=== PATIENT | female | born 1985 | race Caucasian/White ===

== ENCOUNTER 2017-07-12 01:26 | Inpatient (IN) | payer OTHER, SELFPAY ==
--- NOTE | 2017-07-12 02:10 | ED PDOC ---
Syncope/Near Syncope/Dizziness Time Seen by Provider: 07/12/17 01:29 Chief Complaint (Nursing): Dizziness/Lightheaded Chief Complaint (Provider): Dizzy, feeling "shaky" History Per: Patient Additional Complaint(s): 29 yo female with PMHx of cirrhosis, Ascites, umbilical hernia, splenomegaly,thrombocytopenia and anemia, presents to ED dizziness and feeling "jittery." Pt reports she is supposed to be on Lactulose; however, has not taken it in 3 days because "she can not handle the medication anymore." Past Medical History Reviewed: Nursing Documentation, Vital Signs Vital Signs: Last Vital Signs Temp 98.7 F 07/12/17 01:52 Pulse 91 H 07/12/17 01:52 Resp 18 07/12/17 01:52 BP 106/66 07/12/17 01:52 Pulse Ox 99 07/12/17 01:52 - Medical History PMH: Anemia Denies: HIV, Chronic Kidney Disease Other PMH: Cirrhosis - Family History Family History: States: Unknown Family Hx - Living Arrangements Living Arrangements: With Family - Social History Current smoker - smoking cessation education provided: No Alcohol: None Drugs: Denies - Home Medications Home Medications: Ambulatory Orders Medication Instructions Recorded Spironolactone [Aldactone] 100 mg PO BID #60 tablet 09/10/15 Calcium Carbonate/Vitamin D3 2 tab PO DAILY 07/12/17 [Calcium 1,000 + D3 Caplet] Folic Acid [Folic Acid] 1 tab PO DAILY 07/12/17 Furosemide [Lasix] 1.5 tab PO BID 07/12/17 Magnesium Oxide [Mag-Oxide 400 mg PO BID 07/12/17 Magnesium] Midodrine HCl [Midodrine HCl] 5 mg PO TID 07/12/17 Nadolol [Corgard] 20 mg PO DAILY 07/12/17 Pantoprazole [Protonix EC Tab] 40 mg PO DAILY 07/12/17 Zinc Gluconate [Zinc] 50 mg PO DAILY 07/12/17 levETIRAcetam [Keppra] 500 mg PO BID 07/12/17 - Allergies Allergies/Adverse Reactions: Allergies Allergy/AdvReac Type Severity Reaction Status Date / Time Seafood Allergy RASH Uncoded 09/02/15 06:26 Review of Systems ROS Statement: Except As Marked, All Systems Reviewed And Found Negative Neurological: Positive for: Dizziness, Other ("jittery") Physical Exam - Reviewed Nursing Documentation Reviewed: Yes Vital Signs Reviewed: Yes - Physical Exam Appears: Positive for: Well, Non-toxic, No Acute Distress Head Exam: Positive for: ATRAUMATIC, NORMAL INSPECTION, NORMOCEPHALIC Skin: Positive for: Normal Color, Warm, DRY Eye Exam: Positive for: EOMI, Normal appearance, PERRL ENT: Positive for: Normal ENT Inspection Neck: Positive for: Normal, Painless ROM Cardiovascular/Chest: Positive for: Regular Rate, Rhythm Respiratory: Positive for: CNT, Normal Breath Sounds Gastrointestinal/Abdominal: Positive for: Normal Exam, Bowel Sounds, Soft Back: Positive for: Normal Inspection Extremity: Positive for: Normal ROM Neurologic/Psych: Positive for: Alert, Oriented - Laboratory Results Result Diagrams: 07/12/17 02:23 07/12/17 02:23 - ECG O2 Sat by Pulse Oximetry: 99 Medical Decision Making Medical Decision Making: Diagnostics ordered. labs discussed with ED MD, Dr. Cole, who agreed with obs at this time. Pt thrombocytopenic and ammonia level 75. Dr. christian contacted and presented to see and evaluate Pt at bedside. Arrangements made for obs Disposition - Clinical Impression Clinical Impression: Thrombocytopenia, Dizziness - Patient ED Disposition Is Patient to be Admitted: Yes - Disposition Disposition Time: 04:46 Condition: STABLE - Pt Status Changed To: Hospital Disposition Of: Observation
[2017-07-12 02:37] LABS: BASO % 0.3 % (0.0-2.0); EOS % 0.1 % (0.0-4.0); HEMATOCRIT 28.1 % (34.0-47.0); LYMPH # 0.2 K/uL (1.0-4.3); LYMPH % 6.5 % (20.0-40.0); MEAN CELL VOLUME 96.2 fl (81.0-99.0); MEAN CORPUSCULAR HEMOGLOBIN 32.1 pg (27.0-31.0); MEAN CORPUSCULAR HGB CONC 33.3 g/dL (33.0-37.0); MEAN PLATELET VOLUME 10.2 fl (7.2-11.7); MONO # 0.3 K/uL (0.0-0.8); MONO % 8.8 % (0.0-10.0); NEUT # 2.6 K/uL (1.8-7.0); NEUT % 84.3 % (50.0-75.0); RED CELL DISTRIBUTION WIDTH 16.6 % (11.5-14.5); WHITE BLOOD COUNT 3.1 K/uL (4.8-10.8)
[2017-07-12 02:46] LABS: RBC URINE 25 /hpf (0-3); URINE BACTERIA OCC (<OCC); URINE BILIRUBIN NEGATIVE (NEGATIVE); URINE BLOOD LARGE (NEGATIVE); URINE COLOR AMBER (YELLOW); URINE GLUCOSE (UA) NEG (Normal); URINE KETONE NEGATIVE (NEGATIVE); URINE LEUKOCYTE ESTERASE NEG Leu/uL (Negative); URINE PROTEIN 30 mg/dL (NEGATIVE); WBC URINE 5 /hpf (0-5)
[2017-07-12 02:48] LABS: ALB/GLOB RATIO 0.8 (1.0-2.1); ALCOHOL SERUM < 10 mg/dl (0-10); ALKALINE PHOSPHATASE 121 U/L (38-126); ALT/SGPT 74 U/L (9-52); AST/SGOT 57 U/L (14-36); BILIRUBIN,TOTAL 2.9 mg/dl (0.2-1.3); BLOOD UREA NITROGEN 19 mg/dl (7-17); CALCIUM 7.7 mg/dL (8.4-10.2); CARBON DIOXIDE 20 mmol/L (22-30); CHLORIDE 110 mmol/L (98-107); GFR AFRICAN-AMERICAN > 60; GLUCOSE,RANDOM 144 mg/dL (65-105); POTASSIUM 3.8 MMOL/L (3.6-5.0); SODIUM 137 mmol/l (132-148); TOTAL PROTEIN 5.7 G/DL (6.3-8.2)
[2017-07-12 03:12] LABS: EOSINOPHIL 1 % (0-7); NEUTROPHIL 85 % (42-75); TOTAL CELLS COUNTED 100
[2017-07-12 03:16] LABS: PLATELET COUNT 11 K/uL (130-400)
--- NOTE | 2017-07-12 04:05 | CT ---
EXAM: CT Head Without Intravenous Contrast CLINICAL HISTORY: 31 years old, female; Signs and symptoms; Dizziness; Additional info: Dizzy TECHNIQUE: Axial computed tomography images of the head/brain without intravenous contrast. All CT scans at this facility use one or more dose reduction techniques, viz.: automated exposure control; ma/kV adjustment per patient size (including targeted exams where dose is matched to indication; i.e. head); or iterative reconstruction technique. Coronal and sagittal reformatted images were created and reviewed. COMPARISON: No relevant prior studies available. FINDINGS: Brain: No intracranial hemorrhage. No mass. Minimal encephalomalacia within RIGHT frontal region. Few scattered subtle foci of decreased attenuation within periventricular/subcortical white matter. No definite edema. Ventricles: No hydrocephalus. Bones/joints: No acute fracture. Postsurgical changes of RIGHT frontal bone. Mild chronic deformity RIGHT mandibular condyle. Soft tissues: Unremarkable. Sinuses: No acute sinusitis. Mastoid air cells: No mastoid effusion. Orbits: Unremarkable as visualized. IMPRESSION: 1. Nonspecific white matter changes. Acute infarction may be CT occult within first 24 hours. If a focal deficit persists, consider followup CT or MRI for further evaluation. 2. Incidental/non-acute findings are described above.
--- NOTE | 2017-07-12 04:47 | CP.PCM.HP ---
History of Present Illness - History of Present Illness History of Present Illness: 31 y/o female with a PMHx remarkable for liver failure of unknown etiology presents to the [facility] ED today complaining of jitteryness and shakiness. Pt reports she has been feeling a little more nauseous recently and was unable to take her lactulose as prescribed because "she couldnt bear the taste and nausea " anymore. She reports she was last seen by her PMD on , and everything was going well but she began to feel ill. She contacted her PMD and he told her to go to the nearest hospital for evaluation. She reports feeling subjective fevers, w/o chills, denies sick contacts. Denies any CP/SOB/palpitiations, V/D/C , urinary symptoms. Has been compliant with all other medications. ROS: as per HPI PMD: PMD and entire team of specialists is located at [facility] in [place], she reports she is compliant with follow up PMHx: liver cirrhosis of unknown etiology, pancytopenia, brain aneurysmal rupture 4 months ago in [place]? Currently on waitlist for liver transplant Meds: as per med rec, confirmed with pt ALL: seafood Psurghx: denies SocialHx: denies hx of ETOH/tobacco/drug abuse Familyhx: denies any family hx of cancers, CAD, [place], genetic abnormalities ED course: CBC CMP Ammonia troponin utox serum alcohol Noncontrast head ct ekg Present on Admission - Present on Admission Any Indicators Present on Admission: No Past Patient History - Infectious Disease Hx of Infectious Diseases: None - Past Medical History & Family History Past Medical History?: Yes - Past Social History Smoking Status: Never Smoked Alcohol: None Drugs: Denies Home Situation {Lives}: With Family Domestic Violence: Negative - CARDIAC Hx Cardiac Disorders: No - PULMONARY Hx Respiratory Disorders: No - NEUROLOGICAL Hx Neurological Disorder: Yes HX Cerebrovascular Accident: Yes - HEENT Hx HEENT Problems: No - RENAL Hx Chronic Kidney Disease: No - ENDOCRINE/METABOLIC Hx Endocrine Disorders: No - HEMATOLOGICAL/ONCOLOGICAL Hx Anemia: Yes Hx Human Immunodeficiency Virus (HIV): No - INTEGUMENTARY Hx Dermatological Problems: Yes Hx Psoriasis: Yes - MUSCULOSKELETAL/RHEUMATOLOGICAL Hx Musculoskeletal Disorders: No - GASTROINTESTINAL Hx Gastrointestinal Disorders: Yes Other/Comment: Umbilical Hernia - GENITOURINARY/GYNECOLOGICAL Hx Genitourinary Disorders: No - PSYCHIATRIC Hx Psychophysiologic Disorder: No Hx Substance Use: No - SURGICAL HISTORY Hx Surgeries: No - ANESTHESIA Hx Anesthesia: No Meds Allergies/Adverse Reactions: Allergies Allergy/AdvReac Type Severity Reaction Status Date / Time Seafood Allergy RASH Uncoded 09/02/15 06:26 Physical Exam - Constitutional Appears: Non-toxic, No Acute Distress - Head Exam Head Exam: ATRAUMATIC, NORMOCEPHALIC - Eye Exam Eye Exam: EOMI, PERRL, Scleral icterus. absent: Conjunctival injection, Periorbital swelling - ENT Exam ENT Exam: Mucous Membranes Moist - Neck Exam Neck exam: Positive for: Full Rom, Thyromegaly. Negative for: Lymphadenopathy, Tenderness - Respiratory Exam Respiratory Exam: Clear to Auscultation Bilateral, NORMAL BREATHING PATTERN. absent: Rales, Rhonchi, Wheezes - Cardiovascular Exam Cardiovascular Exam: REGULAR RHYTHM, RRR, +S1, +S2. absent: Tachycardia, Gallop , JVD, Rubs, Systolic Murmur - GI/Abdominal Exam GI & Abdominal Exam: Distended (secondary to ascities as per pt ), Hernia (guicho- umbilical hernia ), Normal Bowel Sounds, Soft. absent: Organomegaly, Pulsatile Mass, Rebound, Rigid, Tenderness - Extremities Exam Extremities exam: Positive for: normal inspection, pedal pulses present. Negative for: calf tenderness, pedal edema, tenderness - Back Exam Back exam: NORMAL INSPECTION - Neurological Exam Neurological exam: Alert, CN II-XII Intact, Oriented x3, Reflexes Normal Additional comments: mild asterexis appreciated in both hands - Psychiatric Exam Psychiatric exam: Normal Affect, Normal Mood - Skin Skin Exam: Dry, Intact, Normal Color, Warm Results - Vital Signs Recent Vital Signs: Last Vital Signs Temp 98.7 F 07/12/17 01:52 Pulse 93 H 07/12/17 04:40 Resp 18 07/12/17 01:52 BP 106/66 07/12/17 01:52 Pulse Ox 99 07/12/17 02:11 - Labs Result Diagrams: 07/12/17 02:23 07/12/17 02:23 Labs: Laboratory Results - last 24 hr 07/12/17 07/12/17 07/12/17 02:23 02:23 02:29 WBC 3.1 L D RBC 2.92 L Hgb 9.4 L Hct 28.1 L MCV 96.2 D MCH 32.1 H MCHC 33.3 RDW 16.6 H Plt Count 11 L* D MPV 10.2 Neut % (Auto) 84.3 H Lymph % (Auto) 6.5 L [place] % (Auto) 8.8 Eos % (Auto) 0.1 Baso % (Auto) 0.3 Neut # 2.6 Lymph # 0.2 L [place] # 0.3 Eos # 0.0 Baso # 0.0 Neutrophils % (Manual) 85 H Band Neutrophils % 1 Lymphocytes % (Manual) 10 L Monocytes % (Manual) 3 Eosinophils % (Manual) 1 Platelet Estimate Markedly decreased L Poikilocytosis (manual Slight Anisocytosis (manual) Slight Ovalocytes Slight Sodium 137 Potassium 3.8 Chloride 110 H Carbon Dioxide 20 L Anion Gap 11 BUN 19 H Creatinine 0.7 Est GFR ( Amer) > 60 Est GFR (Non-Af Amer) > 60 Random Glucose 144 H Calcium 7.7 L Total Bilirubin 2.9 H AST 57 H ALT 74 H D Alkaline Phosphatase 121 Ammonia Troponin I < 0.0120 Total Protein 5.7 L Albumin 2.5 L Globulin 3.3 Albumin/Globulin Ratio 0.8 L Urine Color Urine Clarity Urine pH Ur Specific [place] Urine Protein Urine Glucose (UA) Urine Ketones Urine Blood Urine Nitrate Urine Bilirubin Urine Urobilinogen Ur Leukocyte Esterase Urine RBC (Auto) Urine Microscopic WBC Ur Squamous Epith Cells Urine Bacteria Urine Opiates Screen Negative Urine Methadone Screen Negative Ur Barbiturates Screen Negative Ur Phencyclidine Scrn Negative Ur Amphetamines Screen Negative U Benzodiazepines Scrn Negative U Oth Cocaine Metabols Negative U Cannabinoids Screen Negative Alcohol, Quantitative < 10 07/12/17 07/12/17 02:29 03:17 WBC RBC Hgb Hct MCV MCH MCHC RDW Plt Count MPV Neut % (Auto) Lymph % (Auto) [place] % (Auto) Eos % (Auto) Baso % (Auto) Neut # Lymph # [place] # Eos # Baso # Neutrophils % (Manual) Band Neutrophils % Lymphocytes % (Manual) Monocytes % (Manual) Eosinophils % (Manual) Platelet Estimate Poikilocytosis (manual Anisocytosis (manual) Ovalocytes Sodium Potassium Chloride Carbon Dioxide Anion Gap BUN Creatinine Est GFR ( Amer) Est GFR (Non-Af Amer) Random Glucose Calcium Total Bilirubin AST ALT Alkaline Phosphatase Ammonia 75 H D Troponin I Total Protein Albumin Globulin Albumin/Globulin Ratio Urine Color Sri Urine Clarity Cloudy Urine pH 5.0 Ur Specific [place] 1.023 Urine Protein 30 Urine Glucose (UA) Neg Urine Ketones Negative Urine Blood Large Urine Nitrate Negative Urine Bilirubin Negative Urine Urobilinogen 4.0 H Ur Leukocyte Esterase Neg Urine RBC (Auto) 25 H Urine Microscopic WBC 5 Ur Squamous Epith Cells 1 Urine Bacteria Occ H Urine Opiates Screen Urine Methadone Screen Ur Barbiturates Screen Ur Phencyclidine Scrn Ur Amphetamines Screen U Benzodiazepines Scrn U Oth Cocaine Metabols U Cannabinoids Screen Alcohol, Quantitative Assessment & Plan - Assessment and Plan (Free Text) Assessment: 31 y/o female with PMHx of liver failure and pancytopenia admitted for elevated ammonia levels with asterexis. Plan: 1) Asterexis secondary to elevated Ammonia -start Lactulose 10mg PO QD for 2-3 BMs per day -repeat ammonia level -low protein, low salt hepatic diet -monitor vitals 2) pancytopenia -chronic as per pt, currently being followed by at [facility] -monitor 3) liver cirrhosis of unknown etiology -pt was worked up at [facility] -currently being followed by GI in [facility], awaiting transplant -resume home meds 4) DVT PPx -platelets: 11 -SCDs prn -Lovenox contraindicated
[2017-07-12 04:57] LABS: PARTIAL THROMBOPLASTIN TIME 45.4 Seconds (25.6-37.1)
[2017-07-12] MEDS ORDERED: Lactulose 10 gm/15 ml Syrup PO PRN (06:30)
--- NOTE | 2017-07-12 08:41 | CP.PCM.PN ---
Subjective - Date & Time of Evaluation Date of Evaluation: 07/12/17 Time of Evaluation: : - Subjective Subjective: Progress Note for Dr. Araya 31 year old female with a PMHx remarkable for liver failure seen at bedside. Patient is in NAD and AAOx3. Patient reports that she continues to feel nausea and fever with jitteriness and shakiness. She also reports feeling full despite eating very little. She ate a bowl of cereal last night. She reports she hasn't produce a BM for the past 2 days. She reports she can sit in the bathroom for a long time feeling the urge to go but won't be able to produce any BM. She doesn' t want to take the lactulose as prescribed because she reports the medication makes her more nauseated. Patient denies shortness of breath, chills, chest pain, palpitations. Denies Calf tenderness. No acute events overnight. Interpretation service used: Al[facility] [id number] Gynx- Last LMP is 2 years ago. Objective - Vital Signs/Intake and Output Vital Signs (last 24 hours): Temp Pulse Resp BP Pulse Ox 100.2 F H 110 H 19 105/69 98 07/12/17 08:13 07/12/17 08:13 07/12/17 08:13 07/12/17 08:13 07/12/17 08:13 - Medications Medications: Current Medications Folic Acid (Folic Acid) 1 mg PO DAILY [facility] Furosemide (Lasix) 60 mg PO BID [facility] Home Med (Calcium Carbonate/Vitamin D3 [Calcium 1,000 + D3 Caplet]) 2 tab PO DAILY [facility] Home Med (Zinc Gluconate [Zinc]) 50 mg PO DAILY [facility] Lactulose (Enulose) 10 gm PO DAILY PRN PRN Reason: Constipation Levetiracetam (Keppra) 500 mg PO BID [facility] Magnesium Oxide (Mag-Ox) 400 mg PO BID [facility] Midodrine (Proamatine) 5 mg PO TID [facility] Nadolol (Corgard) 20 mg PO DAILY [facility] Ondansetron HCl (Zofran Inj) 4 mg IVP Q6 PRN PRN Reason: Nausea/Vomiting Last Admin: 07/12/17 05:33 Dose: 4 mg Pantoprazole Sodium (Protonix Ec Tab) 40 mg PO DAILY [facility] Spironolactone (Aldactone) 100 mg PO BID [facility] - Labs Labs: 07/12/17 02:23 07/12/17 02:23 PT 21.5 Seconds (9.8-13.1) H 07/12/17 04:44 INR 1.9 (0.9-1.2) H 07/12/17 04:44 APTT 45.4 Seconds (25.6-37.1) H 07/12/17 04:44 - Constitutional Appears: No Acute Distress, Chronically Ill - Head Exam Head Exam: NORMAL INSPECTION - Eye Exam Eye Exam: EOMI, Normal appearance Additional comments: mild scleral icterus - ENT Exam ENT Exam: Mucous Membranes Moist - Neck Exam Neck Exam: Full ROM - Respiratory Exam Respiratory Exam: Clear to Ausculation Bilateral, NORMAL BREATHING PATTERN. absent: Decreased Breath Sounds, Prolonged Expiratory Phase, Rales, Rhonchi, Wheezes, Respiratory Distress, Stridor - Cardiovascular Exam Cardiovascular Exam: REGULAR RHYTHM, +S1, +S2 - GI/Abdominal Exam GI & Abdominal Exam: Tenderness, Hernia, Normal Bowel Sounds. absent: Pulsatile Mass, Rebound Additional comments: Splenomegaly - Extremities Exam Extremities Exam: Normal Capillary Refill, Normal Inspection. absent: Tenderness - Neurological Exam Neurological Exam: Alert, Awake, Oriented x3 Additional comments: mild asterexis appreciated in both hands - Psychiatric Exam Psychiatric exam: Normal Affect, Normal Mood Assessment and Plan - Assessment and Plan (Free Text) Assessment: 31 y/o female with PMHx of liver failure and pancytopenia admitted for elevated ammonia levels with asterexis. Plan: Asterexis secondary to elevated Ammonia in pt with Liver Cirrhosis -repeat ammonia level in AM -start pt on Rifaximin 500mg PO BID -GI consulted Dr. Betancourt- recommendations appreciated -will call [facility] where her GI and PMD is located -[facility] Liver Clinic Phone ([place]): [phone] Abdominal Pain with Liver Cirrhosis -Tmax 100.2 -will abdomen and pelvis CT w/ contrast ordered -will be NPO for now -will evaluate for ascites w/ CT abdomen and pelvis and consult IR -IR consulted Dr. Luna- recommendations appreciated Fever with Liver Cirrhosis -Tmax 100.2 -ordered chest x-ray r/o pneumonia -influenza A/B swab ordered -blood culture ordered -urine culture ordered Constipation -one dose Lactulose 200gm WV x1 -start pt on Rifaximin 500mg PO BID Pancytopenia- Chronic -repeat CBC in AM -H/H(9.4/28.1) -will continue to monitor -PT/INR/PTT (21.5/1.9/45.4) DVT PPx -SCDs indicated -Platelets: 11 -Lovenox contraindicated Diet -NPO status (ordered after breakfast this AM) -dietitian consulted- for screen- recommendations appreciated -will advance after CT abdomen and pelvis Status -Full Code
[2017-07-12] MEDS: Magnesium Oxide 400 mg Tab UD PO SCH ×2 (08:43→17:32)
[2017-07-12] MEDS ORDERED: Pantoprazole 40 mg EC Tab PO SCH (09:00)
[2017-07-12] MEDS ORDERED: CHOLECALCIFEROL 1000 UNIT PO SCH (09:00)
[2017-07-12] MEDS ORDERED: ZINC GLUCONATE 50 MG PO SCH (09:00)
[2017-07-12] MEDS ORDERED: CALCIUM CARBONATE 1200 MG PO SCH (09:00)
[2017-07-12] MEDS ORDERED: Barium Sulfate Susp 2.1% w/v, 2.0% w/w 450 mL Bottle PO ONE ×3 (11:00→11:58)
[2017-07-12] MEDS ORDERED: Lactulose 10 gm/15 ml (Rectal Use) PR ONE (11:00)
--- NOTE | 2017-07-12 12:04 | CARD ---
APPROVED REPORT EKG Measurement Heart [id number] <Conclusion> Normal sinus rhythm Normal ECG
[2017-07-12] MEDS ORDERED: Iohexol 300 100 ML IJ ONE (17:04)
[2017-07-12] MEDS ORDERED: Sodium Chloride 0.9% 50 ML IV ONE (17:05)
--- NOTE | 2017-07-12 17:58 | CT ---
PROCEDURE: CT Abdomen and Pelvis with contrast HISTORY: Abdominal Pain, SBP, Colitis, Cirrhosis COMPARISON: Comparison is made to the previous study dated 08/21/2015 TECHNIQUE: Contrast dose: 90 mL of Omnipaque 300. Axial and reformatted coronal and sagittal CT images of the abdomen and pelvis were obtained after IV and oral contrast administration. Radiation dose: Total exam DLP = 409.22 mGy-cm. This CT exam was performed using one or more of the following dose reduction techniques: Automated exposure control, adjustment of the mA and/or kV according to patient size, and/or use of iterative reconstruction technique. FINDINGS: LOWER THORAX: Mild congestion is noted at the lung bases. No evidence of acute pathology otherwise. LIVER: Advanced cirrhotic morphology of the liver is again noted. The central portion of the portal vein is dilated. The hepatic veins are not visualized in this study. No evidence of discrete enhancing mass lesion in the liver. GALLBLADDER AND BILE DUCTS: The gallbladder is mildly distended contains slightly high attenuation which could be due to contrast concentration in the gallbladder versus sludge. No evidence of acute cholecystitis P PANCREAS: No evidence of acute pathology in the pancreas. The main pancreatic duct is not dilated. SPLEEN: The spleen is moderately to markedly enlarged likely due to severe portal hypertension. ADRENALS: Unremarkable. No mass. KIDNEYS AND URETERS: Unremarkable. No hydronephrosis. No solid mass. VASCULATURE: There are markedly dilated collateral vessels in the mid and upper abdomen consistent with portal systemic shunt due to severe portal hypertension. The abdominal aorta is normal in caliber. BOWEL: Ascending colon moderate wall thickening is noted likely represent colitis. The descending and sigmoid colon are not distended therefore cannot be evaluated. No evidence of small bowel obstruction. APPENDIX: No evidence of appendicitis. PERITONEUM: There is small to moderate ascites in the abdomen and pelvis. LYMPH NODES: Mildly enlarged razia hepatis lymph nodes are noted. BLADDER: Unremarkable. REPRODUCTIVE: Unremarkable. BONES: No acute fracture. OTHER FINDINGS: There is umbilical hernia contains fluid measures 7 centimeter in the transverse diameter and 4 centimeter in the AP diameter. IMPRESSION: Re- demonstration of advanced cirrhosis associated with severe portal hypertension as described above. Marked splenomegaly likely due to portal hypertension. Markedly dilated collateral vessels in the upper abdomen. Ascending colon wall thickening highly suspicious for colitis. Small to moderate ascites. Umbilical hernia contains fluid .
[2017-07-12] MEDS: Ciprofloxacin 200mg/100ml D5W 100 ML IVPB SCH (20:31)
[2017-07-12] MEDS ORDERED: HYDROmorphone 0.5 mg/0.5 ml ISec IVP ONE (23:53)
[2017-07-13 06:57] LABS: BLOOD UREA NITROGEN 15 mg/dl (7-17); CARBON DIOXIDE 18 mmol/L (22-30); CHLORIDE 109 mmol/L (98-107); GFR AFRICAN-AMERICAN > 60; GLUCOSE,RANDOM 84 mg/dL (65-105)
[2017-07-13 06:59] LABS: SODIUM 131 mmol/l (132-148)
[2017-07-13 07:08] LABS: BASO % 0.3 % (0.0-2.0); EOS % 0.5 % (0.0-4.0); HEMATOCRIT 25.6 % (34.0-47.0); LYMPH # 0.2 K/uL (1.0-4.3); LYMPH % 6.9 % (20.0-40.0); MEAN CELL VOLUME 94.8 fl (81.0-99.0); MEAN CORPUSCULAR HEMOGLOBIN 32.5 pg (27.0-31.0); MEAN CORPUSCULAR HGB CONC 34.3 g/dL (33.0-37.0); MEAN PLATELET VOLUME 9.8 fl (7.2-11.7); MONO # 0.4 K/uL (0.0-0.8); MONO % 11.1 % (0.0-10.0); NEUT # 2.8 K/uL (1.8-7.0); NEUT % 81.2 % (50.0-75.0); NRBC % 0.2 % (0.0-0.0); RED CELL DISTRIBUTION WIDTH 16.8 % (11.5-14.5); WHITE BLOOD COUNT 3.5 K/uL (4.8-10.8)
[2017-07-13 07:27] LABS: CALCIUM 7.5 mg/dL (8.4-10.2); POTASSIUM 3.8 MMOL/L (3.6-5.0)
--- NOTE | 2017-07-13 08:07 | CP.PCM.PN ---
Subjective - Date & Time of Evaluation Date of Evaluation: 07/13/17 Time of Evaluation: 07:25 - Subjective Subjective: Pt seen and examined at bedside this morning. Pt reports she still has mild nausea but it's getting better. Reports one episode of NBNB vomiting yesterday after taking lactulose. Reports 3 small BM yesterday and one small BM this morning. Tolerating PO. Pt had fever last night (100.5 F Tmax). Denies hematochezia, melena, BRBPR, chest pain,dyspnea, calf pain or chills. Objective - Vital Signs/Intake and Output Vital Signs (last 24 hours): Temp Pulse Resp BP Pulse Ox 99.6 F 96 H 20 100/66 100 07/13/17 00:41 07/13/17 00:41 07/13/17 00:41 07/13/17 00:41 07/13/17 00:41 - Medications Medications: Current Medications Folic Acid (Folic Acid) 1 mg PO DAILY [facility] Last Admin: 07/12/17 08:43 Dose: 1 mg Furosemide (Lasix) 40 mg PO DAILY [facility] Home Med (Calcium Carbonate/Vitamin D3 [Calcium 1,000 + D3 Caplet]) 2 tab PO DAILY [facility] Ciprofloxacin (Cipro 200mg/100ml D5w) 100 mls @ 100 mls/hr IVPB Q12 [facility] Last Admin: 07/12/17 20:31 Dose: 100 mls/hr Lactulose (Enulose) 10 gm PO DAILY PRN PRN Reason: Constipation Last Admin: 07/12/17 08:59 Dose: 10 gm Magnesium Oxide (Mag-Ox) 400 mg PO BID [facility] Last Admin: 07/12/17 17:32 Dose: 400 mg Midodrine (Proamatine) 10 mg PO ONCE [facility] Ondansetron HCl (Zofran Inj) 4 mg IVP Q6 PRN PRN Reason: Nausea/Vomiting Last Admin: 07/12/17 14:18 Dose: 4 mg Phytonadione (Vitamin K Tab) 5 mg PO ONCE [facility] Rifaximin (Xifaxan) 550 mg PO BID [facility] PRN Reason: Protocol Last Admin: 07/12/17 17:32 Dose: 550 mg Spironolactone (Aldactone) 100 mg PO DAILY [facility] - Labs Labs: 07/13/17 05:45 07/13/17 05:45 PT 21.5 Seconds (9.8-13.1) H 07/12/17 04:44 INR 1.9 (0.9-1.2) H 07/12/17 04:44 APTT 45.4 Seconds (25.6-37.1) H 07/12/17 04:44 - Constitutional Appears: No Acute Distress - Eye Exam Eye Exam: Normal appearance. absent: Scleral icterus - ENT Exam ENT Exam: Mucous Membranes Moist - Neck Exam Neck Exam: Full ROM, Normal Inspection. absent: Lymphadenopathy - Respiratory Exam Respiratory Exam: Clear to Ausculation Bilateral. absent: Rales, Rhonchi, Wheezes - Cardiovascular Exam Cardiovascular Exam: REGULAR RHYTHM, RRR, +S1, +S2. absent: Murmur - GI/Abdominal Exam GI & Abdominal Exam: Soft, Organomegaly (splenomegaly). absent: Guarding, Tenderness - Extremities Exam Extremities Exam: Normal Capillary Refill. absent: Calf Tenderness, Pedal Edema - Neurological Exam Neurological Exam: Alert, Awake, Oriented x3 Additional comments: No asterixis appreciated - Psychiatric Exam Psychiatric exam: Normal Affect, Normal Mood - Skin Skin Exam: absent: Petechiae Assessment and Plan - Assessment and Plan (Free Text) Assessment: 31 y/o female with PMHx of liver failure and pancytopenia admitted for elevated ammonia levels with resolved asterixis. Plan: Pancytopenia- Chronic -Hematology/oncology consult w/ Dr. Richmond appreciated. -CBC: 3.5>8.8/25.6<13 -PT/INR/PTT (21.5/1.9/45.4) -Platelet transfusion today. -will continue to monitor Hyperammonemia with Liver Cirrhosis -Resolving -Repeat ammonia level is 40 -Continue w/ Rifaximin 500mg PO BID -GI consulted Dr. Betancourt- recommendations appreciated -will call [facility] where her GI and PMD is located -[facility] Liver Clinic Phone ([place]): [phone] Fever with Liver Cirrhosis -Tmax 100.5 last night -F/U on blood cx and urine cx -Abdomen and pelvis CT: -Re-demonstration of advanced liver cirrhosis w/ severe portal HTN. -Marked splenomegaly and markedly dilated collateral vessels. -Ascending colon wall thickening highly suspicious of colitis. -Small to moderate ascites. -Umbilical hernia contains fluid. -Continue with ciprofloxacin 200 mg/100ml IV q12. DVT Prophylaxis: -SCDs indicated -Platelets: 13 -Lovenox contraindicated Diet -Altered GI/hepatic diet: low protein. -dietitian consulted- for screen- recommendations appreciated Status -Full Code
[2017-07-13] MEDS: Pantoprazole 40 mg EC Tab PO SCH (08:53)
[2017-07-13] MEDS: CHOLECALCIFEROL 1000 UNIT PO SCH (08:54)
[2017-07-13] MEDS: CALCIUM CARBONATE 1200 MG PO SCH (08:54)
[2017-07-13] MEDS: Ciprofloxacin 200mg/100ml D5W 100 ML IVPB SCH ×2 (08:55→21:47)
[2017-07-13] MEDS: Magnesium Oxide 400 mg Tab UD PO SCH ×2 (08:55→17:26)
--- NOTE | 2017-07-13 10:23 | CP.PCM.CON ---
History of Present Illness - History of Present Illness History of Present Illness: Hematology's consult note by Dr. June Richmond. This is a 31 y/o female with PMHx Liver Cirrhosis of unknown etiology as per patient diagnosed via Biopsy in [facility] at age 23. Patient states that yesterday she called her Liver doctor at [facility] because she was having jitteryness and shakiness of her hands associated with poor balance, gait instability, and her doctor asked her to go to the nearest hospital for further evaluation. Patient reports a chronic history of thrombocytopenia, and she has been receiving platelet's transfusion approximately every 3 months for more than 1 year at [facility], last platelet transfusion was less than 1 month ago. After platelets transfusion her platelet's count improves, but never goes up to normal levels. She also reports a h/o low RBC count, and she has gotten PRBC transfusion in the past, but not regularly, last PRBC transfusion was 4 months ago. She denies any history of alcohol abuse, Hepatitis, never smoker. She reports that 4 years ago she had an episode of hematemesis, went for an EGD, was found to have bleeding esophageal varices, and had band ligation. She denies any other GI bleeding episode, but she goes for surveillance endoscopy, and last EGD was done approximately 2 months ago. Patient does not know if she has low vitamin B12 levels, but she states that she has been taking Iron supplements at home. She is in Liver transplant waiting list. Patient states that her LMP was 2 years ago,and she is not in any hormonal treatment. Denies any history of blood products transfusion reaction. Pt reports she has been feeling a little more nauseous recently and was unable to take her lactulose as prescribed because "she couldnt bear the taste and nausea" anymore. At this evaluation she states that her symptoms hands shaking sensation is better this morning, and she denies pain, blood in urine/stools, N/V, CP, SOB, dizziness, fevers, chills. patient does not want to stay for too long. She states that she would like to go back to her regular doctor and hospital, [facility] , for any further work up or treatment because they have all her records. She will stay for the platelet transfusion, but then she would like to go home. PMHx: as above FHx: Denies Social Hx: denies smoking, EOTH, and recreational drugs. Review of Systems - Review of Systems All systems: reviewed and no additional remarkable complaints except (HPI) Past Patient History - Infectious Disease Hx of Infectious Diseases: None - Past Medical History & Family History Past Medical History?: Yes - Past Social History Smoking Status: Never Smoked - CARDIAC Hx Cardiac Disorders: No - PULMONARY Hx Respiratory Disorders: No - NEUROLOGICAL Hx Neurological Disorder: Yes - HEENT Hx HEENT Problems: No - RENAL Hx Chronic Kidney Disease: No - ENDOCRINE/METABOLIC Hx Endocrine Disorders: No - HEMATOLOGICAL/ONCOLOGICAL Hx Anemia: Yes Hx Blood Transfusions: Yes Hx Blood Transfusion Reaction: No Hx Bruising: Yes Hx Cirrhosis: Yes Hx Human Immunodeficiency Virus (HIV): No - INTEGUMENTARY Hx Dermatological Problems: Yes - MUSCULOSKELETAL/RHEUMATOLOGICAL Hx Musculoskeletal Disorders: No - GASTROINTESTINAL Hx Gastrointestinal Disorders: Yes Other/Comment: Umbilical Hernia - GENITOURINARY/GYNECOLOGICAL Hx Genitourinary Disorders: No - PSYCHIATRIC Hx Psychophysiologic Disorder: No - SURGICAL HISTORY Hx Surgeries: No Hx Splenectomy: Yes Other/Comment: surgery head-4 mos ago - ANESTHESIA Hx Anesthesia: No Hx Anesthesia Reactions: Yes Hx Malignant Hyperthermia: No Meds Allergies/Adverse Reactions: Allergies Allergy/AdvReac Type Severity Reaction Status Date / Time Seafood Allergy RASH Uncoded 09/02/15 06:26 - Medications Medications: Current Medications Folic Acid (Folic Acid) 1 mg PO DAILY [facility] Last Admin: 07/13/17 08:54 Dose: 1 mg Furosemide (Lasix) 40 mg PO DAILY [facility] Last Admin: 07/13/17 08:53 Dose: 40 mg Home Med (Calcium Carbonate/Vitamin D3 [Calcium 1,000 + D3 Caplet]) 2 tab PO DAILY [facility] Last Admin: 07/13/17 08:54 Dose: 2 tab Ciprofloxacin (Cipro 200mg/100ml D5w) 100 mls @ 100 mls/hr IVPB Q12 [facility] Last Admin: 07/13/17 08:55 Dose: 100 mls/hr Lactulose (Enulose) 10 gm PO DAILY PRN PRN Reason: Constipation Last Admin: 07/12/17 08:59 Dose: 10 gm Levetiracetam (Keppra) 500 mg PO DAILY [facility] Magnesium Oxide (Mag-Ox) 400 mg PO BID [facility] Last Admin: 07/13/17 08:55 Dose: 400 mg Midodrine (Proamatine) 10 mg PO ONCE [facility] Ondansetron HCl (Zofran Inj) 4 mg IVP Q6 PRN PRN Reason: Nausea/Vomiting Last Admin: 07/12/17 14:18 Dose: 4 mg Pantoprazole Sodium (Protonix Ec Tab) 40 mg PO DAILY [facility] Last Admin: 07/13/17 08:53 Dose: 40 mg Phytonadione (Vitamin K Tab) 5 mg PO ONCE [facility] Rifaximin (Xifaxan) 550 mg PO BID [facility] PRN Reason: Protocol Last Admin: 07/13/17 08:54 Dose: 550 mg Spironolactone (Aldactone) 100 mg PO DAILY [facility] Physical Exam - Constitutional Appears: Non-toxic, No Acute Distress - Eye Exam Eye Exam: Normal appearance - ENT Exam ENT Exam: Mucous Membranes Dry - Respiratory Exam Respiratory Exam: Clear to Auscultation Bilateral, NORMAL BREATHING PATTERN - Cardiovascular Exam Cardiovascular Exam: REGULAR RHYTHM, +S1, +S2 - GI/Abdominal Exam GI & Abdominal Exam: Normal Bowel Sounds, Organomegaly (splenomegaly), Soft, Tenderness (mild tender to palpation of the spleen, no rebound tenderness, no rigidity or guarding noted). absent: Distended, Rebound, Rigid - Extremities Exam Extremities exam: Positive for: normal inspection. Negative for: calf tenderness, pedal edema - Neurological Exam Neurological exam: Alert, CN II-XII Intact, Oriented x3 - Skin Skin Exam: Dry, Intact, Pallor Results - Vital Signs Recent Vital Signs: Last Vital Signs Temp 98.8 F 07/13/17 08:50 Pulse 89 07/13/17 08:50 Resp 20 07/13/17 08:50 BP 103/62 07/13/17 08:53 Pulse Ox 97 07/13/17 08:50 - Labs Result Diagrams: 07/13/17 05:45 07/13/17 05:45 Labs: Laboratory Results - last 24 hr 07/12/17 07/12/17 07/12/17 02:08 14:35 18:43 WBC RBC Hgb Hct MCV MCH MCHC RDW Plt Count Manual Plt Count 12 L* MPV Neut % (Auto) Lymph % (Auto) [place] % (Auto) Eos % (Auto) Baso % (Auto) Neut # Lymph # [place] # Eos # Baso # Sodium Potassium Chloride Carbon Dioxide Anion Gap BUN Creatinine Est GFR ( Amer) Est GFR (Non-Af Amer) POC Glucose (mg/dL) 180 H Random Glucose Calcium Ammonia Alpha Fetoprotein Influenza Typ A,B (EIA) Negative for flu a/b Blood Type Antibody Screen BBK History Checked 07/13/17 07/13/17 07/13/17 05:45 05:45 05:45 WBC 3.5 L RBC 2.70 L Hgb 8.8 L Hct 25.6 L MCV 94.8 MCH 32.5 H MCHC 34.3 RDW 16.8 H Plt Count 13 L* Manual Plt Count MPV 9.8 Neut % (Auto) 81.2 H Lymph % (Auto) 6.9 L [place] % (Auto) 11.1 H Eos % (Auto) 0.5 Baso % (Auto) 0.3 Neut # 2.8 Lymph # 0.2 L [place] # 0.4 Eos # 0.0 Baso # 0.0 Sodium 131 L Potassium 3.8 Chloride 109 H Carbon Dioxide 18 L Anion Gap 8 L BUN 15 Creatinine 0.6 L Est GFR ( Amer) > 60 Est GFR (Non-Af Amer) > 60 POC Glucose (mg/dL) Random Glucose 84 Calcium 7.5 L Ammonia Alpha Fetoprotein 2.0 Influenza Typ A,B (EIA) Blood Type Antibody Screen BBK History Checked 07/13/17 07/13/17 05:45 05:45 WBC RBC Hgb Hct MCV MCH MCHC RDW Plt Count Manual Plt Count MPV Neut % (Auto) Lymph % (Auto) [place] % (Auto) Eos % (Auto) Baso % (Auto) Neut # Lymph # [place] # Eos # Baso # Sodium Potassium Chloride Carbon Dioxide Anion Gap BUN Creatinine Est GFR ( Amer) Est GFR (Non-Af Amer) POC Glucose (mg/dL) Random Glucose Calcium Ammonia 40 D Alpha Fetoprotein Influenza Typ A,B (EIA) Blood Type A POSITIVE Antibody Screen Negative BBK History Checked Patient has bt Assessment & Plan - Assessment and Plan (Free Text) Assessment: 31 y/o female with PMHx no alcoholic Liver Cirrhosis of unknown etiology, chronic anemia and thrombocytopenia being admitted for severe thrombocytopenia and pancytopenia of unknown etiology. Plan: Plan: -Platelet Transfusion once -Type and screen -check Vitamin B 12 levels -PT evaluation is recommended -Pt states that she would like to go back to her regular doctor and hospital for further work up and medical management. - Date & Time Date: 07/13/17 Time: 09:35
--- NOTE | 2017-07-13 13:34 | RAD ---
HISTORY: Fever. COMPARISON: 05/01/2015 TECHNIQUE: Chest PA and lateral FINDINGS: LUNGS: No active pulmonary disease. PLEURA: No significant pleural effusion identified. No pneumothorax apparent. CARDIOVASCULAR: Normal. OSSEOUS STRUCTURES: No significant abnormalities. VISUALIZED UPPER ABDOMEN: The stomach is markedly distended with a large air-fluid level. OTHER FINDINGS: None. IMPRESSION: No active disease. No significant interval change compared to the prior examination(s).
[2017-07-13] MEDS: Acyclovir 5% OINT 15 APPLIC/15 GM EXT SCH ×2 (19:35→21:47)
--- NOTE | 2017-07-13 20:24 | CP.PCM.CON ---
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 She states she recently stopped lactulose due to taste. She denies fever, chills or abdominal pain Review of Systems - Constitutional Constitutional: absent: Chills - EENT Eyes: absent: Blurred Vision Ears: absent: Decreased Hearing Nose/Mouth/Throat: absent: Epistaxis - Cardiovascular Cardiovascular: absent: Chest Pain - Respiratory Respiratory: absent: Dyspnea - Gastrointestinal Gastrointestinal: absent: Abdominal Pain - Genitourinary Genitourinary: absent: Change in Urinary Stream Past Patient History - Infectious Disease Hx of Infectious Diseases: None - Past Medical History & Family History Past Medical History?: Yes - Past Social History Smoking Status: Never Smoked - CARDIAC Hx Cardiac Disorders: No - PULMONARY Hx Respiratory Disorders: No - NEUROLOGICAL Hx Neurological Disorder: Yes - HEENT Hx HEENT Problems: No - RENAL Hx Chronic Kidney Disease: No - ENDOCRINE/METABOLIC Hx Endocrine Disorders: No - HEMATOLOGICAL/ONCOLOGICAL Hx Anemia: Yes Hx Blood Transfusions: Yes Hx Blood Transfusion Reaction: No Hx Bruising: Yes Hx Cirrhosis: Yes Hx Human Immunodeficiency Virus (HIV): No - INTEGUMENTARY Hx Dermatological Problems: Yes - MUSCULOSKELETAL/RHEUMATOLOGICAL Hx Musculoskeletal Disorders: No - GASTROINTESTINAL Hx Gastrointestinal Disorders: Yes Other/Comment: Umbilical Hernia - GENITOURINARY/GYNECOLOGICAL Hx Genitourinary Disorders: No - PSYCHIATRIC Hx Psychophysiologic Disorder: No - SURGICAL HISTORY Hx Surgeries: No Hx Splenectomy: Yes Other/Comment: surgery head-4 mos ago - ANESTHESIA Hx Anesthesia: No Hx Anesthesia Reactions: Yes Hx Malignant Hyperthermia: No Meds Allergies/Adverse Reactions: Allergies Allergy/AdvReac Type Severity Reaction Status Date / Time Seafood Allergy RASH Uncoded 09/02/15 06:26 - Medications Medications: Current Medications Acyclovir (Zovirax 5% Oint) 1 applic EXT Q3 [facility] Last Admin: 07/13/17 19:35 Dose: 1 applic Folic Acid (Folic Acid) 1 mg PO DAILY [facility] Last Admin: 07/13/17 08:54 Dose: 1 mg Furosemide (Lasix) 40 mg PO DAILY [facility] Last Admin: 07/13/17 08:53 Dose: 40 mg Home Med (Calcium Carbonate/Vitamin D3 [Calcium 1,000 + D3 Caplet]) 2 tab PO DAILY [facility] Last Admin: 07/13/17 08:54 Dose: 2 tab Ciprofloxacin (Cipro 200mg/100ml D5w) 100 mls @ 100 mls/hr IVPB Q12 [facility] Last Admin: 07/13/17 08:55 Dose: 100 mls/hr Lactulose (Enulose) 10 gm PO DAILY PRN PRN Reason: Constipation Last Admin: 07/12/17 08:59 Dose: 10 gm Levetiracetam (Keppra) 500 mg PO DAILY [facility] Last Admin: 07/13/17 11:16 Dose: 500 mg Magnesium Oxide (Mag-Ox) 400 mg PO BID [facility] Last Admin: 07/13/17 17:26 Dose: 400 mg Midodrine (Proamatine) 10 mg PO ONCE [facility] Last Admin: 07/13/17 11:17 Dose: 10 mg Ondansetron HCl (Zofran Inj) 4 mg IVP Q6 PRN PRN Reason: Nausea/Vomiting Last Admin: 07/12/17 14:18 Dose: 4 mg Pantoprazole Sodium (Protonix Ec Tab) 40 mg PO DAILY [facility] Last Admin: 07/13/17 08:53 Dose: 40 mg Phytonadione (Vitamin K Tab) 5 mg PO ONCE [facility] Last Admin: 07/13/17 11:18 Dose: 5 mg Rifaximin (Xifaxan) 550 mg PO BID [facility] PRN Reason: Protocol Last Admin: 07/13/17 17:25 Dose: 550 mg Spironolactone (Aldactone) 100 mg PO DAILY [facility] Last Admin: 07/13/17 11:17 Dose: 100 mg Physical Exam - Constitutional Appears: Older Than Stated Age - Head Exam Head Exam: ATRAUMATIC - Eye Exam Eye Exam: Normal appearance - ENT Exam ENT Exam: Normal Exam - Neck Exam Neck exam: Positive for: Full Rom - Respiratory Exam Respiratory Exam: Clear to Auscultation Bilateral - Cardiovascular Exam Cardiovascular Exam: REGULAR RHYTHM, +S1, +S2 - GI/Abdominal Exam GI & Abdominal Exam: Distended, Normal Bowel Sounds. absent: Tenderness - Rectal Exam Rectal Exam: Deferred Results - Vital Signs Recent Vital Signs: Last Vital Signs Temp 98.7 F 07/13/17 16:16 Pulse 92 H 07/13/17 16:16 Resp 20 07/13/17 16:16 BP 102/64 07/13/17 16:16 Pulse Ox 92 L 07/13/17 16:16 - Labs Result Diagrams: 07/13/17 05:45 07/13/17 05:45 Labs: Laboratory Results - last 24 hr 07/12/17 07/13/17 07/13/17 02:08 05:45 05:45 WBC 3.5 L RBC 2.70 L Hgb 8.8 L Hct 25.6 L MCV 94.8 MCH 32.5 H MCHC 34.3 RDW 16.8 H Plt Count 13 L* MPV 9.8 Neut % (Auto) 81.2 H Lymph % (Auto) 6.9 L [place] % (Auto) 11.1 H Eos % (Auto) 0.5 Baso % (Auto) 0.3 Neut # 2.8 Lymph # 0.2 L [place] # 0.4 Eos # 0.0 Baso # 0.0 Sodium Potassium Chloride Carbon Dioxide Anion Gap BUN Creatinine Est GFR ( Amer) Est GFR (Non-Af Amer) POC Glucose (mg/dL) 180 H Random Glucose Calcium Ammonia Alpha Fetoprotein 2.0 Vitamin B12 Blood Type Antibody Screen BBK History Checked 07/13/17 07/13/17 07/13/17 05:45 05:45 05:45 WBC RBC Hgb Hct MCV MCH MCHC RDW Plt Count MPV Neut % (Auto) Lymph % (Auto) [place] % (Auto) Eos % (Auto) Baso % (Auto) Neut # Lymph # [place] # Eos # Baso # Sodium 131 L Potassium 3.8 Chloride 109 H Carbon Dioxide 18 L Anion Gap 8 L BUN 15 Creatinine 0.6 L Est GFR ( Amer) > 60 Est GFR (Non-Af Amer) > 60 POC Glucose (mg/dL) Random Glucose 84 Calcium 7.5 L Ammonia 40 D Alpha Fetoprotein Vitamin B12 Blood Type A POSITIVE Antibody Screen Negative BBK History Checked Patient has bt 07/13/17 10:29 WBC RBC Hgb Hct MCV MCH MCHC RDW Plt Count MPV Neut % (Auto) Lymph % (Auto) [place] % (Auto) Eos % (Auto) Baso % (Auto) Neut # Lymph # [place] # Eos # Baso # Sodium Potassium Chloride Carbon Dioxide Anion Gap BUN Creatinine Est GFR ( Amer) Est GFR (Non-Af Amer) POC Glucose (mg/dL) Random Glucose Calcium Ammonia Alpha Fetoprotein Vitamin B12 902 Blood Type Antibody Screen BBK History Checked - Imaging and Cardiology CT scan - abdomen Status: Report reviewed by me Assessment & Plan (1) Abdominal discomfort Assessment and Plan: Clinically stable .CT read as c/w colitis though thickening of bowel wall often present in patients with hypoalbuminemia. Lactulose has been restarted and ammonia level has improved . Continued management as outpatient by hepatologists at [facility]. Status: Acute (2) Abdominal pain Status: Acute Onset Date: 08/21/15
[2017-07-14] MEDS: Acyclovir 5% OINT 15 APPLIC/15 GM EXT SCH ×8 (01:07→22:31)
[2017-07-14] MEDS ORDERED: HYDROmorphone 0.5 mg/0.5 ml ISec IVP ONE (03:33)
[2017-07-14 06:48] LABS: HEMATOCRIT 21.9 % (34.0-47.0); MEAN CELL VOLUME 93.2 fl (81.0-99.0); MEAN CORPUSCULAR HEMOGLOBIN 32.4 pg (27.0-31.0); MEAN CORPUSCULAR HGB CONC 34.7 g/dL (33.0-37.0); RED CELL DISTRIBUTION WIDTH 16.1 % (11.5-14.5)
[2017-07-14 07:07] LABS: WHITE BLOOD COUNT 1.4 K/uL (4.8-10.8)
[2017-07-14] MEDS: Pantoprazole 40 mg EC Tab PO SCH (08:24)
[2017-07-14] MEDS: Magnesium Oxide 400 mg Tab UD PO SCH ×2 (08:24→16:28)
[2017-07-14] MEDS: Ciprofloxacin 200mg/100ml D5W 100 ML IVPB SCH (08:31)
[2017-07-14 08:44] LABS: EOSINOPHIL 1 % (0-7); NEUTROPHIL 85 % (42-75); TOTAL CELLS COUNTED 100
--- NOTE | 2017-07-14 10:23 | CP.PCM.PN ---
Subjective - Date & Time of Evaluation Date of Evaluation: 07/14/17 Time of Evaluation: 10:20 - Subjective Subjective: P5t has no complaints. she received 1 unit of platelets yesterday. Today her WBC is 1.4, hgb 7.8gm and platelets 15K. Will repeat her cbc,and if the count is correct will give her a unit of packed cells. Objective - Vital Signs/Intake and Output Vital Signs (last 24 hours): Temp Pulse Resp BP Pulse Ox 98.2 F 82 20 92/56 L 98 07/14/17 08:08 07/14/17 08:08 07/14/17 08:08 07/14/17 08:08 07/14/17 08:08 - Medications Medications: Current Medications Acyclovir (Zovirax 5% Oint) 1 applic EXT Q3 [facility] Last Admin: 07/14/17 06:13 Dose: 1 applic Folic Acid (Folic Acid) 1 mg PO DAILY [facility] Last Admin: 07/14/17 08:27 Dose: 1 mg Furosemide (Lasix) 40 mg PO DAILY [facility] Last Admin: 07/14/17 08:24 Dose: Not Given Home Med (Calcium Carbonate/Vitamin D3 [Calcium 1,000 + D3 Caplet]) 2 tab PO DAILY [facility] Last Admin: 07/13/17 08:54 Dose: 2 tab Ciprofloxacin (Cipro 200mg/100ml D5w) 100 mls @ 100 mls/hr IVPB Q12 [facility] Last Admin: 07/14/17 08:31 Dose: 100 mls/hr Lactulose (Enulose) 10 gm PO DAILY PRN PRN Reason: Constipation Last Admin: 07/12/17 08:59 Dose: 10 gm Levetiracetam (Keppra) 500 mg PO DAILY [facility] Last Admin: 07/14/17 08:28 Dose: 500 mg Magnesium Oxide (Mag-Ox) 400 mg PO BID [facility] Last Admin: 07/14/17 08:24 Dose: 400 mg Midodrine (Proamatine) 10 mg PO ONCE [facility] Last Admin: 07/13/17 11:17 Dose: 10 mg Nadolol (Corgard) 20 mg PO DAILY [facility] Ondansetron HCl (Zofran Inj) 4 mg IVP Q6 PRN PRN Reason: Nausea/Vomiting Last Admin: 07/12/17 14:18 Dose: 4 mg Pantoprazole Sodium (Protonix Ec Tab) 40 mg PO DAILY [facility] Last Admin: 07/14/17 08:24 Dose: 40 mg Phytonadione (Vitamin K Tab) 5 mg PO ONCE [facility] Last Admin: 07/13/17 11:18 Dose: 5 mg Rifaximin (Xifaxan) 550 mg PO BID [facility] PRN Reason: Protocol Last Admin: 07/14/17 08:23 Dose: 550 mg Spironolactone (Aldactone) 100 mg PO DAILY [facility] Last Admin: 07/14/17 08:26 Dose: Not Given - Labs Labs: 07/14/17 06:20 07/13/17 05:45 PT 21.5 Seconds (9.8-13.1) H 07/12/17 04:44 INR 1.9 (0.9-1.2) H 07/12/17 04:44 APTT 45.4 Seconds (25.6-37.1) H 07/12/17 04:44
[2017-07-14 12:18] LABS: BASO % 0.5 % (0.0-2.0); EOS % 1.7 % (0.0-4.0); HEMATOCRIT 23.3 % (34.0-47.0); LYMPH # 0.2 K/uL (1.0-4.3); LYMPH % 12.8 % (20.0-40.0); MEAN CELL VOLUME 94.7 fl (81.0-99.0); MEAN CORPUSCULAR HGB CONC 33.8 g/dL (33.0-37.0); MONO # 0.2 K/uL (0.0-0.8); MONO % 12.7 % (0.0-10.0); NEUT # 1.2 K/uL (1.8-7.0); NEUT % 72.3 % (50.0-75.0); NRBC % 0.2 % (0.0-0.0); RED CELL DISTRIBUTION WIDTH 16.5 % (11.5-14.5)
[2017-07-14 12:22] LABS: WHITE BLOOD COUNT 1.6 K/uL (4.8-10.8)
[2017-07-14] MEDS: CALCIUM CARBONATE 1200 MG PO SCH (12:33)
[2017-07-14] MEDS: CHOLECALCIFEROL 1000 UNIT PO SCH (12:33)
--- NOTE | 2017-07-14 13:49 | CP.PCM.PN ---
<Alejandro Quintana - Last Filed: 07/14/17 13:46> Subjective - Date & Time of Evaluation Date of Evaluation: 07/14/17 Time of Evaluation: 13:46 - Subjective Subjective: GI Pt s&e. NAEON. Denies F/C/N/V/D/CP/SOB/weakness.+ amb. + BM. Tolerating diet. Objective - Vital Signs/Intake and Output Vital Signs (last 24 hours): Temp Pulse Resp BP Pulse Ox 98.2 F 82 20 92/56 L 98 07/14/17 08:08 07/14/17 08:08 07/14/17 08:08 07/14/17 08:08 07/14/17 08:08 - Medications Medications: Current Medications Acyclovir (Zovirax 5% Oint) 1 applic EXT Q3 [facility] Last Admin: 07/14/17 12:33 Dose: 1 applic Folic Acid (Folic Acid) 1 mg PO DAILY [facility] Last Admin: 07/14/17 08:27 Dose: 1 mg Furosemide (Lasix) 40 mg PO DAILY [facility] Last Admin: 07/14/17 08:24 Dose: Not Given Home Med (Calcium Carbonate/Vitamin D3 [Calcium 1,000 + D3 Caplet]) 2 tab PO DAILY [facility] Last Admin: 07/14/17 12:33 Dose: 2 tab Ciprofloxacin (Cipro 400mg/200ml Dsw) 400 mg in 200 mls @ 200 mls/hr IVPB Q12 [facility] PRN Reason: Protocol Lactulose (Enulose) 10 gm PO DAILY PRN PRN Reason: Constipation Last Admin: 07/12/17 08:59 Dose: 10 gm Levetiracetam (Keppra) 500 mg PO DAILY [facility] Last Admin: 07/14/17 08:28 Dose: 500 mg Magnesium Oxide (Mag-Ox) 400 mg PO BID [facility] Last Admin: 07/14/17 08:24 Dose: 400 mg Midodrine (Proamatine) 10 mg PO ONCE [facility] Last Admin: 07/13/17 11:17 Dose: 10 mg Nadolol (Corgard) 20 mg PO DAILY [facility] Last Admin: 07/14/17 11:03 Dose: Not Given Ondansetron HCl (Zofran Inj) 4 mg IVP Q6 PRN PRN Reason: Nausea/Vomiting Last Admin: 07/12/17 14:18 Dose: 4 mg Pantoprazole Sodium (Protonix Ec Tab) 40 mg PO DAILY [facility] Last Admin: 07/14/17 08:24 Dose: 40 mg Rifaximin (Xifaxan) 550 mg PO BID [facility] PRN Reason: Protocol Last Admin: 07/14/17 08:23 Dose: 550 mg Spironolactone (Aldactone) 100 mg PO DAILY [facility] Last Admin: 07/14/17 08:26 Dose: Not Given - Labs Labs: 07/14/17 12:01 07/13/17 05:45 PT 21.5 Seconds (9.8-13.1) H 07/12/17 04:44 INR 1.9 (0.9-1.2) H 07/12/17 04:44 APTT 45.4 Seconds (25.6-37.1) H 07/12/17 04:44 - Constitutional Appears: No Acute Distress - Head Exam Head Exam: ATRAUMATIC, NORMAL INSPECTION, NORMOCEPHALIC - Eye Exam Eye Exam: EOMI, Normal appearance, PERRL Pupil Exam: NORMAL ACCOMODATION, PERRL - ENT Exam ENT Exam: Mucous Membranes Moist, Normal Exam - Neck Exam Neck Exam: Full ROM, Normal Inspection. absent: Lymphadenopathy - Respiratory Exam Respiratory Exam: Clear to Ausculation Bilateral, NORMAL BREATHING PATTERN - Cardiovascular Exam Cardiovascular Exam: REGULAR RHYTHM, +S1, +S2. absent: Murmur - GI/Abdominal Exam GI & Abdominal Exam: Distended, Soft, Normal Bowel Sounds. absent: Firm, Guarding, Rigid, Tenderness - Extremities Exam Extremities Exam: Full ROM, Normal Capillary Refill, Normal Inspection. absent : Joint Swelling, Pedal Edema - Back Exam Back Exam: NORMAL INSPECTION - Neurological Exam Neurological Exam: Alert, Awake, CN II-XII Intact, Normal Gait, Oriented x3 - Psychiatric Exam Psychiatric exam: Normal Affect, Normal Mood - Skin Skin Exam: Dry, Intact, Normal Color, Warm Assessment and Plan - Assessment and Plan (Free Text) Assessment: Colitis, Cirrhosis : Improved CT read as c/w colitis though thickening of bowel wall often present in patients with hypoalbuminemia. Lactulose has been restarted and ammonia level has improved . -Continue Lactulose -Medical management -Continued management as outpatient by hepatologists at [facility]. Will MARCELINA Betancourt <Haja Betancourt - Last Filed: 07/14/17 17:45> Objective - Vital Signs/Intake and Output Vital Signs (last 24 hours): Temp Pulse Resp BP Pulse Ox 97.8 F 107 H 20 103/62 99 07/14/17 16:30 07/14/17 16:30 07/14/17 16:30 07/14/17 16:30 07/14/17 16:30 - Medications Medications: Current Medications Acyclovir (Zovirax 5% Oint) 1 applic EXT Q3 [facility] Last Admin: 07/14/17 16:28 Dose: 1 applic Folic Acid (Folic Acid) 1 mg PO DAILY [facility] Last Admin: 07/14/17 08:27 Dose: 1 mg Furosemide (Lasix) 40 mg PO DAILY [facility] Last Admin: 07/14/17 08:24 Dose: Not Given Home Med (Calcium Carbonate/Vitamin D3 [Calcium 1,000 + D3 Caplet]) 2 tab PO DAILY [facility] Last Admin: 07/14/17 12:33 Dose: 2 tab Ciprofloxacin (Cipro 400mg/200ml Dsw) 400 mg in 200 mls @ 200 mls/hr IVPB Q12 [facility] PRN Reason: Protocol Lactulose (Enulose) 10 gm PO DAILY PRN PRN Reason: Constipation Last Admin: 07/12/17 08:59 Dose: 10 gm Levetiracetam (Keppra) 500 mg PO DAILY [facility] Last Admin: 07/14/17 08:28 Dose: 500 mg Magnesium Oxide (Mag-Ox) 400 mg PO BID [facility] Last Admin: 07/14/17 16:28 Dose: 400 mg Midodrine (Proamatine) 10 mg PO ONCE [facility] Last Admin: 07/13/17 11:17 Dose: 10 mg Nadolol (Corgard) 20 mg PO DAILY [facility] Last Admin: 07/14/17 11:03 Dose: Not Given Ondansetron HCl (Zofran Inj) 4 mg IVP Q6 PRN PRN Reason: Nausea/Vomiting Last Admin: 07/12/17 14:18 Dose: 4 mg Pantoprazole Sodium (Protonix Ec Tab) 40 mg PO DAILY [facility] Last Admin: 07/14/17 08:24 Dose: 40 mg Rifaximin (Xifaxan) 550 mg PO BID [facility] PRN Reason: Protocol Last Admin: 07/14/17 16:28 Dose: 550 mg Spironolactone (Aldactone) 100 mg PO DAILY [facility] Last Admin: 07/14/17 08:26 Dose: Not Given - Labs Labs: 07/14/17 12:01 07/13/17 05:45 PT 21.5 Seconds (9.8-13.1) H 07/12/17 04:44 INR 1.9 (0.9-1.2) H 07/12/17 04:44 APTT 45.4 Seconds (25.6-37.1) H 07/12/17 04:44 Assessment and Plan (1) Abdominal discomfort Status: Acute (2) Abdominal pain Status: Acute - Assessment and Plan (Free Text) Assessment: Agree with above. Clinically better
--- NOTE | 2017-07-14 14:31 | CP.PCM.PN ---
Subjective - Date & Time of Evaluation Date of Evaluation: 07/14/17 Time of Evaluation: 07:20 - Subjective Subjective: Pt seen and examined at bedside this morning. Pt reports she is feeling significantly better. Pt reports she had one episode of spontaneous epistaxis last night which resloved with applying pressure. Denies nausea, vomiting, abdominal pain, headache or dizziness. Tolerating PO intake. Denies dysuria, hematochezia, melena, BRBPR, chest pain,dyspnea, calf pain, fever or chills. Objective - Vital Signs/Intake and Output Vital Signs (last 24 hours): Temp Pulse Resp BP Pulse Ox 98.2 F 82 20 92/56 L 98 07/14/17 08:08 07/14/17 08:08 07/14/17 08:08 07/14/17 08:08 07/14/17 08:08 - Medications Medications: Current Medications Acyclovir (Zovirax 5% Oint) 1 applic EXT Q3 [facility] Last Admin: 07/14/17 12:33 Dose: 1 applic Folic Acid (Folic Acid) 1 mg PO DAILY [facility] Last Admin: 07/14/17 08:27 Dose: 1 mg Furosemide (Lasix) 40 mg PO DAILY [facility] Last Admin: 07/14/17 08:24 Dose: Not Given Home Med (Calcium Carbonate/Vitamin D3 [Calcium 1,000 + D3 Caplet]) 2 tab PO DAILY [facility]ON[facility] Last Admin: 07/14/17 12:33 Dose: 2 tab Ciprofloxacin (Cipro 400mg/200ml Dsw) 400 mg in 200 mls @ 200 mls/hr IVPB Q12 [facility] PRN Reason: Protocol Lactulose (Enulose) 10 gm PO DAILY PRN PRN Reason: Constipation Last Admin: 07/12/17 08:59 Dose: 10 gm Levetiracetam (Keppra) 500 mg PO DAILY [facility] Last Admin: 07/14/17 08:28 Dose: 500 mg Magnesium Oxide (Mag-Ox) 400 mg PO BID [facility] Last Admin: 07/14/17 08:24 Dose: 400 mg Midodrine (Proamatine) 10 mg PO ONCE [facility] Last Admin: 07/13/17 11:17 Dose: 10 mg Nadolol (Corgard) 20 mg PO DAILY [facility] Last Admin: 07/14/17 11:03 Dose: Not Given Ondansetron HCl (Zofran Inj) 4 mg IVP Q6 PRN PRN Reason: Nausea/Vomiting Last Admin: 07/12/17 14:18 Dose: 4 mg Pantoprazole Sodium (Protonix Ec Tab) 40 mg PO DAILY [facility] Last Admin: 07/14/17 08:24 Dose: 40 mg Rifaximin (Xifaxan) 550 mg PO BID [facility] PRN Reason: Protocol Last Admin: 07/14/17 08:23 Dose: 550 mg Spironolactone (Aldactone) 100 mg PO DAILY [facility] Last Admin: 07/14/17 08:26 Dose: Not Given - Labs Labs: 07/14/17 12:01 07/13/17 05:45 PT 21.5 Seconds (9.8-13.1) H 07/12/17 04:44 INR 1.9 (0.9-1.2) H 07/12/17 04:44 APTT 45.4 Seconds (25.6-37.1) H 07/12/17 04:44 - Constitutional Appears: No Acute Distress, Older Than Stated Age - ENT Exam ENT Exam: Mucous Membranes Moist Additional comments: No active nose bleed seen. - Neck Exam Neck Exam: Full ROM, Normal Inspection - Respiratory Exam Respiratory Exam: Clear to Ausculation Bilateral. absent: Rales, Rhonchi, Wheezes - Cardiovascular Exam Cardiovascular Exam: REGULAR RHYTHM, RRR, +S1, +S2 - GI/Abdominal Exam GI & Abdominal Exam: Soft, Normal Bowel Sounds, Organomegaly (splenomegaly). absent: Tenderness - Neurological Exam Neurological Exam: Alert, Awake, Oriented x3 - Psychiatric Exam Psychiatric exam: Normal Affect, Normal Mood - Skin Skin Exam: Vesicles (small fluid filled vesicles on right lower lip. no vesicles on the forehead or eye area.). absent: Petechiae Assessment and Plan - Assessment and Plan (Free Text) Assessment: 31 y/o female with PMHx of liver failure and pancytopenia initially admitted for hyperammonemia, now has worsening pancytopenia and UTI. Plan: Acute on chronic pancytopenia -Hematology/oncology consult w/ Dr. Richmond appreciated. -CBC today shows worsening WBC of 1.6. -1 unit platelet transfused yesterday. -1 unit PRBC to be given today. -PT/INR/PTT (21.5/1.9/45.4) -will continue to monitor Urinary Tract Infection: -Urine cx shows gram negative rods ( >100,000 colonies) -Increase Cipro 500 mg IVP BID -F/U on urine sensitive -Afebrile last 24 hrs. Hyperammonemia with Liver Cirrhosis -Resolved. -Repeat ammonia level is 40 -Continue w/ Rifaximin 500mg PO BID -GI consulted Dr. Betancourt- recommendations appreciated -will call [facility] where her GI and PMD is located -[facility] Phone ([place]): [phone] Fever with Liver Cirrhosis -Fever resolved. -Empiric treatment for SBP. -Increased cipro to 500 mg IVP BID for UTI. -F/U on blood cx -Abdomen and pelvis CT: -Re-demonstration of advanced liver cirrhosis w/ severe portal HTN. -Marked splenomegaly and markedly dilated collateral vessels. -Ascending colon wall thickening highly suspicious of colitis. -Small to moderate ascites. -Umbilical hernia contains fluid. Herpes Simplex -Acyclovir 5% cream TID. DVT Prophylaxis: -SCDs -Platelets: 13 -Lovenox contraindicated Diet -Altered GI/hepatic diet: low protein. -Dietitian consulted- for screen- recommendations appreciated Status -Full Code Disposition: anticipate discharge to home tomorrow.
[2017-07-14 21:30] VITALS: RESP 20
[2017-07-14] MEDS: Ciprofloxacin 400mg/200ml D5W 400 MG/200 ML BAG IVPB SCH (21:45)
[2017-07-15] MEDS: Acyclovir 5% OINT 15 APPLIC/15 GM EXT SCH ×5 (00:04→13:01)
[2017-07-15 00:21] VITALS: O2SAT 99
[2017-07-15 07:09] LABS: HEMATOCRIT 25.5 % (34.0-47.0); MEAN CELL VOLUME 93.9 fl (81.0-99.0); MEAN CORPUSCULAR HEMOGLOBIN 31.3 pg (27.0-31.0); MEAN CORPUSCULAR HGB CONC 33.4 g/dL (33.0-37.0); RED CELL DISTRIBUTION WIDTH 16.6 % (11.5-14.5)
[2017-07-15 07:39] LABS: BLOOD UREA NITROGEN 8 mg/dl (7-17); CALCIUM 7.1 mg/dL (8.4-10.2); CARBON DIOXIDE 22 mmol/L (22-30); CHLORIDE 105 mmol/L (98-107); GFR AFRICAN-AMERICAN > 60; GLUCOSE,RANDOM 106 mg/dL (65-105); POTASSIUM 3.7 MMOL/L (3.6-5.0); SODIUM 130 mmol/l (132-148)
[2017-07-15 07:41] LABS: WHITE BLOOD COUNT 1.2 K/uL (4.8-10.8)
[2017-07-15] MEDS: CALCIUM CARBONATE 1200 MG PO SCH (08:42)
[2017-07-15] MEDS: Magnesium Oxide 400 mg Tab UD PO SCH (08:42)
[2017-07-15] MEDS: CHOLECALCIFEROL 1000 UNIT PO SCH (08:42)
[2017-07-15 08:43] VITALS: TEMP 98
[2017-07-15] MEDS: Ciprofloxacin 400mg/200ml D5W 400 MG/200 ML BAG IVPB SCH (08:44)
[2017-07-15] MEDS: Pantoprazole 40 mg EC Tab PO SCH (09:12)
[2017-07-15 09:18] VITALS: BP 106/64; PULSE 98
--- NOTE | 2017-07-15 10:28 | CP.PCM.PN ---
Subjective - Date & Time of Evaluation Date of Evaluation: 07/15/17 Time of Evaluation: 10:22 - Subjective Subjective: Pt's hgb today is 8.5gms. the wbc is still low, and platelets are still low at 15K. According to the pt she very often has counts that low. 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 She is afebrile , and no fever or bleeding from any site. Objective - Vital Signs/Intake and Output Vital Signs (last 24 hours): Temp Pulse Resp BP Pulse Ox 98 F 98 H 20 106/64 99 07/15/17 08:42 07/15/17 09:17 07/15/17 08:42 07/15/17 09:17 07/15/17 08:42 - Medications Medications: Current Medications Acyclovir (Zovirax 5% Oint) 1 applic EXT Q3 [facility] Last Admin: 07/15/17 06:37 Dose: 1 applic Folic Acid (Folic Acid) 1 mg PO DAILY [facility] Last Admin: 07/15/17 08:42 Dose: 1 mg Furosemide (Lasix) 40 mg PO DAILY [facility] Last Admin: 07/15/17 09:16 Dose: 40 mg Home Med (Calcium Carbonate/Vitamin D3 [Calcium 1,000 + D3 Caplet]) 2 tab PO DAILY [facility] Last Admin: 07/15/17 08:42 Dose: 2 tab Ciprofloxacin (Cipro 400mg/200ml Dsw) 400 mg in 200 mls @ 200 mls/hr IVPB Q12 [facility] PRN Reason: Protocol Last Admin: 07/15/17 08:44 Dose: 200 mls/hr Lactulose (Enulose) 10 gm PO DAILY PRN PRN Reason: Constipation Last Admin: 07/12/17 08:59 Dose: 10 gm Levetiracetam (Keppra) 500 mg PO DAILY [facility] Last Admin: 07/15/17 08:42 Dose: 500 mg Magnesium Oxide (Mag-Ox) 400 mg PO BID [facility] Last Admin: 07/15/17 08:42 Dose: 400 mg Midodrine (Proamatine) 10 mg PO ONCE [facility] Last Admin: 07/13/17 11:17 Dose: 10 mg Nadolol (Corgard) 20 mg PO DAILY [facility] Last Admin: 07/15/17 09:17 Dose: 20 mg Ondansetron HCl (Zofran Inj) 4 mg IVP Q6 PRN PRN Reason: Nausea/Vomiting Last Admin: 07/14/17 23:44 Dose: 4 mg Pantoprazole Sodium (Protonix Ec Tab) 40 mg PO DAILY [facility] Last Admin: 07/15/17 09:12 Dose: 40 mg Rifaximin (Xifaxan) 550 mg PO BID [facility]ONDA PRN Reason: Protocol Last Admin: 07/15/17 08:43 Dose: 550 mg Spironolactone (Aldactone) 100 mg PO DAILY [facility] Last Admin: 07/15/17 10:17 Dose: Not Given - Labs Labs: 07/15/17 06:15 07/15/17 06:15 PT 21.5 Seconds (9.8-13.1) H 07/12/17 04:44 INR 1.9 (0.9-1.2) H 07/12/17 04:44 APTT 45.4 Seconds (25.6-37.1) H 07/12/17 04:44
--- NOTE | 2017-07-15 11:18 | CP.PCM.PN ---
Subjective - Date & Time of Evaluation Date of Evaluation: 07/15/17 Time of Evaluation: 07:00 - Subjective Subjective: Overnight pt complained of pain and was given one dose of Dilaudid by RN. No other acute events overnight. This morning, pt was seen and evaluated at the bedside. Complains of feeling tired, naseua, and mild abdominal pain near the site of her umbilical hernia. Pt states she has been having BM and urinating normally. Denies dysuria, fever, chills, lightheadedness, dizziness, or palpitations. Objective - Vital Signs/Intake and Output Vital Signs (last 24 hours): Temp Pulse Resp BP Pulse Ox 98 F 98 H 20 106/64 99 07/15/17 08:42 07/15/17 09:17 07/15/17 08:42 07/15/17 09:17 07/15/17 08:42 - Medications Medications: Current Medications Acyclovir (Zovirax 5% Oint) 1 applic EXT Q3 [facility] Last Admin: 07/15/17 06:37 Dose: 1 applic Folic Acid (Folic Acid) 1 mg PO DAILY [facility] Last Admin: 07/15/17 08:42 Dose: 1 mg Furosemide (Lasix) 40 mg PO DAILY [facility] Last Admin: 07/15/17 09:16 Dose: 40 mg Home Med (Calcium Carbonate/Vitamin D3 [Calcium 1,000 + D3 Caplet]) 2 tab PO DAILY [facility] Last Admin: 07/15/17 08:42 Dose: 2 tab Ciprofloxacin (Cipro 400mg/200ml Dsw) 400 mg in 200 mls @ 200 mls/hr IVPB Q12 [facility] PRN Reason: Protocol Last Admin: 07/15/17 08:44 Dose: 200 mls/hr Lactulose (Enulose) 10 gm PO DAILY PRN PRN Reason: Constipation Last Admin: 07/12/17 08:59 Dose: 10 gm Levetiracetam (Keppra) 500 mg PO DAILY [facility] Last Admin: 07/15/17 08:42 Dose: 500 mg Magnesium Oxide (Mag-Ox) 400 mg PO BID [facility] Last Admin: 07/15/17 08:42 Dose: 400 mg Midodrine (Proamatine) 10 mg PO ONCE [facility] Last Admin: 07/13/17 11:17 Dose: 10 mg Nadolol (Corgard) 20 mg PO DAILY [facility] Last Admin: 07/15/17 09:17 Dose: 20 mg Ondansetron HCl (Zofran Inj) 4 mg IVP Q6 PRN PRN Reason: Nausea/Vomiting Last Admin: 07/14/17 23:44 Dose: 4 mg Pantoprazole Sodium (Protonix Ec Tab) 40 mg PO DAILY [facility] Last Admin: 07/15/17 09:12 Dose: 40 mg Rifaximin (Xifaxan) 550 mg PO BID [facility] PRN Reason: Protocol Last Admin: 07/15/17 08:43 Dose: 550 mg Spironolactone (Aldactone) 100 mg PO DAILY [facility] Last Admin: 07/15/17 10:17 Dose: Not Given - Labs Labs: 07/15/17 06:15 07/15/17 06:15 PT 21.5 Seconds (9.8-13.1) H 07/12/17 04:44 INR 1.9 (0.9-1.2) H 07/12/17 04:44 APTT 45.4 Seconds (25.6-37.1) H 07/12/17 04:44 - Constitutional Appears: Well, Non-toxic, No Acute Distress - Head Exam Head Exam: NORMAL INSPECTION - Eye Exam Eye Exam: EOMI. absent: Scleral icterus - ENT Exam ENT Exam: Mucous Membranes Moist - Respiratory Exam Respiratory Exam: Clear to Ausculation Bilateral. absent: Accessory Muscle Use , Rales, Wheezes - Cardiovascular Exam Cardiovascular Exam: REGULAR RHYTHM, +S1, +S2. absent: Murmur - GI/Abdominal Exam GI & Abdominal Exam: Soft, Tenderness (Tenderness to deep palpation over periumbilical region; non tender to soft. No suprapubic tenderness. No CVA tenderness). absent: Distended, Guarding, Rigid Additional comments: Bowel sounds present - Extremities Exam Extremities Exam: absent: Calf Tenderness, Pedal Edema - Back Exam Back Exam: absent: CVA tenderness (L), CVA tenderness (R) - Neurological Exam Neurological Exam: Alert, Awake, Oriented x3 - Psychiatric Exam Psychiatric exam: absent: Anxious Assessment and Plan - Assessment and Plan (Free Text) Assessment: 31 y/o female with a PMHX of Liver Cirrhosis of unknown etiology and pancytopenia admitted for hyperammonemia, now has worsening pancytopenia and UTI. Plan: Acute on chronic pancytopenia, Acute -WBC count trending down, 1.2 today. -Hematology/oncology on board- Seen by Dr. Richmond today; anticipating recommendations -1 unit platelet transfused yesterday. Hg 8.5 today. Stable. -PT/INR/PTT (21.5/1.9/45.4) Urinary Tract Infection, Acute -Pt denies dysuria, frequency, afebrile -Urine cx shows gram negative rods (>100,000 colonies): Grew Enterococcus bacteria sensitive to Ciprofloxin -Pt has been getting Ciprofloxin for 3 days, will continue for 7 days for a total of 10 days at home. Hyperammonemia with Liver Cirrhosis, Resolved -Resolved. Pt is more sleepy today but likely 2/2 to Dilaudid received overnight. -Repeat ammonia level is 40 -Continue w/ Rifaximin 500mg PO BID -GI consulted Dr. Betancourt- recommendations appreciated. -On discharge will continue with Lactulose -Dr. Tomas Keyes attempted to call [facility] where her GI and PMD is located multiple times with no answer. Pt states she has access to her MD's and has an appointment scheduled for next week. -[facility] Liver [facility] Phone ([place]): [phone] Fever with Liver Cirrhosis 2/2 to Spontaneous Bacterial Peritonitis, Resolving -Fever resolved. -Receiving Empiric treatment for SBP. -Blood Cx- no growth in 24 hrs -Abdomen and pelvis CT: Advanced liver cirrhosis w/ severe portal HTN, hepatosplenomegaly, moderate ascitis, umbilical hernia -Continue with ppx Cipro dose daily indefinitely on discharge. Will also need to start with a b-gina for esophageal varices ppx. Spoke with patient about the necessity of continuing these medications for prevention of life threatening conditions that she is at risk for. Pt verbalized understanding. Herpes Simplex -Acyclovir 5% cream TID. DVT Prophylaxis: -SCDs -Platelets: 13 -Lovenox contraindicated Diet -Altered GI/hepatic diet: low protein. -Dietitian consulted- for screen- recommendations appreciated Status -Full Code Disposition: anticipate discharge today
--- NOTE | 2017-07-15 15:16 | CP.PCM.DIS ---
Provider - Provider Date of Admission: 07/13/17 18:45 Attending physician: Greta Araya MD Time Spent in preparation of Discharge (in minutes): 30 Diagnosis - Discharge Diagnosis (1) UTI (urinary tract infection) Status: Resolved (2) Spontaneous bacterial peritonitis Status: Resolved Onset Date: 08/21/15 Hospital Course - Lab Results Lab Results: Micro Results 07/12/17 10:45 Blood-Venous Blood Culture - Preliminary NO GROWTH AFTER 3 DAYS 07/13/17 11:24 Urine,Clean Catch Urine Culture - Final Enterobacter Cloacae Ssp Cloac Most Recent Lab Values WBC 1.2 K/uL (4.8-10.8) L* 07/15/17 06:15 RBC 2.72 Mil/uL (3.80-5.20) L 07/15/17 06:15 Hgb 8.5 g/dL (12.0-16.0) L 07/15/17 06:15 Hct 25.5 % (34.0-47.0) L 07/15/17 06:15 MCV 93.9 fl (81.0-99.0) 07/15/17 06:15 MCH 31.3 pg (27.0-31.0) H 07/15/17 06:15 MCHC 33.4 g/dL (33.0-37.0) 07/15/17 06:15 RDW 16.6 % (11.5-14.5) H 07/15/17 06:15 Plt Count 15 K/uL (130-400) L* 07/15/17 06:15 Manual Plt Count 12 K/uL (130-400) L* 07/12/17 18:43 MPV 9.0 fl (7.2-11.7) 07/14/17 12:01 Neut % (Auto) 72.3 % (50.0-75.0) 07/14/17 12:01 Lymph % (Auto) 12.8 % (20.0-40.0) L 07/14/17 12:01 Fannin % (Auto) 12.7 % (0.0-10.0) H 07/14/17 12:01 Eos % (Auto) 1.7 % (0.0-4.0) 07/14/17 12:01 Baso % (Auto) 0.5 % (0.0-2.0) 07/14/17 12:01 Neut # 1.2 K/uL (1.8-7.0) L 07/14/17 12:01 Lymph # 0.2 K/uL (1.0-4.3) L 07/14/17 12:01 Fannin # 0.2 K/uL (0.0-0.8) 07/14/17 12:01 Eos # 0.0 K/uL (0.0-0.7) 07/14/17 12:01 Baso # 0.0 K/uL (0.0-0.2) 07/14/17 12:01 Neutrophils % (Manual) 85 % (42-75) H 07/14/17 07:20 Band Neutrophils % 1 % (0-2) 07/12/17 02:23 Lymphocytes % (Manual) 6 % (20-50) L 07/14/17 07:20 Monocytes % (Manual) 8 % (0-10) 07/14/17 07:20 Eosinophils % (Manual) 1 % (0-7) 07/14/17 07:20 Platelet Estimate Decreased (NORMAL) L 07/14/17 07:20 Hypochromasia (manual) Moderate 07/14/17 07:20 Poikilocytosis (manual Slight 07/12/17 02:23 Basophilic Stippling Slight 07/14/17 07:20 Anisocytosis (manual) Slight 07/14/17 07:20 Tear Drop Cells Slight 07/14/17 07:20 Ovalocytes Slight 07/14/17 07:20 Schistocytes Slight 07/14/17 07:20 PT 21.5 Seconds (9.8-13.1) H 07/12/17 04:44 INR 1.9 (0.9-1.2) H 07/12/17 04:44 APTT 45.4 Seconds (25.6-37.1) H 07/12/17 04:44 Sodium 130 mmol/l (132-148) L 07/15/17 06:15 Potassium 3.7 MMOL/L (3.6-5.0) 07/15/17 06:15 Chloride 105 mmol/L (98-107) 07/15/17 06:15 Carbon Dioxide 22 mmol/L (22-30) 07/15/17 06:15 Anion Gap 7 (10-20) L 07/15/17 06:15 BUN 8 mg/dl (7-17) 07/15/17 06:15 Creatinine 0.5 mg/dl (0.7-1.2) L 07/15/17 06:15 Est GFR ( Amer) > 60 07/15/17 06:15 Est GFR (Non-Af Amer) > 60 07/15/17 06:15 POC Glucose (mg/dL) 180 mg/dL (65-110) H 07/12/17 02:08 Random Glucose 106 mg/dL (65-105) H 07/15/17 06:15 Calcium 7.1 mg/dL (8.4-10.2) L 07/15/17 06:15 Total Bilirubin 2.9 mg/dl (0.2-1.3) H 07/12/17 02:23 AST 57 U/L (14-36) H 07/12/17 02:23 ALT 74 U/L (9-52) H D 07/12/17 02:23 Alkaline Phosphatase 121 U/L (38-126) 07/12/17 02:23 Ammonia 40 umo/L (11-51) D 07/13/17 05:45 Troponin I < 0.0120 ng/mL (0.00-0.120) 07/12/17 02:23 Total Protein 5.7 G/DL (6.3-8.2) L 07/12/17 02:23 Albumin 2.5 g/dL (3.5-5.0) L 07/12/17 02:23 Globulin 3.3 gm/dL (2.2-3.9) 07/12/17 02:23 Albumin/Globulin Ratio 0.8 (1.0-2.1) L 07/12/17 02:23 Alpha Fetoprotein 2.0 IU/mL (0.0-7.22) 07/13/17 05:45 Vitamin B12 902 pg/mL (239-931) 07/13/17 10:29 Urine Color Sri (YELLOW) 07/12/17 02:29 Urine Clarity Cloudy (Clear) 07/12/17 02:29 Urine pH 5.0 (5.0-8.0) 07/12/17 02:29 Ur Specific Irving 1.023 (1.003-1.030) 07/12/17 02:29 Urine Protein 30 mg/dL (NEGATIVE) 07/12/17 02:29 Urine Glucose (UA) Neg mg/dL (Normal) 07/12/17 02:29 Urine Ketones Negative mg/dL (NEGATIVE) 07/12/17 02:29 Urine Blood Large (NEGATIVE) 07/12/17 02:29 Urine Nitrate Negative (NEGATIVE) 07/12/17 02:29 Urine Bilirubin Negative (NEGATIVE) 07/12/17 02:29 Urine Urobilinogen 4.0 mg/dL (0.2-1.0) H 07/12/17 02:29 Ur Leukocyte Esterase Neg Oren/uL (Negative) 07/12/17 02:29 Urine RBC (Auto) 25 /hpf (0-3) H 07/12/17 02:29 Urine Microscopic WBC 5 /hpf (0-5) 07/12/17 02:29 Ur Squamous Epith Cells 1 /hpf (0-5) 07/12/17 02:29 Urine Bacteria Occ (<OCC) H 07/12/17 02:29 Urine Opiates Screen Negative (NEGATIVE) 07/12/17 02:29 Urine Methadone Screen Negative (NEGATIVE) 07/12/17 02:29 Ur Barbiturates Screen Negative (NEGATIVE) 07/12/17 02:29 Ur Phencyclidine Scrn Negative (NEGATIVE) 07/12/17 02:29 Ur Amphetamines Screen Negative (NEGATIVE) 07/12/17 02:29 U Benzodiazepines Scrn Negative (NEGATIVE) 07/12/17 02:29 U Oth Cocaine Metabols Negative (NEGATIVE) 07/12/17 02:29 U Cannabinoids Screen Negative (NEGATIVE) 07/12/17 02:29 Alcohol, Quantitative < 10 mg/dl (0-10) 07/12/17 02:23 Copper TNP 07/14/17 06:20 Influenza Typ A,B (EIA) Negative for flu a/b (NEGATIVE) 07/12/17 14:35 Blood Type A POSITIVE 07/13/17 05:45 Antibody Screen Negative 07/13/17 05:45 Crossmatch See Detail 07/13/17 05:45 BBK History Checked Patient has bt 07/13/17 05:45 - Hospital Course Hospital Course: Admission Date:07/13/17 Discharge Date: 07/15/17 Discharge Diagnosis: Spontaneous Bacterial Peritonitis UTI, complicated Hospital Course: Pt is a 31 y/o female with PMHx of Liver Cirrhosis of unknown etiology and chronic pancytopenia admitted to hospital for management of Hyperammonia due to medication non adherence, Spontaneous Bacterial Peritonitits , Anemia, and asymptomatic Urinary Tract Infection. She has been treated with ABX for her UTI and SBP, transfused 1 unit of PRBC, and restarted on Lactulose. ABX to be continued after discharge. Discharge Medications: Ciprofloxacin 500mg BID 7 days for treatment of UTI Ciprofloxacin 500mg PO daily for SBP ppx Furosemide 40mg PO daily Ondansetron 4mg q12 Propanolol 20mg PO BID Discharge Plan: Condition:Stable Activity:Ambulating Discharge Instruction: Follow up with PMD, GI, and Hematology OP for evaluation of chronic conditions. Discharge Exam - Head Exam Head Exam: NORMAL INSPECTION - Eye Exam Eye Exam: Normal appearance - ENT Exam ENT Exam: Mucous Membranes Moist - Respiratory Exam Respiratory Exam: NORMAL BREATHING PATTERN. absent: Accessory Muscle Use, Wheezes, Respiratory Distress - Cardiovascular Exam Cardiovascular Exam: REGULAR RHYTHM, +S1, +S2. absent: JVD, Systolic Murmur - GI/Abdominal Exam GI & Abdominal Exam: Normal Bowel Sounds, Soft. absent: Distended, Guarding Discharge Plan - Discharge Medications Prescriptions: Ciprofloxacin [Cipro] 500 mg PO BID 7 Days #14 tab Ciprofloxacin [Cipro] 500 mg PO DAILY #30 tab Furosemide [Lasix] 40 mg PO DAILY #30 tablet Furosemide [Lasix] 40 mg PO DAILY 30 Days tab Ondansetron HCl [Zofran] 4 mg PO Q12 PRN #20 tablet PRN Reason: Nausea/Vomiting Propranolol [Inderal] 20 mg PO BID #60 tab - Follow Up Plan Condition: STABLE Disposition: HOME/ ROUTINE Instructions: Thrombocytopenia (DC) Additional Instructions: hacer savanah en la clinica dentro de 7-10 lewis Referrals: [facility] [place] [Outside]
== END 2017-07-15 13:47 | disposition home or self-care (01) | DRG 895 ==
LOC: H.ER 01:26 → H.ERHOLD 03:20 → H.MEDSURG1 04:53 → OBSVTOIN 07-13 18:45
PROVIDERS: ADMIT Family Medicine Geriatric Medicine; ATTEND Family Medicine Geriatric Medicine
PROC: 30233N1 Transfusion of Nonautologous Red Blood Cells into Peripheral Vein, Percutaneous Approach (ICD-10-PCS; principal; 2017-07-13)
PROC: 30233R1 Transfusion of Nonautologous Platelets into Peripheral Vein, Percutaneous Approach (ICD-10-PCS; 2017-07-13)
DX: K65.2 Spontaneous bacterial peritonitis (principal); D61.818 Other pancytopenia; Z76.82 Awaiting organ transplant status; D69.59 Other secondary thrombocytopenia; R18.8 Other ascites; E88.09 Other disorders of plasma-protein metabolism, not elsewhere classified; K76.6 Portal hypertension; N39.0 Urinary tract infection, site not specified; K74.69 Other cirrhosis of liver; B00.9 Herpesviral infection, unspecified; B95.2 Enterococcus as the cause of diseases classified elsewhere; Z16.29 Resistance to other single specified antibiotic; D64.9 Anemia, unspecified; K42.9 Umbilical hernia without obstruction or gangrene; R04.0 Epistaxis; K59.00 Constipation, unspecified; Z91.14 Patient's other noncompliance with medication regimen; Z91.013 Allergy to seafood; Z90.81 Acquired absence of spleen

== ENCOUNTER 2017-07-31 23:46 | Inpatient (IN) | payer OTHER ==
[2017-08-01] MEDS ORDERED: Morphine 4 MG/ML VIAL IVP ONE (01:19)
[2017-08-01] MEDS ORDERED: Sodium Chloride 0.9% 1,000 ML IV STA (01:20)
--- NOTE | 2017-08-01 01:33 | ED PDOC ---
HPI: Abdomen Time Seen by Provider: 07/31/17 23:56 Chief Complaint (Nursing): Abdominal Pain Chief Complaint (Provider): Abdominal Pain History Per: Patient History/Exam Limitations: no limitations Onset/Duration Of Symptoms: Days (x2) Outside of [place] travel?: No Current Symptoms Are (Timing): Still Present Associated Symptoms: Chills, Nausea, Vomiting. denies: Chest Pain Additional Complaint(s): 31 year old female presents to ED with complaints of abdominal pain x2 days and has a past medical history of idiopathic liver cirrhosis and is on a transplant list. (+) abdominal distension, chills, nausea, vomiting x2 episodes (non-bloody , non-bilious). (-) chest pain, cough, or SOB. Patient is unaware if she has a fever. PCP: Rani Past Medical History Reviewed: Historical Data, Nursing Documentation, Vital Signs Vital Signs: Last Vital Signs Temp 98.3 F 08/01/17 06:15 Pulse 107 H 08/01/17 06:15 Resp 18 08/01/17 06:15 BP 125/84 08/01/17 06:38 Pulse Ox 99 08/01/17 06:15 - Medical History PMH: Anemia Denies: HIV, Chronic Kidney Disease Other PMH: liver cirrhosis - Surgical History Surgical History: No Surg Hx - Family History Family History: States: No Known Family Hx - Social History Current smoker - smoking cessation education provided: No Ex-Smoker (has not smoked in the last 12 months): No Alcohol: None Drugs: Denies - Home Medications Home Medications: Ambulatory Orders Medication Instructions Recorded Folic Acid 1 tab PO DAILY 07/12/17 Midodrine HCl 5 mg PO TID 07/12/17 Zinc Gluconate [Zinc] 50 mg PO DAILY 07/12/17 Furosemide [Lasix] 40 mg PO DAILY 30 Days tab 07/15/17 Lactulose [Enulose] 10 gm PO DAILY PRN udc 07/15/17 Magnesium Oxide [Mag-Ox] 400 mg PO BID tab 07/15/17 Ondansetron HCl [Zofran] 4 mg PO Q12 PRN #20 tablet 07/15/17 Pantoprazole [Protonix EC Tab] 40 mg PO DAILY ect 07/15/17 Propranolol [Inderal] 20 mg PO BID #60 tab 07/15/17 Spironolactone [Aldactone] 100 mg PO DAILY tab 07/15/17 levETIRAcetam [Keppra] 500 mg PO DAILY tab 07/15/17 rifAXIMin [Xifaxan] 550 mg PO BID tab 07/15/17 - Allergies Allergies/Adverse Reactions: Allergies Allergy/AdvReac Type Severity Reaction Status Date / Time Seafood Allergy RASH Uncoded 08/01/17 01:01 Review of Systems ROS Statement: Except As Marked, All Systems Reviewed And Found Negative Constitutional: Positive for: Chills Cardiovascular: Negative for: Chest Pain Respiratory: Negative for: Cough, Shortness of Breath Gastrointestinal: Positive for: Nausea, Vomiting, Abdominal Pain, Other ( abdominal distension) Physical Exam - Reviewed Nursing Documentation Reviewed: Yes Vital Signs Reviewed: Yes - Physical Exam Appears: Positive for: Uncomfortable Skin: Positive for: Normal Color, Warm, Dry Eye Exam: Positive for: Normal appearance ENT: Positive for: Normal ENT Inspection Neck: Positive for: Normal Cardiovascular/Chest: Positive for: Regular Rate, Rhythm Respiratory: Positive for: Normal Breath Sounds. Negative for: Respiratory Distress Gastrointestinal/Abdominal: Positive for: Soft, Tenderness (periumbilical tenderness), Asicites (mild) Extremity: Positive for: Normal ROM. Negative for: Deformity Neurologic/Psych: Positive for: Alert, Oriented. Negative for: Motor/Sensory Deficits - Laboratory Results Result Diagrams: 08/01/17 01:25 08/01/17 01:25 - ECG O2 Sat by Pulse Oximetry: 99 (RA) Pulse Ox Interpretation: Normal - Critical Care Total Time (In Min): 60 Medical Decision Making Medical Decision Makin Initial impression: abdominal pain, nausea, and vomiting in setting of known liver cirrhosis Initial plan: * CTA A/P * Ammonia * Lact Acid * Lipase * UPreg * UDip * PTT/PT * Morphine 4mg IVP * NS IV * Zofran Inj 4mg IV * BCx * UA * Re-eval 0204 Labs reviewed: elevated transaminases, elevated bilirubin, and markedly deranged ammonia levels. CBC shows: pancytopenia with severe thrombocytopenia. * Emulose 20gm PO * ABO/RH type * Pheresis platelets * T&S * Re-eval Still pending CT. 1 hour of CCT documented. [address] Eastman (admitting [facility] practice resident), who accepts patient under INPATIENT MED/SURG. 0300 CT FINDINGS Lower thorax: Large left pleural effusion. Left lower lobe consolidation and infiltrate representing atelectasis versus pneumonia versus mucus plugging or aspiration. This finding is new when compared to prior examination. Right lung pneumatoceles. ABDOMEN: Liver: Nodular cirrhotic liver. Gallbladder and bile ducts: Distended gallbladder with hyperdense sludge and gallstones with vicarious excretion of the contrast. Pancreas: Unremarkable. No mass. No ductal dilation. Spleen: Splenomegaly measuring 18 cm. Adrenals: Unremarkable. No mass. Kidneys and ureters: Unremarkable. No solid mass. No hydronephrosis. Stomach and bowel: Diffuse right colonic edema could be a sequela of hepatocellular disease versus infectious or inflammatory colitis. There are nonspecific fluid filled small bowel loops. These findings can represent ileus versus enteritis versus slow transit versus peristalsis.There is stool like appearance to the distal small bowel. This may represent slow transit. No obstruction. Appendix: Air distention of the appendix which is surrounded by ascites. PELVIS: Bladder: Partially distended bladder. Reproductive: Uterus is seen. ABDOMEN and PELVIS: Intraperitoneal space: Large amount of abdominal and pelvic ascites. Bones/joints: No acute fracture. No dislocation. Soft tissues: There is large ventral fat and fluid containing abdominal wall hernia with septations and distention. Correlation with clinical data is recommended if incarceration of the ventral hernia is clinically suspected. Vasculature: Extensive upper abdominal varices.The aorta is normal in caliber and there are no periaortic collections. No abdominal aortic aneurysm. Lymph nodes: Unremarkable. No enlarged lymph nodes. Other findings: Similar findings were seen on the prior examination. IMPRESSION: 1. Large left pleural effusion. Left lower lobe consolidation and infiltrate representing atelectasis versus pneumonia versus mucus plugging or aspiration. This finding is new when compared to prior examination. 2. Endstage liver disease with splenomegaly varices and ascites representing portal hypertension. 3. Diffuse right colonic edema could be a sequela of hepatocellular disease versus infectious or inflammatory colitis. 4. There is large ventral fat and fluid containing abdominal wall hernia with septations and distention. Correlation with clinical data is recommended if incarceration of the ventral hernia is clinically suspected. There is interval progression of the findings when compared to prior examination. Correlation with internal medicine gastroenterology/hepatology evaluation and further workup or followup as recommended by patient's clinical data. IV Rocephin, Zithromax, and Clindamycin ordered, although in provider's opinion likely left lower lobe consolidation and infiltrate more likely insurance follow up representative of atelectasis. Scribe Attestation: Documented by Mariann Arellano acting as a scribe for Enrrique Lara MD. Scribe Attestation: All medical record entries made by the Scribe were at my direction and personally dictated by me. I have reviewed the chart and agree that the record accurately reflects my personal performance of the history, physical exam, medical decision making, and the department course for this patient. I have also personally directed, reviewed, and agree with the discharge instructions and disposition. Disposition - Clinical Impression Clinical Impression: Cryptogenic cirrhosis of liver, Hyperammonemia - Patient ED Disposition Is Patient to be Admitted: Yes - Disposition Disposition Time: 02:00 Condition: GUARDED - Pt Status Changed To: Hospital Disposition Of: Inpatient - Admit Certification Admit to Inpatient:: After my assessment, the patient will require hospitalization for at least two midnights. This is because of the severity of symptoms shown, intensity of services needed, and/or the medical risk in this patient being treated as an outpatient.
[2017-08-01] MEDS ORDERED: Morphine 4 MG/ML VIAL ONE (01:37)
[2017-08-01 01:42] LABS: RBC URINE 44 /hpf (0-3); URINE BACTERIA RARE (<OCC); URINE BILIRUBIN NEGATIVE (NEGATIVE); URINE BLOOD LARGE (NEGATIVE); URINE COLOR YELLOW (YELLOW); URINE GLUCOSE (UA) NEG (Normal); URINE KETONE NEGATIVE (NEGATIVE); URINE LEUKOCYTE ESTERASE NEG Leu/uL (Negative); URINE PROTEIN NEGATIVE (NEGATIVE); URINE UROBILINOGEN 0.2-1.0 mg/dL (0.2-1.0); WBC URINE 2 /hpf (0-5)
[2017-08-01 01:53] LABS: ALB/GLOB RATIO 0.8 (1.0-2.1); ALKALINE PHOSPHATASE 141 U/L (38-126); ALT/SGPT 72 U/L (9-52); AST/SGOT 63 U/L (14-36); BILIRUBIN,TOTAL 1.8 mg/dl (0.2-1.3); BLOOD UREA NITROGEN 19 mg/dl (7-17); CALCIUM 7.6 mg/dL (8.4-10.2); CARBON DIOXIDE 20 mmol/L (22-30); CHLORIDE 108 mmol/L (98-107); GFR AFRICAN-AMERICAN > 60; GLUCOSE,RANDOM 111 mg/dL (65-105); LIPASE 148 U/L (23-300); POTASSIUM 4.4 MMOL/L (3.6-5.0); SODIUM 133 mmol/l (132-148); TOTAL PROTEIN 5.8 G/DL (6.3-8.2)
[2017-08-01 02:00] LABS: BASO % 0.1 % (0.0-2.0); EOS % 0.6 % (0.0-4.0); HEMATOCRIT 26.9 % (34.0-47.0); LYMPH # 0.1 K/uL (1.0-4.3); LYMPH % 7.7 % (20.0-40.0); MEAN CELL VOLUME 95.8 fl (81.0-99.0); MEAN CORPUSCULAR HEMOGLOBIN 32.1 pg (27.0-31.0); MEAN CORPUSCULAR HGB CONC 33.5 g/dL (33.0-37.0); MEAN PLATELET VOLUME 10.2 fl (7.2-11.7); MONO # 0.2 K/uL (0.0-0.8); NEUT # 1.3 K/uL (1.8-7.0); NEUT % 78.6 % (50.0-75.0); NRBC % 0.1 % (0.0-0.0); RED CELL DISTRIBUTION WIDTH 18.8 % (11.5-14.5)
[2017-08-01 02:06] LABS: WHITE BLOOD COUNT 1.7 K/uL (4.8-10.8)
[2017-08-01] MEDS ORDERED: Iohexol 300 100 ML IJ ONE (02:11)
[2017-08-01 02:14] LABS: PARTIAL THROMBOPLASTIN TIME 44.8 Seconds (25.6-37.1)
[2017-08-01 02:47] LABS: EOSINOPHIL 1 % (0-7); NEUTROPHIL 88 % (42-75); TOTAL CELLS COUNTED 100
--- NOTE | 2017-08-01 03:00 | CT ---
EXAM: CT Abdomen and Pelvis With Intravenous Contrast CLINICAL HISTORY: 31 years old, female; Pain; Abdominal pain; Generalized TECHNIQUE: Axial computed tomography images of the abdomen and pelvis with intravenous contrast. All CT scans at this facility use one or more dose reduction techniques, viz.: automated exposure control; ma/kV adjustment per patient size (including targeted exams where dose is matched to indication; i.e. head); or iterative reconstruction technique. 669 images are submitted. Coronal and sagittal reformatted images were created and reviewed. CONTRAST: 85 mL of [id number] administered intravenously. COMPARISON: CT - ABD PELVIS PO IV CONTRAST 2017-07-12 17:07 FINDINGS: Lower thorax: Large left pleural effusion. Left lower lobe consolidation and infiltrate representing atelectasis versus pneumonia versus mucus plugging or aspiration. This finding is new when compared to prior examination. Right lung pneumatoceles. ABDOMEN: Liver: Nodular cirrhotic liver. Gallbladder and bile ducts: Distended gallbladder with hyperdense sludge and gallstones with vicarious excretion of the contrast. Pancreas: Unremarkable. No mass. No ductal dilation. Spleen: Splenomegaly measuring 18 cm. Adrenals: Unremarkable. No mass. Kidneys and ureters: Unremarkable. No solid mass. No hydronephrosis. Stomach and bowel: Diffuse right colonic edema could be a sequela of hepatocellular disease versus infectious or inflammatory colitis. There are nonspecific fluid filled small bowel loops. These findings can represent ileus versus enteritis versus slow transit versus peristalsis.There is stool like appearance to the distal small bowel. This may represent slow transit. No obstruction. Appendix: Air distention of the appendix which is surrounded by ascites. PELVIS: Bladder: Partially distended bladder. Reproductive: Uterus is seen. ABDOMEN and PELVIS: Intraperitoneal space: Large amount of abdominal and pelvic ascites. Bones/joints: No acute fracture. No dislocation. Soft tissues: There is large ventral fat and fluid containing abdominal wall hernia with septations and distention. Correlation with clinical data is recommended if incarceration of the ventral hernia is clinically suspected. Vasculature: Extensive upper abdominal varices.The aorta is normal in caliber and there are no guicho-aortic collections. No abdominal aortic aneurysm. Lymph nodes: Unremarkable. No enlarged lymph nodes. Other findings: Similar findings were seen on the prior examination. IMPRESSION: 1. Large left pleural effusion. Left lower lobe consolidation and infiltrate representing atelectasis versus pneumonia versus mucus plugging or aspiration. This finding is new when compared to prior examination. 2. Endstage liver disease with splenomegaly varices and ascites representing portal hypertension. 3. Diffuse right colonic edema could be a sequela of hepatocellular disease versus infectious or inflammatory colitis. 4. There is large ventral fat and fluid containing abdominal wall hernia with septations and distention. Correlation with clinical data is recommended if incarceration of the ventral hernia is clinically suspected. There is interval progression of the findings when compared to prior examination. Correlation with internal medicine gastroenterology/hepatology evaluation and further workup or followup as recommended by patient's clinical data.
[2017-08-01 03:06] LABS: PLATELET COUNT 9 K/uL (130-400)
[2017-08-01] MEDS ORDERED: cefTRIAXone IV 1 gm in Dextros 50 ML IVPB STA (03:40)
[2017-08-01] MEDS ORDERED: Clindamycin 150 mg/mL Inj IV STA (03:44)
[2017-08-01] MEDS ORDERED: Azithromycin 500 MG in Sodium Chloride 0.9% 250 ML IVPB STA (03:58)
[2017-08-01] MEDS ORDERED: Clindamycin 600mg/50ml NS 600 MG/50 ML BAG IVPB STA (04:12)
--- NOTE | 2017-08-01 05:01 | CP.PCM.HP ---
History of Present Illness - History of Present Illness History of Present Illness: 31 year old female with PMH of cryptogenic cirrhosis presented with complaints of nausea and vomiting for past day. Typically she is nauseous daily, but is able to tolerate diet. Day prior to presentation patient able to tolerate breakfast, had vomiting early afternoon, with subjective fever with associated abdominal pain which prompted ED visit. Her abdominal pain is constant and sharp , localized to umbilical hernia. She normally wears an abdominal binder that helps with the pain. She reports usual BM are about 7-8 times per day, however for past few days she has only had 3-4 small BMs. She is unable to tolerate lactulose, her body rejects it and it is difficult for her to drink it. As per ED nurse, patient did not take for past 4 days. She had small nosebleed earlier today. Also reports dyspnea that started around 15:00 yesterday, no associated cough or chest pain. She was recently admitted for hyperammonemia and pancytopenia. She was treated for UTI and started of Ciprofloxacin 500mg PO daily for SBP prophylaxis. No other changes in medications. She followed up with 'one of her doctor's' last week and states her blood work was fine at that time. For the past year she has received 'injections' for her platelets. She follows up at [facility] in [place] with her PMD, [employer] and other specialists. Pt is on transplant list for liver. 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 FMHx: no family hx Present on Admission - Present on Admission Any Indicators Present on Admission: No Past Patient History - Infectious Disease Hx of Infectious Diseases: None - Past Medical History & Family History Past Medical History?: Yes - Past Social History Alcohol: None Drugs: Denies - CARDIAC Hx Cardiac Disorders: No - PULMONARY Hx Respiratory Disorders: No - NEUROLOGICAL Hx Neurological Disorder: No - HEENT Hx HEENT Problems: No - RENAL Hx Chronic Kidney Disease: No - ENDOCRINE/METABOLIC Hx Endocrine Disorders: No - HEMATOLOGICAL/ONCOLOGICAL Hx Anemia: Yes Hx Human Immunodeficiency Virus (HIV): No - INTEGUMENTARY Hx Dermatological Problems: No - MUSCULOSKELETAL/RHEUMATOLOGICAL Hx Musculoskeletal Disorders: No - GASTROINTESTINAL Hx Gastrointestinal Disorders: Yes Other/Comment: Umbilical Hernia - GENITOURINARY/GYNECOLOGICAL Hx Genitourinary Disorders: No - PSYCHIATRIC Hx Psychophysiologic Disorder: No Hx Substance Use: No - SURGICAL HISTORY Hx Surgeries: Yes Hx Splenectomy: Yes - ANESTHESIA Hx Anesthesia: Yes Hx Anesthesia Reactions: No Hx Malignant Hyperthermia: No Meds Allergies/Adverse Reactions: Allergies Allergy/AdvReac Type Severity Reaction Status Date / Time Seafood Allergy RASH Uncoded 08/01/17 01:01 Physical Exam - Constitutional Appears: Non-toxic - Head Exam Head Exam: ATRAUMATIC, NORMAL INSPECTION, NORMOCEPHALIC - Eye Exam Eye Exam: Normal appearance Pupil Exam: PERRL - ENT Exam ENT Exam: Mucous Membranes Moist - Respiratory Exam Respiratory Exam: Decreased Breath Sounds (right lung base, left lung), Clear to Auscultation Bilateral (anteriorly), NORMAL BREATHING PATTERN. absent: Accessory Muscle Use, Chest Wall Tenderness, Rhonchi, Wheezes, Respiratory Distress - Cardiovascular Exam Cardiovascular Exam: Tachycardia (HR 100s), REGULAR RHYTHM, +S1, +S2 - GI/Abdominal Exam GI & Abdominal Exam: Distended (mild), Hyperactive Bowel Sounds, Soft. absent: Guarding, Rebound Additional comments: umbilical hernia, no contents but tender to palpation - Rectal Exam Rectal Exam: Deferred - Extremities Exam Extremities exam: Positive for: normal inspection - Back Exam Back exam: NORMAL INSPECTION. absent: CVA tenderness (L), CVA tenderness (R) - Neurological Exam Neurological exam: Alert, CN II-XII Intact, Oriented x3 - Psychiatric Exam Psychiatric exam: Normal Affect, Normal Mood - Skin Skin Exam: Dry, Intact, Warm Results - Vital Signs Recent Vital Signs: Last Vital Signs Temp 98.7 F 08/01/17 04:00 Pulse 104 H 08/01/17 04:00 Resp 17 08/01/17 04:00 BP 120/68 08/01/17 04:00 Pulse Ox 99 08/01/17 04:00 - Labs Result Diagrams: 08/01/17 01:25 08/01/17 01:25 Labs: Laboratory Results - last 24 hr 08/01/17 08/01/17 08/01/17 01:15 01:25 01:25 WBC 1.7 L* RBC 2.81 L Hgb 9.0 L Hct 26.9 L MCV 95.8 MCH 32.1 H MCHC 33.5 RDW 18.8 H Plt Count 9 L* D MPV 10.2 Neut % (Auto) 78.6 H Lymph % (Auto) 7.7 L [place] % (Auto) 13.0 H Eos % (Auto) 0.6 Baso % (Auto) 0.1 Neut # 1.3 L Lymph # 0.1 L [place] # 0.2 Eos # 0.0 Baso # 0.0 Neutrophils % (Manual) 88 H Lymphocytes % (Manual) 6 L Monocytes % (Manual) 5 Eosinophils % (Manual) 1 Platelet Estimate Markedly decreased L Poikilocytosis (manual Slight Anisocytosis (manual) Slight Ovalocytes Slight PT INR APTT Sodium Potassium Chloride Carbon Dioxide Anion Gap BUN Creatinine Est GFR ( Amer) Est GFR (Non-Af Amer) Random Glucose Lactic Acid Calcium Total Bilirubin AST ALT Alkaline Phosphatase Ammonia 249 H* D Total Protein Albumin Globulin Albumin/Globulin Ratio Lipase Urine Color Yellow Urine Clarity Slighty-cloudy Urine pH 6.0 Ur Specific [place] 1.020 Urine Protein Negative Urine Glucose (UA) Neg Urine Ketones Negative Urine Blood Large Urine Nitrate Negative Urine Bilirubin Negative Urine Urobilinogen 0.2-1.0 Ur Leukocyte Esterase Neg Urine RBC (Auto) 44 H Urine Microscopic WBC 2 Ur Squamous Epith Cells 1 Urine Bacteria Rare Hyaline Casts 0-2 BBK History Checked 08/01/17 08/01/17 08/01/17 01:25 01:25 01:25 WBC RBC Hgb Hct MCV MCH MCHC RDW Plt Count MPV Neut % (Auto) Lymph % (Auto) [place] % (Auto) Eos % (Auto) Baso % (Auto) Neut # Lymph # [place] # Eos # Baso # Neutrophils % (Manual) Lymphocytes % (Manual) Monocytes % (Manual) Eosinophils % (Manual) Platelet Estimate Poikilocytosis (manual Anisocytosis (manual) Ovalocytes PT 19.9 H INR 1.8 H APTT 44.8 H Sodium 133 Potassium 4.4 Chloride 108 H Carbon Dioxide 20 L Anion Gap 9 L BUN 19 H Creatinine 0.6 L Est GFR ( Amer) > 60 Est GFR (Non-Af Amer) > 60 Random Glucose 111 H Lactic Acid 0.9 Calcium 7.6 L Total Bilirubin 1.8 H AST 63 H ALT 72 H Alkaline Phosphatase 141 H Ammonia Total Protein 5.8 L Albumin 2.5 L Globulin 3.2 Albumin/Globulin Ratio 0.8 L Lipase 148 Urine Color Urine Clarity Urine pH Ur Specific [place] Urine Protein Urine Glucose (UA) Urine Ketones Urine Blood Urine Nitrate Urine Bilirubin Urine Urobilinogen Ur Leukocyte Esterase Urine RBC (Auto) Urine Microscopic WBC Ur Squamous Epith Cells Urine Bacteria Hyaline Casts BBK History Checked 08/01/17 02:20 WBC RBC Hgb Hct MCV MCH MCHC RDW Plt Count MPV Neut % (Auto) Lymph % (Auto) [place] % (Auto) Eos % (Auto) Baso % (Auto) Neut # Lymph # [place] # Eos # Baso # Neutrophils % (Manual) Lymphocytes % (Manual) Monocytes % (Manual) Eosinophils % (Manual) Platelet Estimate Poikilocytosis (manual Anisocytosis (manual) Ovalocytes PT INR APTT Sodium Potassium Chloride Carbon Dioxide Anion Gap BUN Creatinine Est GFR ( Amer) Est GFR (Non-Af Amer) Random Glucose Lactic Acid Calcium Total Bilirubin AST ALT Alkaline Phosphatase Ammonia Total Protein Albumin Globulin Albumin/Globulin Ratio Lipase Urine Color Urine Clarity Urine pH Ur Specific [place] Urine Protein Urine Glucose (UA) Urine Ketones Urine Blood Urine Nitrate Urine Bilirubin Urine Urobilinogen Ur Leukocyte Esterase Urine RBC (Auto) Urine Microscopic WBC Ur Squamous Epith Cells Urine Bacteria Hyaline Casts BBK History Checked Patient has bt - Imaging and Cardiology CT scan - abdomen Status: Image reviewed by me, Report reviewed by me Additional comment: FINDINGS: Lower thorax: Large left pleural effusion. Left lower lobe consolidation and infiltrate representing atelectasis versus pneumonia versus mucus plugging or aspiration. This finding is new when compared to prior examination. Right lung pneumatoceles. ABDOMEN: Liver: Nodular cirrhotic liver. Gallbladder and bile ducts: Distended gallbladder with hyperdense sludge and gallstones with vicarious excretion of the contrast. Pancreas: Unremarkable. No mass. No ductal dilation. Spleen: Splenomegaly measuring 18 cm. Adrenals: Unremarkable. No mass. Kidneys and ureters: Unremarkable. No solid mass. No hydronephrosis. Stomach and bowel: Diffuse right colonic edema could be a sequela of hepatocellular disease versus infectious or inflammatory colitis. There are nonspecific fluid filled small bowel loops. These findings can represent ileus versus enteritis versus slow transit versus peristalsis.There is stool like appearance to the distal small bowel. This may represent slow transit. No obstruction. Appendix: Air distention of the appendix which is surrounded by ascites. PELVIS: Bladder: Partially distended bladder. Reproductive: Uterus is seen. ABDOMEN and PELVIS: Intraperitoneal space: Large amount of abdominal and pelvic ascites. Bones/joints: No acute fracture. No dislocation. Soft tissues: There is large ventral fat and fluid containing abdominal wall hernia with septations and distention. Correlation with clinical data is recommended if incarceration of the ventral hernia is clinically suspected. Vasculature: Extensive upper abdominal varices.The aorta is normal in caliber and there are no guicho-aortic collections. No abdominal aortic aneurysm. Lymph nodes: Unremarkable. No enlarged lymph nodes. Other findings: Similar findings were seen on the prior examination. IMPRESSION: 1. Large left pleural effusion. Left lower lobe consolidation and infiltrate representing atelectasis versus pneumonia versus mucus plugging or aspiration. This finding is new when compared to prior examination. 2. Endstage liver disease with splenomegaly varices and ascites representing portal hypertension. 3. Diffuse right colonic edema could be a sequela of hepatocellular disease versus infectious or inflammatory colitis. 4. There is large ventral fat and fluid containing abdominal wall hernia with septations and distention. Correlation with clinical data is recommended if incarceration of the ventral hernia is clinically suspected. There is interval progression of the findings when compared to prior examination. Correlation with internal medicine gastroenterology/hepatology evaluation and further workup or followup as recommended by patient's clinical data. Assessment & Plan (1) Cryptogenic cirrhosis of liver Assessment and Plan: 31 year old female with hx of cryptogenic cirrhosis, admitted for hyperammonemia and left sided pleural effusion. Hyperammonemia likely due to noncompliance with medications. NO asterixis noted on exam. Pleural effusion possibly secondary to HCAP given CT findings. Patient is alert and responsive, respirations are unlabored, O2 sat 99% on room air. She has been afebrile since admission, one subjective fever at home. Blood and urine cultures done. IV abx ordered in ED for PNA. Will continue with tx for HCAP given CT findings and recent admission. Pt on Cipro 500mg PO daily as outpatient for SBP prophylaxis She is on transplant list at [facility]. MELD SCORE: 20 points Gastroenterology consult for coagulopathy/pancytopenia will give platlets and obtain hematology/oncology consult. Status: Chronic (2) Hyperammonemia Assessment and Plan: repeat level ordered, monitor titrate lactulose to 2-3 BMs patient reports difficulty with taking her lactulose, and is likely noncompliant awaiting GI recommendations. Status: Acute (3) Abdominal pain Assessment and Plan: umbilical hernia, fat/fluid no bowel contents. toradol for pain PRN pt does NOT want MORPHINE or DILADUDID Status: Acute (4) Pancytopenia Status: Chronic Priority: Medium (5) Pleural effusion on left Assessment and Plan: tx for hcap, monitor respiratory status. Status: Acute (6) Coagulopathy Status: Chronic (7) DVT prophylaxis Assessment and Plan: scds Status: Acute
[2017-08-01] MEDS ORDERED: Lactulose 10 gm/15 ml Syrup PO PRN ×2 (05:12→07:00)
[2017-08-01] MEDS ORDERED: levoFLOXacin 750 mg in D5W 150 ML BAG IVPB SCH (07:51)
[2017-08-01] MEDS ORDERED: ZINC GLUCONATE 50 MG PO SCH (09:00)
[2017-08-01] MEDS: levoFLOXacin 750 mg in D5W 750 MG/150 ML BAG IVPB SCH (11:08)
[2017-08-01] MEDS: Magnesium Oxide 400 mg Tab UD PO SCH ×2 (11:09→16:41)
[2017-08-01] MEDS: Pantoprazole 40 mg EC Tab PO SCH (11:09)
--- NOTE | 2017-08-01 12:26 | CT ---
PROCEDURE: CT scan chest dated 08/01/2017. HISTORY: Left pleural effusion. COMPARISON: Comparison made with chest radiograph 07/13/[address] scan of the abdomen and pelvis dated 07/02/2017 2:20 a.m. which imaged both lung bases TECHNIQUE: Contiguous axial images were obtained through the chest without intravenous contrast enhancement. Sagittal and coronal reconstructions were performed. Radiation dose (DLP): 262.01 mGy-cm. This CT exam was performed using one or more of the following dose reduction techniques: Automated exposure control, adjustment of the mA and/or kV according to patient size, and/or use of iterative reconstruction technique. FINDINGS: LUNGS: Patchy nodular opacities spell seen in the right lower lobe/posterior sulcus. Suspect the interstitial markings are increased with hazy diffuse ground-glass opacities suggesting vascular congestion ; rule out CHF versus fluid overload. . Small blebs and bullous changes seen in the right upper and lower lung samuels. MEDIASTINUM: There appears to be slight shift of the mediastinum from left to right due to the aforementioned large effusion and atelectasis. The heart size is within range of normal. . Questionable a small anterior pericardial effusion spell spell. Ascending thoracic aorta measures approximately 2.6 cm and descending thoracic aorta is not well delineated though estimated at approximately 1.96 cm. Pulmonary trunk measures approximately 2.7 cm. Central airways are patent though slightly shifted to the right side. Small hiatal hernia. PLEURA: Very large left-sided effusion and mild left basilar atelectasis. This effusion and atelectasis has increased in size from prior study. . BONES: Mild multilevel degenerative spondylosis of the thoracic spine UPPER ABDOMEN: Findings are consistent with underlying cirrhosis and mild large amount of abdominal ascites. The spleen is markedly enlarged. Previously noted and described upper abdominal varices are less well seen as compared to prior enhanced CT scan of the abdomen. . Cholelithiasis. Edematous changes of the right colon OTHER FINDINGS: None. IMPRESSION: Large left-sided effusion and left basilar atelectasis increased from prior CT scan. Nodular opacities seen in the right lung base. . Findings also suggest underlying vascular congestion; rule out CHF versus fluid overload. Small blebs and bullous changes are seen throughout the right upper and lower lung samuels. Mild mediastinal shift from left to right due to the aforementioned large effusion and atelectasis. Findings consistent with underlying cirrhosis large amount of abdominal ascites and varices, the latter of which are less well seen on this study as compared to prior CT scan of the abdomen and pelvis above. Marked splenomegaly. Cholelithiasis. Please refer to CT scan abdomen pelvis obtained earlier same day for additional details.
[2017-08-01] MEDS: Piperacillin/Tazobact 4.5 GM in Sodium Chloride 0.9% 100 ML IVPB SCH ×2 (16:42→21:09)
--- NOTE | 2017-08-01 20:46 | CP.PCM.CON ---
History of Present Illness - History of Present Illness History of Present Illness: 31 yo female with cryptogenic cirrhosis and awaiting liver transplant at [facility] admitted with abdominal pain, nausea, and weakness. Patient stopped lactulose about a week ago due to nausea. She had been hospitalized about 1 month ago. Review of Systems - Constitutional Constitutional: Chills - EENT Eyes: absent: Blurred Vision Ears: absent: Decreased Hearing Nose/Mouth/Throat: absent: Epistaxis - Cardiovascular Cardiovascular: absent: Chest Pain - Respiratory Respiratory: absent: Dyspnea - Gastrointestinal Gastrointestinal: Abdominal Pain - Genitourinary Genitourinary: absent: Change in Urinary Stream Past Patient History - Infectious Disease Hx of Infectious Diseases: None - Past Medical History & Family History Past Medical History?: Yes - Past Social History Alcohol: None Drugs: Denies - CARDIAC Hx Cardiac Disorders: No - PULMONARY Hx Respiratory Disorders: No - NEUROLOGICAL Hx Neurological Disorder: No - HEENT Hx HEENT Problems: No - RENAL Hx Chronic Kidney Disease: No - ENDOCRINE/METABOLIC Hx Endocrine Disorders: No - HEMATOLOGICAL/ONCOLOGICAL Hx Anemia: Yes Hx Human Immunodeficiency Virus (HIV): No - INTEGUMENTARY Hx Dermatological Problems: No - MUSCULOSKELETAL/RHEUMATOLOGICAL Hx Musculoskeletal Disorders: No - GASTROINTESTINAL Hx Gastrointestinal Disorders: Yes Other/Comment: Umbilical Hernia - GENITOURINARY/GYNECOLOGICAL Hx Genitourinary Disorders: No - PSYCHIATRIC Hx Psychophysiologic Disorder: No Hx Substance Use: No - SURGICAL HISTORY Hx Surgeries: Yes Hx Splenectomy: Yes - ANESTHESIA Hx Anesthesia: Yes Hx Anesthesia Reactions: No Hx Malignant Hyperthermia: No Meds Allergies/Adverse Reactions: Allergies Allergy/AdvReac Type Severity Reaction Status Date / Time Seafood Allergy RASH Uncoded 08/01/17 01:01 - Medications Medications: Current Medications Folic Acid (Folic Acid) 1 mg PO DAILY [facility] Last Admin: 08/01/17 11:08 Dose: 1 mg Furosemide (Lasix) 40 mg PO DAILY [facility] Last Admin: 08/01/17 11:08 Dose: 40 mg Home Med (Zinc Gluconate [Zinc]) 50 mg PO DAILY [facility] Levofloxacin/Dextrose (Levaquin 750mg) 750 mg in 150 mls @ 150 mls/hr IVPB DAILY [facility] Last Admin: 08/01/17 11:08 Dose: 150 mls/hr Piperacillin Sod/Tazobactam (Sod 4.5 gm/ Sodium Chloride) 100 mls @ 100 mls/hr IVPB Q6 [facility] PRN Reason: Protocol Last Admin: 08/01/17 16:42 Dose: 100 mls/hr Ketorolac Tromethamine (Toradol) 15 mg IVP Q6 PRN PRN Reason: Pain, moderate (4-7) Last Admin: 08/01/17 07:53 Dose: 15 mg Lactulose (Enulose) 20 gm IN TID [facility] Last Admin: 08/01/17 16:40 Dose: Not Given Magnesium Oxide (Mag-Ox) 400 mg PO BID [facility] Last Admin: 08/01/17 16:41 Dose: 400 mg Ondansetron HCl (Zofran Inj) 4 mg IVP Q6 PRN PRN Reason: Nausea/Vomiting Last Admin: 08/01/17 08:52 Dose: 4 mg Pantoprazole Sodium (Protonix Ec Tab) 40 mg PO DAILY [facility] Last Admin: 08/01/17 11:09 Dose: 40 mg Propranolol HCl (Inderal) 20 mg PO BID [facility] Last Admin: 08/01/17 16:40 Dose: 20 mg Rifaximin (Xifaxan) 550 mg PO BID [facility] PRN Reason: Protocol Last Admin: 08/01/17 16:41 Dose: 550 mg Spironolactone (Aldactone) 100 mg PO DAILY [facility] Last Admin: 08/01/17 16:40 Dose: 100 mg Physical Exam - Constitutional Appears: No Acute Distress - Head Exam Head Exam: ATRAUMATIC - Eye Exam Eye Exam: EOMI Pupil Exam: PERRL - ENT Exam ENT Exam: Mucous Membranes Moist - Neck Exam Neck exam: Positive for: Normal Inspection - Respiratory Exam Respiratory Exam: Clear to Auscultation Bilateral - Cardiovascular Exam Cardiovascular Exam: REGULAR RHYTHM, +S1, +S2 - GI/Abdominal Exam GI & Abdominal Exam: Distended, Firm, Tenderness Additional comments: Around umbillicus is firm and some degree of discoloration. Results - Vital Signs Recent Vital Signs: Last Vital Signs Temp 99 F 08/01/17 16:38 Pulse 89 08/01/17 16:40 Resp 18 08/01/17 16:38 BP 90/58 L 08/01/17 16:40 Pulse Ox 98 08/01/17 16:38 - Labs Result Diagrams: 08/01/17 01:25 08/01/17 01:25 Labs: Laboratory Results - last 24 hr 08/01/17 08/01/17 08/01/17 01:15 01:25 01:25 WBC 1.7 L* RBC 2.81 L Hgb 9.0 L Hct 26.9 L MCV 95.8 MCH 32.1 H MCHC 33.5 RDW 18.8 H Plt Count 9 L* D Manual Plt Count 20 L* MPV 10.2 Neut % (Auto) 78.6 H Lymph % (Auto) 7.7 L [place] % (Auto) 13.0 H Eos % (Auto) 0.6 Baso % (Auto) 0.1 Neut # 1.3 L Lymph # 0.1 L [place] # 0.2 Eos # 0.0 Baso # 0.0 Neutrophils % (Manual) 88 H Lymphocytes % (Manual) 6 L Monocytes % (Manual) 5 Eosinophils % (Manual) 1 Platelet Estimate Markedly decreased L Poikilocytosis (manual Slight Anisocytosis (manual) Slight Ovalocytes Slight PT INR APTT Sodium Potassium Chloride Carbon Dioxide Anion Gap BUN Creatinine Est GFR ( Amer) Est GFR (Non-Af Amer) Random Glucose Lactic Acid Calcium Total Bilirubin AST ALT Alkaline Phosphatase Ammonia 249 H* D Total Protein Albumin Globulin Albumin/Globulin Ratio Lipase Procalcitonin Urine Color Yellow Urine Clarity Slighty-cloudy Urine pH 6.0 Ur Specific [place] 1.020 Urine Protein Negative Urine Glucose (UA) Neg Urine Ketones Negative Urine Blood Large Urine Nitrate Negative Urine Bilirubin Negative Urine Urobilinogen 0.2-1.0 Ur Leukocyte Esterase Neg Urine RBC (Auto) 44 H Urine Microscopic WBC 2 Ur Squamous Epith Cells 1 Urine Bacteria Rare Hyaline Casts 0-2 Blood Type Antibody Screen BBK History Checked 08/01/17 08/01/17 08/01/17 01:25 01:25 01:25 WBC RBC Hgb Hct MCV MCH MCHC RDW Plt Count Manual Plt Count MPV Neut % (Auto) Lymph % (Auto) [place] % (Auto) Eos % (Auto) Baso % (Auto) Neut # Lymph # [place] # Eos # Baso # Neutrophils % (Manual) Lymphocytes % (Manual) Monocytes % (Manual) Eosinophils % (Manual) Platelet Estimate Poikilocytosis (manual Anisocytosis (manual) Ovalocytes PT 19.9 H INR 1.8 H APTT 44.8 H Sodium 133 Potassium 4.4 Chloride 108 H Carbon Dioxide 20 L Anion Gap 9 L BUN 19 H Creatinine 0.6 L Est GFR ( Amer) > 60 Est GFR (Non-Af Amer) > 60 Random Glucose 111 H Lactic Acid 0.9 Calcium 7.6 L Total Bilirubin 1.8 H AST 63 H ALT 72 H Alkaline Phosphatase 141 H Ammonia Total Protein 5.8 L Albumin 2.5 L Globulin 3.2 Albumin/Globulin Ratio 0.8 L Lipase 148 Procalcitonin Urine Color Urine Clarity Urine pH Ur Specific [place] Urine Protein Urine Glucose (UA) Urine Ketones Urine Blood Urine Nitrate Urine Bilirubin Urine Urobilinogen Ur Leukocyte Esterase Urine RBC (Auto) Urine Microscopic WBC Ur Squamous Epith Cells Urine Bacteria Hyaline Casts Blood Type Antibody Screen BBK History Checked 08/01/17 08/01/17 02:20 04:20 WBC RBC Hgb Hct MCV MCH MCHC RDW Plt Count Manual Plt Count MPV Neut % (Auto) Lymph % (Auto) [place] % (Auto) Eos % (Auto) Baso % (Auto) Neut # Lymph # [place] # Eos # Baso # Neutrophils % (Manual) Lymphocytes % (Manual) Monocytes % (Manual) Eosinophils % (Manual) Platelet Estimate Poikilocytosis (manual Anisocytosis (manual) Ovalocytes PT INR APTT Sodium Potassium Chloride Carbon Dioxide Anion Gap BUN Creatinine Est GFR ( Amer) Est GFR (Non-Af Amer) Random Glucose Lactic Acid Calcium Total Bilirubin AST ALT Alkaline Phosphatase Ammonia Total Protein Albumin Globulin Albumin/Globulin Ratio Lipase Procalcitonin 0.25 Urine Color Urine Clarity Urine pH Ur Specific [place] Urine Protein Urine Glucose (UA) Urine Ketones Urine Blood Urine Nitrate Urine Bilirubin Urine Urobilinogen Ur Leukocyte Esterase Urine RBC (Auto) Urine Microscopic WBC Ur Squamous Epith Cells Urine Bacteria Hyaline Casts Blood Type A POSITIVE Antibody Screen Negative BBK History Checked Patient has bt Assessment & Plan (1) Cryptogenic cirrhosis of liver Assessment and Plan: Patient was not taking lactulose at home and is now receiving lactulose enemas and po Rifaximin. Increased ascites present but low BP precludes aggressive treatment either with high dose diuretics or parascentesis. Patient receiving platelets. Also on broad spectrum antibiotics. Patient states her ventral hernia is chronic and not worst now than it has been before. Status: Chronic
[2017-08-02] MEDS: Piperacill/Tazo 4.5gm in Dex 4.5 GM/100 ML BAG IVPB SCH ×4 (03:13→21:51)
[2017-08-02] MEDS ORDERED: Sodium Chloride 0.9% 1,000 ML IV SCH (07:45)
[2017-08-02 08:14] LABS: ALB/GLOB RATIO 0.8 (1.0-2.1); ALKALINE PHOSPHATASE 95 U/L (38-126); ALT/SGPT 61 U/L (9-52); AST/SGOT 45 U/L (14-36); BILIRUBIN,TOTAL 1.9 mg/dl (0.2-1.3); BLOOD UREA NITROGEN 21 mg/dl (7-17); CALCIUM 7.8 mg/dL (8.4-10.2); CARBON DIOXIDE 19 mmol/L (22-30); CHLORIDE 114 mmol/L (98-107); GFR AFRICAN-AMERICAN > 60; GLUCOSE,RANDOM 82 mg/dL (65-105); POTASSIUM 3.6 MMOL/L (3.6-5.0); SODIUM 138 mmol/l (132-148)
[2017-08-02] MEDS: Magnesium Oxide 400 mg Tab UD PO SCH ×2 (08:29→18:28)
[2017-08-02] MEDS: Pantoprazole 40 mg EC Tab PO SCH (08:30)
--- NOTE | 2017-08-02 09:02 | CP.PCM.PN ---
Subjective - Date & Time of Evaluation Date of Evaluation: 08/02/17 Time of Evaluation: 09:03 - Subjective Subjective: 31 YO F is seen at bedside this morning complaining of back and chest pain when she coughs. Have discussed with the patient, about the thoracocentesis today. All questions were answered. She has some SOB occasionally which is most likely secondary to her pleural effusion. Objective - Vital Signs/Intake and Output Vital Signs (last 24 hours): Temp Pulse Resp BP Pulse Ox 98.4 F 89 18 92/53 L 99 08/02/17 07:56 08/02/17 08:30 08/02/17 07:56 08/02/17 08:30 08/02/17 07:56 - Medications Medications: Current Medications Folic Acid (Folic Acid) 1 mg PO DAILY [facility] Last Admin: 08/02/17 08:29 Dose: 1 mg Furosemide (Lasix) 40 mg PO DAILY [facility] Last Admin: 08/01/17 11:08 Dose: 40 mg Home Med (Zinc Gluconate [Zinc]) 50 mg PO DAILY [facility] Levofloxacin/Dextrose (Levaquin 750mg) 750 mg in 150 mls @ 150 mls/hr IVPB DAILY [facility] Last Admin: 08/01/17 11:08 Dose: 150 mls/hr Piperacillin Sod/Tazobactam Sod (Zosyn 4.5 Gm Iv Premix) 4.5 gm in 100 mls @ 100 mls/hr IVPB Q6 [facility] PRN Reason: Protocol Last Admin: 08/02/17 03:13 Dose: 100 mls/hr Sodium Chloride (Sodium Chloride 0.9%) 1,000 mls @ 999 mls/hr IV .Q1H1M [facility] Stop: 08/03/17 07:35 Last Admin: 08/02/17 08:28 Dose: 999 mls/hr Ketorolac Tromethamine (Toradol) 15 mg IVP Q6 PRN PRN Reason: Pain, moderate (4-7) Last Admin: 08/02/17 03:15 Dose: 15 mg Magnesium Oxide (Mag-Ox) 400 mg PO BID [facility] Last Admin: 08/02/17 08:29 Dose: 400 mg Ondansetron HCl (Zofran Inj) 4 mg IVP Q6 PRN PRN Reason: Nausea/Vomiting Last Admin: 08/01/17 08:52 Dose: 4 mg Pantoprazole Sodium (Protonix Ec Tab) 40 mg PO DAILY [facility] Last Admin: 08/02/17 08:30 Dose: 40 mg Propranolol HCl (Inderal) 20 mg PO BID [facility] Last Admin: 08/02/17 08:30 Dose: Not Given Rifaximin (Xifaxan) 550 mg PO BID [facility] PRN Reason: Protocol Last Admin: 08/02/17 08:30 Dose: 550 mg Spironolactone (Aldactone) 100 mg PO DAILY [facility] Last Admin: 08/01/17 16:40 Dose: 100 mg - Labs Labs: 08/01/17 01:25 08/02/17 07:28 PT 20.3 Seconds (9.8-13.1) H 08/02/17 07:28 INR 1.8 (0.9-1.2) H 08/02/17 07:28 APTT 44.8 Seconds (25.6-37.1) H 08/01/17 01:25 - Constitutional Appears: No Acute Distress - Head Exam Head Exam: NORMAL INSPECTION - Respiratory Exam Respiratory Exam: Chest Wall Tenderness, Decreased Breath Sounds, Rales (At base of left lung), NORMAL BREATHING PATTERN. absent: Wheezes, Respiratory Distress Additional comments: at base of left lung - Cardiovascular Exam Cardiovascular Exam: REGULAR RHYTHM, +S1, +S2 - GI/Abdominal Exam GI & Abdominal Exam: Soft, Tenderness (umbilical hernia elevated and tender to palpate), Normal Bowel Sounds - Extremities Exam Extremities Exam: Normal Inspection - Back Exam Back Exam: NORMAL INSPECTION - Neurological Exam Neurological Exam: Alert, Awake - Skin Skin Exam: Normal Color, Warm Assessment and Plan - Assessment and Plan (Free Text) Assessment: 31 year old female with hx of cryptogenic cirrhosis, admitted for hyperammonemia and left sided pleural effusion. Hyperammonemia likely due to noncompliance with medications. NO asterixis noted on exam. (1) Cryptogenic cirrhosis of liver Assessment and Plan: Pleural effusion possibly secondary to HCAP given CT findings. Patient is alert and responsive, respirations are unlabored, O2 sat 99% on room air. She has been afebrile since admission, one subjective fever at home. Blood and urine cultures done. IV abx ordered in ED for PNA. Will continue with tx for HCAP given CT findings and recent admission. Pt on Cipro 500mg PO daily as outpatient for SBP prophylaxis She is on transplant list at [facility]. MELD SCORE: 20 points Gastroenterology consult for coagulopathy/pancytopenia will give platlets and obtain hematology/oncology consult. Status: Chronic (2) Hyperammonemia Assessment and Plan: repeat level ordered, monitor patient reports difficulty with taking her lactulose, and is likely noncompliant Rifaxamine PO BID GI consult appreciated - F/U with repeat ammonia Status: Acute (3) Abdominal pain Assessment and Plan: umbilical hernia, fat/fluid no bowel contents. toradol for pain PRN pt does NOT want MORPHINE or DILADUDID Status: Acute (4) Pancytopenia - 2 units of platelets given - F/U with platelets. Need before patient goes for thracentesis Status: Chronic Priority: Medium (5) Pleural effusion on left Assessment and Plan: - tx for hcap, monitor respiratory status. - Thoracentesis ordered for today - C/W IV levofloxacin and zosin Status: Acute (6) Coagulopathy Status: Chronic PT: 20.3, INR: 1.8 (7) DVT prophylaxis Assessment and Plan: scds Status: Acute
[2017-08-02] MEDS: levoFLOXacin 750 mg in D5W 750 MG/150 ML BAG IVPB SCH (11:01)
--- NOTE | 2017-08-02 13:00 | CP.PCM.CON ---
History of Present Illness - History of Present Illness History of Present Illness: 31 year old female with a history of cryptogenic liver cirrhosis with portal hypertension, splenomegaly, admitted with N/V and abdominal pain, with pancytopenia and coagulopathy The patient reports her abdominal pain was sudden and sharp. She has required transfusion support in the past for PRBC and platelets. She bruises easily and has had intermittent bleeding per rectum. She also notes to chronic darkening of her urine and yellowing of her eyes. Past medical history: liver cirrhosis with portal hypertension, splenomegaly Past surgical history: None Family history: Denies hematologic and oncologic problems Social history: Denies tobacco, alcohol, and illicit drug use. Allergies: NKDA Review of systems: All remaining review of systems including HEENT, cardiovascular, respiratory, gastrointestinal, genitourinary, musculoskeletal, dermatologic, neurologic, and psychiatric are negative unless mentioned in the HPI. Past Patient History - Infectious Disease Hx of Infectious Diseases: None - Past Medical History & Family History Past Medical History?: Yes - Past Social History Alcohol: None Drugs: Denies - CARDIAC Hx Cardiac Disorders: No - PULMONARY Hx Respiratory Disorders: No - NEUROLOGICAL Hx Neurological Disorder: No - HEENT Hx HEENT Problems: No - RENAL Hx Chronic Kidney Disease: No - ENDOCRINE/METABOLIC Hx Endocrine Disorders: No - HEMATOLOGICAL/ONCOLOGICAL Hx Anemia: Yes Hx Human Immunodeficiency Virus (HIV): No - INTEGUMENTARY Hx Dermatological Problems: No - MUSCULOSKELETAL/RHEUMATOLOGICAL Hx Musculoskeletal Disorders: No - GASTROINTESTINAL Hx Gastrointestinal Disorders: Yes Other/Comment: Umbilical Hernia - GENITOURINARY/GYNECOLOGICAL Hx Genitourinary Disorders: No - PSYCHIATRIC Hx Psychophysiologic Disorder: No Hx Substance Use: No - SURGICAL HISTORY Hx Surgeries: Yes Hx Splenectomy: Yes - ANESTHESIA Hx Anesthesia: Yes Hx Anesthesia Reactions: No Hx Malignant Hyperthermia: No Meds Allergies/Adverse Reactions: Allergies Allergy/AdvReac Type Severity Reaction Status Date / Time Seafood Allergy RASH Uncoded 08/01/17 01:01 - Medications Medications: Current Medications Folic Acid (Folic Acid) 1 mg PO DAILY [facility] Last Admin: 08/02/17 08:29 Dose: 1 mg Furosemide (Lasix) 40 mg PO DAILY [facility] Last Admin: 08/01/17 11:08 Dose: 40 mg Home Med (Zinc Gluconate [Zinc]) 50 mg PO DAILY [facility] Levofloxacin/Dextrose (Levaquin 750mg) 750 mg in 150 mls @ 150 mls/hr IVPB DAILY [facility] Last Admin: 08/02/17 11:01 Dose: 150 mls/hr Piperacillin Sod/Tazobactam Sod (Zosyn 4.5 Gm Iv Premix) 4.5 gm in 100 mls @ 100 mls/hr IVPB Q6 [facility] PRN Reason: Protocol Last Admin: 08/02/17 11:00 Dose: 100 mls/hr Sodium Chloride (Sodium Chloride 0.9%) 1,000 mls @ 999 mls/hr IV .Q1H1M [facility] Stop: 08/03/17 07:35 Last Admin: 08/02/17 08:28 Dose: 999 mls/hr Ketorolac Tromethamine (Toradol) 15 mg IVP Q6 PRN PRN Reason: Pain, moderate (4-7) Last Admin: 08/02/17 03:15 Dose: 15 mg Lactulose (Enulose) 20 gm PO DAILY [facility] Magnesium Oxide (Mag-Ox) 400 mg PO BID [facility] Last Admin: 08/02/17 08:29 Dose: 400 mg Ondansetron HCl (Zofran Inj) 4 mg IVP Q6 PRN PRN Reason: Nausea/Vomiting Last Admin: 08/01/17 08:52 Dose: 4 mg Pantoprazole Sodium (Protonix Ec Tab) 40 mg PO DAILY [facility] Last Admin: 08/02/17 08:30 Dose: 40 mg Promethazine HCl/Codeine (Phenergan/Codeine Oral Syrup) 5 ml PO Q6 [facility] Propranolol HCl (Inderal) 20 mg PO BID [facility] Last Admin: 08/02/17 08:30 Dose: Not Given Spironolactone (Aldactone) 100 mg PO DAILY [facility] Last Admin: 08/01/17 16:40 Dose: 100 mg Physical Exam - Head Exam Head Exam: ATRAUMATIC - Eye Exam Eye Exam: Scleral icterus - ENT Exam ENT Exam: Mucous Membranes Dry - Respiratory Exam Respiratory Exam: Decreased Breath Sounds - Cardiovascular Exam Cardiovascular Exam: +S1, +S2 - GI/Abdominal Exam GI & Abdominal Exam: Normal Bowel Sounds - Extremities Exam Extremities exam: Positive for: pedal edema Results - Vital Signs Recent Vital Signs: Last Vital Signs Temp 98.1 F 08/02/17 12:08 Pulse 82 08/02/17 12:08 Resp 18 08/02/17 12:08 BP 93/43 L 08/02/17 12:08 Pulse Ox 97 08/02/17 12:08 - Labs Result Diagrams: 08/01/17 01:25 08/02/17 07:28 Labs: Laboratory Results - last 24 hr 08/01/17 08/02/17 08/02/17 04:20 07:28 07:28 Manual Plt Count PT 20.3 H INR 1.8 H Sodium 138 Potassium 3.6 Chloride 114 H Carbon Dioxide 19 L Anion Gap 9 L BUN 21 H Creatinine 0.9 Est GFR ( Amer) > 60 Est GFR (Non-Af Amer) > 60 Random Glucose 82 Calcium 7.8 L Total Bilirubin 1.9 H AST 45 H D ALT 61 H Alkaline Phosphatase 95 Ammonia Lactate Dehydrogenase Total Protein 5.0 L Albumin 2.2 L Globulin 2.8 Albumin/Globulin Ratio 0.8 L Procalcitonin 0.25 08/02/17 08/02/17 08/02/17 07:28 08:57 08:57 Manual Plt Count 20 L* PT INR Sodium Potassium Chloride Carbon Dioxide Anion Gap BUN Creatinine Est GFR ( Amer) Est GFR (Non-Af Amer) Random Glucose Calcium Total Bilirubin AST ALT Alkaline Phosphatase Ammonia 24 D Lactate Dehydrogenase 475 Total Protein Albumin Globulin Albumin/Globulin Ratio Procalcitonin 08/02/17 09:30 Manual Plt Count 28 L* PT INR Sodium Potassium Chloride Carbon Dioxide Anion Gap BUN Creatinine Est GFR ( Amer) Est GFR (Non-Af Amer) Random Glucose Calcium Total Bilirubin AST ALT Alkaline Phosphatase Ammonia Lactate Dehydrogenase Total Protein Albumin Globulin Albumin/Globulin Ratio Procalcitonin Assessment & Plan (1) Pancytopenia Assessment and Plan: secondary to liver cirrhosis, 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 Status: Chronic
--- NOTE | 2017-08-02 13:03 | CP.PCM.PN ---
Subjective - Date & Time of Evaluation Date of Evaluation: 08/02/17 Time of Evaluation: 09:00 - Subjective Subjective: Patient with chest pain with coughing . Having abdominal pain at site of ventral hernia. Objective - Vital Signs/Intake and Output Vital Signs (last 24 hours): Temp Pulse Resp BP Pulse Ox 98.1 F 82 18 93/43 L 97 08/02/17 12:08 08/02/17 12:08 08/02/17 12:08 08/02/17 12:08 08/02/17 12:08 - Medications Medications: Current Medications Folic Acid (Folic Acid) 1 mg PO DAILY [facility] [place] Last Admin: 08/02/17 08:29 Dose: 1 mg Furosemide (Lasix) 40 mg PO DAILY [facility] [place] Last Admin: 08/01/17 11:08 Dose: 40 mg Home Med (Zinc Gluconate [Zinc]) 50 mg PO DAILY [facility] [place] Levofloxacin/Dextrose (Levaquin 750mg) 750 mg in 150 mls @ 150 mls/hr IVPB DAILY [facility] [place] Last Admin: 08/02/17 11:01 Dose: 150 mls/hr Piperacillin Sod/Tazobactam Sod (Zosyn 4.5 Gm Iv Premix) 4.5 gm in 100 mls @ 100 mls/hr IVPB Q6 [facility] [place] PRN Reason: Protocol Last Admin: 08/02/17 11:00 Dose: 100 mls/hr Sodium Chloride (Sodium Chloride 0.9%) 1,000 mls @ 999 mls/hr IV .Q1H1M [facility] [place] Stop: 08/03/17 07:35 Last Admin: 08/02/17 08:28 Dose: 999 mls/hr Ketorolac Tromethamine (Toradol) 15 mg IVP Q6 PRN PRN Reason: Pain, moderate (4-7) Last Admin: 08/02/17 03:15 Dose: 15 mg Lactulose (Enulose) 20 gm PO DAILY [facility] [place] Magnesium Oxide (Mag-Ox) 400 mg PO BID [facility] [place] Last Admin: 08/02/17 08:29 Dose: 400 mg Ondansetron HCl (Zofran Inj) 4 mg IVP Q6 PRN PRN Reason: Nausea/Vomiting Last Admin: 08/01/17 08:52 Dose: 4 mg Pantoprazole Sodium (Protonix Ec Tab) 40 mg PO DAILY [facility] [place] Last Admin: 08/02/17 08:30 Dose: 40 mg Promethazine HCl/Codeine (Phenergan/Codeine Oral Syrup) 5 ml PO Q6 [facility] [place] Propranolol HCl (Inderal) 20 mg PO BID [facility] [place] Last Admin: 08/02/17 08:30 Dose: Not Given Spironolactone (Aldactone) 100 mg PO DAILY [facility] [place] Last Admin: 08/01/17 16:40 Dose: 100 mg - Labs Labs: 08/01/17 01:25 08/02/17 07:28 PT 20.3 Seconds (9.8-13.1) H 08/02/17 07:28 INR 1.8 (0.9-1.2) H 08/02/17 07:28 APTT 44.8 Seconds (25.6-37.1) H 08/01/17 01:25 - Head Exam Head Exam: ATRAUMATIC - Eye Exam Eye Exam: Normal appearance - Respiratory Exam Respiratory Exam: Clear to Ausculation Bilateral - Cardiovascular Exam Cardiovascular Exam: REGULAR RHYTHM, +S1, +S2 - GI/Abdominal Exam GI & Abdominal Exam: Firm, Soft, Hernia, Normal Bowel Sounds Additional comments: firm at site of hernia with some darkish discoloration. Assessment and Plan (1) Cryptogenic cirrhosis of liver Assessment & Plan: Ammonia level better and remains afebrile. For thorascentesis today. Consider surgical consult for large ventral wall hernia Status: Chronic
[2017-08-02] MEDS: Promethazine/Cod 6.25mg-10mg/5ml Syr UD PO SCH ×2 (16:54→21:58)
--- NOTE | 2017-08-02 20:55 | CP.PCM.PCO ---
Physician Communication Note - Physician Communication Note Physician Communication Note: Paged by nurse for patient with complaint of headache and temp 100.5F Assessment/Plan - Assessment and Plan (Free Text) Assessment: Patient laying in bed in no acute distress. Reports pulsating headache in bilateral temporal lobes 03/24. Awake, alert, oriented, cranial nerves II-XII grossly intact, verbal, follows commands. no facial droop, speech clear. No signs of altered mental status. Skin warm to touch. Repeat temp 100.8F, BP 102/ 69 mmHg, pulse 101. Ordered urine and blood cultures, neuro checks Q2 and Motrin PO once. - Date & Time Date: 08/02/17 Time: 20:59
[2017-08-03] MEDS: Piperacill/Tazo 4.5gm in Dex 4.5 GM/100 ML BAG IVPB SCH ×3 (04:18→16:12)
[2017-08-03] MEDS: Promethazine/Cod 6.25mg-10mg/5ml Syr UD PO SCH ×2 (04:18→16:12)
--- NOTE | 2017-08-03 07:26 | CP.PCM.PN ---
Subjective - Date & Time of Evaluation Date of Evaluation: 08/03/17 Time of Evaluation: 07:30 - Subjective Subjective: Clinic Physician: Vee Soto 31 YO F w/ cryptogenic cirrhosis is seen at bedside. Patient slept well overnight. Pain is controlled with medication, last night patient had complained of of a temporal headache. Was seen and examined at bedside by overnight resident and was neurovascularly intact. Neuro checks were preformed Q2 all night long with unremarkable results. - This morning patients headache is better then last night, but is still complaining of a headache of 5/10, denies any blurring of vision, nausea, vomiting. Patient is scheduled to receive one unit platelets today and have a thoracentesis. 11:50 PM: Nurse called the report writer that the patient is complaining of severe headache. The report writer went down to see and examine the patient. Patient was AAOx3 , however complaining of severe pain on the back of the head, radiating all around her head to the front of the head. Patient admits to blurring of vision, however was earlier declining it. Denies any neck tenderness. Denies any nausea , vomiting, or light headedness. On physical examination : General : Patient complains of slight headache. CVS: S1s2 RRR, Resp: Decreased lung sounds at base of left lungs, slight crackles heard. Motor and sensory intact. Cranial nerve intact. Brudzinski and Kernig sign negative. Patient states she had a bleed in her head couple months a go and is concerned. CT was ordered stat and asked nurse to take patient down [facility]. - - 12:45: Nurse called about patients having a large intracranial bleed. Patient transferred to ICU and spoke to chiropractor assistant, Heme onc, Neruosurg stat consult. Objective - Vital Signs/Intake and Output Vital Signs (last 24 hours): Temp Pulse Resp BP Pulse Ox 98.1 F 81 18 91/54 L 96 08/03/17 05:26 08/03/17 05:26 08/03/17 05:26 08/03/17 05:26 08/03/17 05:26 Intake and Output: 08/03/17 08/03/17 06:59 18:59 Intake Total 340 Balance 340 - Medications Medications: Current Medications Folic Acid (Folic Acid) 1 mg PO DAILY [facility] Last Admin: 08/02/17 08:29 Dose: 1 mg Furosemide (Lasix) 40 mg PO DAILY [facility] Last Admin: 08/01/17 11:08 Dose: 40 mg Home Med (Zinc Gluconate [Zinc]) 50 mg PO DAILY [facility] Levofloxacin/Dextrose (Levaquin 750mg) 750 mg in 150 mls @ 150 mls/hr IVPB DAILY [facility] Last Admin: 08/02/17 11:01 Dose: 150 mls/hr Piperacillin Sod/Tazobactam Sod (Zosyn 4.5 Gm Iv Premix) 4.5 gm in 100 mls @ 100 mls/hr IVPB Q6 [facility] PRN Reason: Protocol Last Admin: 08/03/17 04:18 Dose: 100 mls/hr Sodium Chloride (Sodium Chloride 0.9%) 1,000 mls @ 999 mls/hr IV .Q1H1M [facility] Stop: 08/03/17 07:35 Last Admin: 08/02/17 08:28 Dose: 999 mls/hr Ketorolac Tromethamine (Toradol) 15 mg IVP Q6 PRN PRN Reason: Pain, moderate (4-7) Last Admin: 08/02/17 03:15 Dose: 15 mg Lactulose (Enulose) 20 gm PO DAILY [facility] Magnesium Oxide (Mag-Ox) 400 mg PO BID [facility] Last Admin: 08/02/17 18:28 Dose: 400 mg Morphine Sulfate (Morphine) 2 mg IVP Q6 PRN PRN Reason: Pain, moderate (4-7) Last Admin: 08/02/17 18:24 Dose: 2 mg Ondansetron HCl (Zofran Inj) 4 mg IVP Q6 PRN PRN Reason: Nausea/Vomiting Last Admin: 08/01/17 08:52 Dose: 4 mg Pantoprazole Sodium (Protonix Ec Tab) 40 mg PO DAILY [facility] Last Admin: 08/02/17 08:30 Dose: 40 mg Promethazine HCl/Codeine (Phenergan/Codeine Oral Syrup) 5 ml PO Q6 [facility] Last Admin: 08/03/17 04:18 Dose: 5 ml Propranolol HCl (Inderal) 20 mg PO BID [facility] Last Admin: 08/02/17 18:00 Dose: Not Given Spironolactone (Aldactone) 100 mg PO DAILY [facility] Last Admin: 08/01/17 16:40 Dose: 100 mg - Labs Labs: 08/01/17 01:25 12/19/17 07:28 PT 20.3 Seconds (9.8-13.1) H 08/02/17 07:28 INR 1.8 (0.9-1.2) H 08/02/17 07:28 APTT 44.8 Seconds (25.6-37.1) H 08/01/17 01:25 - Constitutional Appears: No Acute Distress - Head Exam Head Exam: NORMAL INSPECTION - Eye Exam Eye Exam: Normal appearance - Respiratory Exam Respiratory Exam: Chest Wall Tenderness, Decreased Breath Sounds (decreased breath sounds and base of left lung), Clear to Ausculation Bilateral - Cardiovascular Exam Cardiovascular Exam: REGULAR RHYTHM, +S1, +S2 - GI/Abdominal Exam GI & Abdominal Exam: Soft, Tenderness (umbilical hernia. ), Normal Bowel Sounds - Extremities Exam Extremities Exam: Normal Inspection. absent: Calf Tenderness - Neurological Exam Neurological Exam: Alert, Awake, CN II-XII Intact, Oriented x3 Neuro motor strength exam: Left Upper Extremity: 5, Right Upper Extremity: 5, Left Lower Extremity: 5, Right Lower Extremity: 5 Additional comments: Motor and sensory grossly intact - Skin Skin Exam: Warm Assessment and Plan - Assessment and Plan (Free Text) Assessment: Assessment: 31 year old female with hx of cryptogenic cirrhosis, admitted for hyperammonemia and left sided pleural effusion. (1) Intraventricular bleed - Neuro check Q1 - Patient found to have a intraventricular bleed most likely secondary to her coagulopathy. - Patient was transferred to ICU - Keep head of bed elevated - 2 units FFP, @ units of platelets, 2 units of FFP, Cryopercipitate - Neurosurg consulted: State patient is not a candidate for surgery here, recommend transferring patient. - Pending transfer to [facility] (2) Cryptogenic cirrhosis of liver Assessment and Plan: Pleural effusion possibly secondary to HCAP given CT findings. Pt on Cipro 500mg PO daily as outpatient for SBP prophylaxis Patient is alert and responsive, respirations are unlabored, O2 sat 99% on room air. IV abx ordered in ED for PNA. Will continue with tx for HCAP given CT findings and recent admission. She is on transplant list at [facility]. MELD SCORE: 20 points Gastroenterology consult - Patient has pancytopenia Status: Chronic (3) Hyperammonemia ( resolved) Assessment and Plan: repeat level ordered, monitor patient reports difficulty with taking her lactulose, and is likely noncompliant Lactulose daily GI consult appreciated Status: Acute (4) Abdominal pain Assessment and Plan: umbilical hernia, fat/fluid no bowel contents. toradol for pain PRN Status: Acute (5) Pancytopenia - 2 units of platelets given yesterday - 2 units FFP, @ units of platelets, 2 units of FFP, Cryopercipitate Status: Chronic Priority: Medium (6) Pleural effusion on left Assessment and Plan: - tx for hcap, monitor respiratory status. - Thoracentesis ordered for today - C/W IV levofloxacin and zosin Status: Acute (7) Coagulopathy Status: Chronic PT: 20.3, INR: 1.8 (8) DVT prophylaxis Assessment and Plan: scds Status: Acute
[2017-08-03] MEDS: levoFLOXacin 750 mg in D5W 750 MG/150 ML BAG IVPB SCH (09:00)
[2017-08-03] MEDS: Magnesium Oxide 400 mg Tab UD PO SCH ×2 (09:50→16:11)
[2017-08-03] MEDS: Pantoprazole 40 mg EC Tab PO SCH (09:51)
--- NOTE | 2017-08-03 12:47 | CT ---
PROCEDURE: CT HEAD WITHOUT CONTRAST. HISTORY: chills, headache, h/o intracranial bleed COMPARISON: 07/12/2017 TECHNIQUE: Axial computed tomography images were obtained through the head/brain without intravenous contrast. Radiation dose: Total exam DLP = mGy-cm. This CT exam was performed using one or more of the following dose reduction techniques: Automated exposure control, adjustment of the mA and/or kV according to patient size, and/or use of iterative reconstruction technique. FINDINGS: HEMORRHAGE: Large intraventricular hemorrhage involving the left lateral ventricle and 3rd ventricle. No intraparenchymal hemorrhage. BRAIN: No mass effect or edema. No atrophy or chronic microvascular ischemic changes. VENTRICLES: Unremarkable. No hydrocephalus. CALVARIUM: Unremarkable. PARANASAL SINUSES: Unremarkable as visualized. No significant inflammatory changes. MASTOID AIR CELLS: Unremarkable as visualized. No inflammatory changes. OTHER FINDINGS: None. IMPRESSION: Large intraventricular hemorrhage involving the left lateral ventricle and 3rd ventricle. No intraparenchymal hemorrhage. Nurse Ramirez notified of these findings at the time of dictation.
[2017-08-03] MEDS ORDERED: Aminocaproic Acid 5,000 MG in Dextrose 5% In Water 250 ML IV ONE ×2 (13:34→14:00)
[2017-08-03] MEDS ORDERED: Phytonadione 1 mg/0.5 ml Inj (Neonatal) IM ONE (13:38)
[2017-08-03] MEDS ORDERED: Desmopressin 4 mcg/ml Inj (10 ml) IV ONE (13:40)
[2017-08-03] MEDS ORDERED: Phytonadione 10 mg/ml Inj (Adult) IVPB ONE (13:43)
[2017-08-03] MEDS ORDERED: Dexamethasone 10 MG in Sodium Chloride 0.9% 50 ML IV ONE ×2 (13:46→14:35)
[2017-08-03] MEDS ORDERED: Magnesium Sulfate 2 GM in Sodium Chloride 0.9% 100 ML IVPB ONE (13:46)
[2017-08-03] MEDS ORDERED: Valproate 500 MG in Sodium Chloride 0.9% 100 ML IVPB ONE (13:47)
--- NOTE | 2017-08-03 14:04 | CP.CCUPN ---
<Barrera Samson - Last Filed: 08/03/17 16:03> CCU Subjective - Physician Review Subjective (Free Text): 31 y/o female with PMHx remarkable for cryptogenic liver cirrhosis, pancytopenia , splenomegaly, whom originally presented to [facility] with complaints of nausea and vomiting for one day seen and examined. Prior to admission, the nausea was worse than baseline and was associated with vomiting and decreased PO tolerance. Pt also reports several episodes of epistaxis prior to admission. Today she was transferred from telemetry floor to ICU after complaining of a new onset worsening headache since approx. 21:00 last night. Pt was evaluated at night without any intervention and was neurologically intact. Pt reports headache progressively worsened, and became 10/10 later this morning. Pt also reports an associated blurriness of vision that is of new onset this morning w/ o any other associated symptoms for focal neurological deficit. Stat non- contrast head CT showed left intraventricular hemorrhage in lateral ventricle with extension into the 3rd ventricle. No other complaints, she reports this is similar to that last time she had such a headache which required a drain to be placed at [facility] several months ago. She does not endorse any other complaints , but is nervous/upset about condition. Pt seen with ICU attending, inpatient team at bedside. ROS: as above, all other systems negative CCU Objective - Vital Signs / Intake & Output Intake and Output (Last 8hrs): Intake & Output 08/02/17 08/03/17 08/03/17 22:59 06:59 14:59 Intake Total 340 Balance 340 Intake: Intake, Piggyback 100 Oral 240 Other: # Voids Urine, Voided 2 # Bowel Movements 0 - Physical Exam Physical Exam Limitations: Positive for: Other (Alert). Negative for: Altered Mental Status Head: Positive for: Atraumatic, Normocephalic. Negative for: Contusion, Ecchymosis, Laceration Pupils: Positive for: PERRL Extroacular Muscles: Positive for: EOMI Conjunctiva: Positive for: Normal Mouth: Positive for: Moist Mucous Membranes Neck: Positive for: Normal Range of Motion. Negative for: Meningeal Signs, JVD Respiratory/Chest: Positive for: Clear to Auscultation, Decreased Breath Sounds (left lung base ). Negative for: Respiratory Distress, Accessory Muscle Use, Rales, Rhonchi, Tachypneic Cardiovascular: Positive for: Regular Rate and Rhythm, Normal S1, S2. Negative for: Murmurs Abdomen: Positive for: Normal Bowel Sounds. Negative for: Tenderness, Distention, Peritoneal Signs Lower Extremity: Negative for: Edema Neurological: Positive for: GCS=15, CN II-XII Intact, Speech Normal, Motor Func Grossly Intact, Normal Sensory Function, Normal Cerebellar Funct, Norm Deep Tendon Reflexes Skin: Positive for: Warm, Dry, Normal Color. Negative for: Rashes Psychiatric: Positive for: Alert, Oriented x 3, Normal Insight, Normal Concentration - Medications Active Medications: Active Medications Generic Name Dose Route Start Last Admin Trade Name Freq PRN Reason Stop Dose Admin Desmopressin Acetate 18 mcg 08/03/17 13:40 Ddavp IV 08/03/17 13:41 ONCE ONE Folic Acid 1 mg 08/01/17 09:00 08/03/17 09:50 Folic Acid PO 1 mg DAILY RHONDA Administration Furosemide 40 mg 08/01/17 09:00 08/01/17 11:08 Lasix PO 40 mg DAILY RHONDA Administration Home Med 50 mg 08/01/17 09:00 Zinc Gluconate [Zinc] PO DAILY RHONDA Levofloxacin/Dextrose 750 mg in 150 mls @ 150 mls/hr 08/01/17 09:00 08/03/17 09:00 Levaquin 750mg IVPB 150 mls/hr DAILY RHONDA Administration Piperacillin Sod/Tazobactam Sod 4.5 gm in 100 mls @ 100 mls/hr 08/02/17 04:00 08/03/17 04:18 Zosyn 4.5 Gm Iv Premix IVPB 100 mls/hr Q6 RHONDA Administration Protocol Aminocaproic Acid 19,000 mg/ 1,000 mls @ 200 mls/hr 08/03/17 13:39 Dextrose IV 08/03/17 13:40 ONCE ONE Magnesium Sulfate 2 gm/ Sodium 104 mls @ 104 mls/hr 08/03/17 13:46 Chloride IVPB 08/03/17 14:45 ONCE ONE 2 GM/HR Dexamethasone 10 mg/ Sodium 51 mls @ 100 mls/hr 08/03/17 13:46 Chloride IV 08/03/17 14:15 ONCE ONE Valproate Sodium 500 mg/ 105 mls @ 0 mls/hr 08/03/17 13:47 Sodium Chloride IVPB 08/03/17 13:48 ONCE ONE As Directed Aminocaproic Acid 5,000 mg/ 270 mls @ 270 mls/hr 08/03/17 14:00 Dextrose IV 08/03/17 14:59 .Q1H ONE Ketorolac Tromethamine 15 mg 08/01/17 06:00 08/02/17 03:15 Toradol IVP 15 mg Q6 PRN Administration Pain, moderate (4-7) Lactulose 20 gm 08/03/17 09:00 08/03/17 09:49 Enulose PO 20 gm DAILY RHONDA Administration Magnesium Oxide 400 mg 08/01/17 09:00 08/03/17 09:50 Mag-Ox PO 400 mg BID RHONDA Administration Morphine Sulfate 2 mg 08/02/17 17:58 08/03/17 13:52 Morphine IVP 2 mg Q6 PRN Administration Pain, moderate (4-7) Ondansetron HCl 4 mg 08/01/17 03:34 08/01/17 08:52 Zofran Inj IVP 4 mg Q6 PRN Administration Nausea/Vomiting Pantoprazole Sodium 40 mg 08/01/17 09:00 08/03/17 09:51 Protonix Ec Tab PO 40 mg DAILY RHONDA Administration Phytonadione 20 mg 08/03/17 13:43 Vitamin K Inj IVPB 08/03/17 13:44 ONCE ONE Promethazine HCl/Codeine 5 ml 08/02/17 16:00 08/03/17 04:18 Phenergan/Codeine Oral Syrup PO 5 ml Q6 RHONDA Administration Propranolol HCl 20 mg 08/02/17 07:34 08/03/17 09:50 Inderal PO Not Given BID [facility] Spironolactone 100 mg 08/01/17 09:00 08/01/17 16:40 Aldactone PO 100 mg DAILY RHONDA Administration - Patient Studies Lab Studies: Microbiology Studies 08/01/17 01:25 Blood Culture - Preliminary Blood-Venous NO GROWTH AFTER 48 HOURS 08/01/17 06:40 MRSA Culture (Admit) - Final Nose MRSA NOT DETECTED 08/01/17 09:32 Urine Culture - Final Urine No Growth (<1,000 CFU/ML) Critical Care Progress Note - Ventilator Checklist Head of Bed 30 Degrees: Yes PUD Prophalyxis: Yes (protonix ) DVT Prophylaxis: Yes (SCDs) - Extremities/Vascular Does the Patient have a Central Venous Catheter?: No Does the Patient have a Walls Catheter?: No Does the Patient need a Walls Catheter?: No - Prophylaxis GI Prophylaxis GI: PPI - Prophylaxis DVT Prophylaxis DVT: SCDs - Nutrition Nutrition: Nutrition Category Date Time Status Altered GI/Hepatic Diet [DIET] Diets 08/02/17 Lunch Active Assessment/Plan - Assessment and Plan (Free Text) Assessment: 31 y/o female with PMHx remarkable for cryptogenic cirrhosis, pancytopenia, admitted for HCAP with parapneumonic effusion transferred to ICU secondary to Acute Intraventricular Hemorrhage. Plan: 1) Acute Intraventricular Hemorrhage: Large IVH involving left lateral and 3rd ventricle w/o midline shift -BP: 96/62, HR 82, RR 16, POX 96% RA, pt clinically stable, AAOx3 -admitted to ICU -Neurology consult appreciated -head of bed elevation @ 35-45 degrees -monitor BPs in prevention of HTN -MgSO4 2 gm IV once, then Decadron 10 mg IV once for headache -Morphine 2mg PRN -Repeat Non-contrast Head CT in 6 hours -Head CTA for evaluation of possible anerysm or AVM -Neuro checks Q1H -awaiting records from [facility] -Neurosurgery on board: awaiting recommendations -Hematology onboard, orders in attempt to correct coagulopathy as listed below -Possible transfer to [facility] 2) Pancytopenia 2/2 to Hypersplenism/Liver Cirrhosis: -Chronic -CBC on 08/01: 1.7>9.0/26.9<9, repeat Platelets on 08/03: 28 -afebrile -HIV negative -s/p 2 units of platelets -2 more units of platelets ordered -2 units FFP: pending -2 units Cryoprecipitate: pending -20mg Vit K IVP -DDAVP 18mcg IV -Aminocaproic Acid as per Hematology, consider Kcentra if no improvement -repeat coagulation panel: pending -fibrinogen: pending 3) HCAP with Left Parapneumonic Effusion: -afebrile -no WBC 2/2 to pts immunocompromise -monitor vitals -Thoracentesis cancelled 2/2 to coagulopathy -c/w IV Levofloxacin -c/w IV Zosyn 4) Cryptogenic Cirrhosis of liver: -chronic, likely 2/2 autoimmune, pt worked up at [facility], awaiting records -Pleural effusion possibly secondary to HCAP given CT findings. -Ciprofloxacin 500mg PO QD SBP prophylaxis -She is on transplant list at [facility]. -MELD SCORE: 20 points -Gastroenterology consult appreciated 5) Hyperammonemia: -resolved -asymptomatic -history of lactulose noncompliance -Rifaxamine PO BID -GI consult appreciated -monitor 6) Transaminemia: -Chronic -2/2 to pts liver disease -improving -monitor 7) Diet: -Altered GI/hepatic 8) Code Status: -Full Code 9) Prophylaxis -SCDs for DVT as pt is thrombocytopenic with elevated INR -Protonix <JohnYasir Zhong - Last Filed: 08/03/17 16:31> CCU Subjective - Physician Review Subjective (Free Text): Attestation: Patient seen and examined at the bedside with Resident Dr. Rolando Samson; and I agree with his outline of plans and management documented above as discussed on AM rounds reflecting my review of all applicable clinical data, and participation in the care of the patient throughout the day in ICU; July. ICU transfer from [address] [place] [address] for Neuro-ICU monitoring for acute /sub-acute, or possible recurrent intraventricular [employer] Hemorrhage: 31F admitted 3 days ago for abdominal discomfort, has h/o of cryptogenic cirrhosis, coagulopathy, low platelets / splenomegaly, and chronic left pleural effusion; also previous ICH requiring [employer] drain placement several weeks ago, had recurrent headaches and visual changes and underwent CT Brain eval today showing evidence of a large left sided intraventricular bleed with extension to 3rd ventricle. She is currently awake and alert, conversant with no obvious focal neuro deficits, except for persistent headaches. Multiple abnormal lab parameters noted, discussed with Resident team, Recovery Collector and aware of their discussions with PMD, Neurology, and NeuroSurg. Plan now is to administer STAT platelets, FFP, Vitamin K, Cryoppt, DDAVP and Amicar. Repeat imaging planned after blood products administered unless plans to transfer patient to previous tertiary center which last managed patients ICH several weeks ago are cancelled and patient stays here. ICU team does recommend transfer to [facility] for further NeuroICU monitoring and as a facility capable of emergent treatment with ventricular decompression / drainage if needed. ADDENDUM: as of 430PM, patient accepted for transfer to [facility] tonight: MICU (I Yellow-1) under the service of Dr. Federico Dawson. Spoke to ICU Fellow ( [phone] pager) and ICU Fellow overnight will be Dr. Cummings. CCU Objective - Medications Active Medications: Active Medications Generic Name Dose Route Start Last Admin Trade Name Freq PRN Reason Stop Dose Admin Folic Acid 1 mg 08/01/17 09:00 08/03/17 09:50 Folic Acid PO 1 mg DAILY ROHNDA Administration Furosemide 40 mg 08/01/17 09:00 08/01/17 11:08 Lasix PO 40 mg DAILY RHONDA Administration Home Med 50 mg 08/01/17 09:00 Zinc Gluconate [Zinc] PO DAILY RHONDA Hydromorphone HCl 1 mg 08/03/17 16:18 08/03/17 16:26 Dilaudid IVP 1 mg Q4 PRN Administration Headache Levofloxacin/Dextrose 750 mg in 150 mls @ 150 mls/hr 08/01/17 09:00 08/03/17 09:00 Levaquin 750mg IVPB 150 mls/hr DAILY RHONDA Administration Piperacillin Sod/Tazobactam Sod 4.5 gm in 100 mls @ 100 mls/hr 08/02/17 04:00 08/03/17 16:12 Zosyn 4.5 Gm Iv Premix IVPB 100 mls/hr Q6 RHONDA Administration Protocol Aminocaproic Acid 19,000 mg/ 1,000 mls @ 200 mls/hr 08/03/17 15:00 08/03/17 15:01 Dextrose IV 08/03/17 19:59 200 mls/hr .Q5H ONE Administration Ketorolac Tromethamine 15 mg 08/01/17 06:00 08/02/17 03:15 Toradol IVP 15 mg Q6 PRN Administration Pain, moderate (4-7) Lactulose 20 gm 08/03/17 09:00 08/03/17 09:49 Enulose PO 20 gm DAILY RHONDA Administration Magnesium Oxide 400 mg 08/01/17 09:00 08/03/17 16:11 Mag-Ox PO 400 mg BID RHONDA Administration Morphine Sulfate 2 mg 08/02/17 17:58 08/03/17 13:52 Morphine IVP 2 mg Q6 PRN Administration Pain, moderate (4-7) Ondansetron HCl 4 mg 08/01/17 03:34 08/01/17 08:52 Zofran Inj IVP 4 mg Q6 PRN Administration Nausea/Vomiting Pantoprazole Sodium 40 mg 08/01/17 09:00 08/03/17 09:51 Protonix Ec Tab PO 40 mg DAILY RHONDA Administration Promethazine HCl/Codeine 5 ml 08/02/17 16:00 08/03/17 16:12 Phenergan/Codeine Oral Syrup PO 5 ml Q6 RHONDA Administration Propranolol HCl 20 mg 08/02/17 07:34 08/03/17 16:10 Inderal PO 20 mg BID RHONDA Administration Spironolactone 100 mg 08/01/17 09:00 08/01/17 16:40 Aldactone PO 100 mg DAILY RHONDA Administration - Patient Studies Lab Studies: Microbiology Studies 08/01/17 01:25 Blood Culture - Preliminary Blood-Venous NO GROWTH AFTER 48 HOURS 08/01/17 06:40 MRSA Culture (Admit) - Final Nose MRSA NOT DETECTED 08/01/17 09:32 Urine Culture - Final Urine No Growth (<1,000 CFU/ML)
[2017-08-03] MEDS ORDERED: PHYTONADIONE IV ONE (14:15)
[2017-08-03] MEDS ORDERED: SODIUM CHLORIDE 0.9% IV ONE (14:15)
[2017-08-03] MEDS ORDERED: Phytonadione 10 mg/ml Inj (Adult) ONE (14:23)
[2017-08-03] MEDS ORDERED: SODIUM CHLORIDE 0.9% IM ONE (14:30)
[2017-08-03] MEDS ORDERED: DESMOPRESSIN IM ONE (14:30)
[2017-08-03] MEDS ORDERED: Magnesium Sulfate 2 gm/50 ml 2 GM/50 ML BAG IVPB ONE (14:35)
--- NOTE | 2017-08-03 14:45 | CP.PCM.CON ---
History of Present Illness - History of Present Illness History of Present Illness: Ms. You Fagan is a 31-year-old woman with a past medical history of cryptogenic liver cirrhosis with portal hypertension, splenomegaly, admitted with N/V and abdominal pain, with pancytopenia and coagulopathy. Yesterday afternoon she developed a headache that has been gradually getting worse. Today , the headache was severe and she also complained of blurry vision. CT scan of the head showed a, mostly left sided, intraventricular hemorrhage with involvement of the 3rd ventricle. She did not have significant midline shift. She did not have any focal weakness, sensory changes, or changes in mental status. The patient is on a liver transplant list at [facility], and according to the history, she was there about 4 months ago and was diagnosed with intracranial hemorrhage, and had a ventriculostomy placed for two days. Review of Systems - Review of Systems All systems: reviewed and no additional remarkable complaints except Past Patient History - Infectious Disease Hx of Infectious Diseases: None - Past Medical History & Family History Past Medical History?: Yes - Past Social History Alcohol: None Drugs: Denies - CARDIAC Hx Cardiac Disorders: No - PULMONARY Hx Respiratory Disorders: No - NEUROLOGICAL Hx Neurological Disorder: No - HEENT Hx HEENT Problems: No - RENAL Hx Chronic Kidney Disease: No - ENDOCRINE/METABOLIC Hx Endocrine Disorders: No - HEMATOLOGICAL/ONCOLOGICAL Hx Anemia: Yes Hx Human Immunodeficiency Virus (HIV): No - INTEGUMENTARY Hx Dermatological Problems: No - MUSCULOSKELETAL/RHEUMATOLOGICAL Hx Musculoskeletal Disorders: No - GASTROINTESTINAL Hx Gastrointestinal Disorders: Yes Other/Comment: Umbilical Hernia - GENITOURINARY/GYNECOLOGICAL Hx Genitourinary Disorders: No - PSYCHIATRIC Hx Psychophysiologic Disorder: No Hx Substance Use: No - SURGICAL HISTORY Hx Surgeries: Yes Hx Splenectomy: Yes - ANESTHESIA Hx Anesthesia: Yes Hx Anesthesia Reactions: No Hx Malignant Hyperthermia: No Meds Allergies/Adverse Reactions: Allergies Allergy/AdvReac Type Severity Reaction Status Date / Time Seafood Allergy RASH Uncoded 08/01/17 01:01 - Medications Medications: Current Medications Folic Acid (Folic Acid) 1 mg PO DAILY [facility] Last Admin: 08/03/17 09:50 Dose: 1 mg Furosemide (Lasix) 40 mg PO DAILY [facility] Last Admin: 08/01/17 11:08 Dose: 40 mg Home Med (Zinc Gluconate [Zinc]) 50 mg PO DAILY [facility] Levofloxacin/Dextrose (Levaquin 750mg) 750 mg in 150 mls @ 150 mls/hr IVPB DAILY [facility] Last Admin: 08/03/17 09:00 Dose: 150 mls/hr Piperacillin Sod/Tazobactam Sod (Zosyn 4.5 Gm Iv Premix) 4.5 gm in 100 mls @ 100 mls/hr IVPB Q6 [facility] PRN Reason: Protocol Last Admin: 08/03/17 04:18 Dose: 100 mls/hr Aminocaproic Acid 19,000 mg/ (Dextrose) 1,000 mls @ 200 mls/hr IV .Q5H ONE Stop: 08/03/17 19:59 Aminocaproic Acid 5,000 mg/ (Dextrose) 270 mls @ 270 mls/hr IV .Q1H ONE Stop: 08/03/17 14:59 Phytonadione 20 mg/ Sodium (Chloride) 102 mls @ 102 mls/hr IV ONCE ONE Stop: 08/03/17 15:14 Desmopressin Acetate 18 mcg/ (Sodium Chloride) 104.5 mls @ 104.5 mls/hr IM ONCE ONE Stop: 08/03/17 15:29 Magnesium Sulfate 2 gm/ Sodium (Chloride) 104 mls @ 104 mls/hr IVPB ONCE ONE PRN Reason: 2 GM/HR Stop: 08/03/17 15:34 Ketorolac Tromethamine (Toradol) 15 mg IVP Q6 PRN PRN Reason: Pain, moderate (4-7) Last Admin: 08/02/17 03:15 Dose: 15 mg Lactulose (Enulose) 20 gm PO DAILY [facility] Last Admin: 08/03/17 09:49 Dose: 20 gm Magnesium Oxide (Mag-Ox) 400 mg PO BID [facility] Last Admin: 08/03/17 09:50 Dose: 400 mg Morphine Sulfate (Morphine) 2 mg IVP Q6 PRN PRN Reason: Pain, moderate (4-7) Last Admin: 08/03/17 13:52 Dose: 2 mg Ondansetron HCl (Zofran Inj) 4 mg IVP Q6 PRN PRN Reason: Nausea/Vomiting Last Admin: 08/01/17 08:52 Dose: 4 mg Pantoprazole Sodium (Protonix Ec Tab) 40 mg PO DAILY [facility] Last Admin: 08/03/17 09:51 Dose: 40 mg Promethazine HCl/Codeine (Phenergan/Codeine Oral Syrup) 5 ml PO Q6 [facility] Last Admin: 08/03/17 04:18 Dose: 5 ml Propranolol HCl (Inderal) 20 mg PO BID [facility] Last Admin: 08/03/17 09:50 Dose: Not Given Spironolactone (Aldactone) 100 mg PO DAILY [facility] Last Admin: 08/01/17 16:40 Dose: 100 mg Physical Exam - Constitutional Appears: Cachectic, Chronically Ill - Head Exam Head Exam: ATRAUMATIC, NORMAL INSPECTION, NORMOCEPHALIC - Eye Exam Eye Exam: EOMI, Scleral icterus Pupil Exam: NORMAL ACCOMODATION, PERRL - ENT Exam ENT Exam: Mucous Membranes Moist, Normal Exam - Neck Exam Neck exam: Positive for: Normal Inspection - Respiratory Exam Respiratory Exam: Clear to Auscultation Bilateral, NORMAL BREATHING PATTERN - Cardiovascular Exam Cardiovascular Exam: REGULAR RHYTHM, +S1, +S2 - GI/Abdominal Exam GI & Abdominal Exam: Organomegaly - Rectal Exam Rectal Exam: Deferred - Extremities Exam Extremities exam: Positive for: normal inspection - Back Exam Back exam: NORMAL INSPECTION - Neurological Exam Neurological exam: Alert, CN II-XII Intact, Normal Gait, Oriented x3, Reflexes Normal Additional comments: Strength and coordination are normal. Plantar responses were downgoing. - Psychiatric Exam Psychiatric exam: Normal Affect, Normal Mood - Skin Skin Exam: Dry, Intact, Normal Color, Warm Results - Vital Signs Recent Vital Signs: Last Vital Signs Temp 98.0 F 08/03/17 08:36 Pulse 82 08/03/17 09:50 Resp 20 08/03/17 08:36 BP 96/63 L 08/03/17 09:50 Pulse Ox 96 08/03/17 08:36 - Labs Result Diagrams: 08/01/17 01:25 08/02/17 07:28 Assessment & Plan (1) Intraventricular hemorrhage Assessment and Plan: It is difficult to determine if this hemorrhage is acute, or subacute. We will order and review records from [facility] for further evaluation. For now, we will continue managing the bleed as if it is acute and treat her headache accordingly. I recommend the followin. ICU admission 2. Q1 hour neuro-checks 3. Repeat CT head in 6 hours 4. Consider CTA of the head/neck to rule out vascular malformation 5. Keep head of bed elevated above 35-40 degrees. 6. Ensure the patient does not become hypertensive 7. Control any fevers 8. Treat headache with magnesium sulfate 2 grams IV once, and decadron 10 mg IV once 9. Consult neurosurgery 10. Consider transfer to [facility] 11. Follow coags and treat per hematology. Thank you. Status: Acute Priority: High (2) Cryptogenic cirrhosis of liver Status: Chronic Priority: Medium (3) Ascites of liver Status: Acute Priority: Medium (4) Thrombocytopenia Status: Acute Priority: High (5) Cirrhosis of liver Status: Chronic Priority: Medium (6) Coagulopathy Status: Chronic Priority: High (7) Pancytopenia Status: Chronic Priority: Medium
[2017-08-03] MEDS ORDERED: WATER IV ONE (15:00)
[2017-08-03] MEDS ORDERED: AMINOCAPROIC ACID IV ONE (15:00)
[2017-08-03] MEDS ORDERED: DEXTROSE 5% IV ONE (15:00)
--- NOTE | 2017-08-03 15:40 | CP.PCM.PN ---
Subjective - Date & Time of Evaluation Date of Evaluation: 08/03/17 Time of Evaluation: 15:34 - Subjective Subjective: spoke to resident and reviewed med record and CT scan There is high likelihood of deep thalamic AVM which bled into vernticles She is extremely thrombocytopenic and has elevated INR Given her hx of liver disease it is unlikely that correction of her bleeding factors and platelet transfusions will be anything more that offer a transient correction Given her status now it is not possible to consider any surgical intervention, which at this time luckily is not required. However given the situation it is probable that she may deteriorate at some point, again unless she has normal bleeding parameters, which will need to be sustained there is nothing to be done surgically I recommed the consideration of transfer to [facility] as her overall medical care is complex and probably would be best served in a true [place] setting Objective - Vital Signs/Intake and Output Vital Signs (last 24 hours): Temp Pulse Resp BP Pulse Ox 98.9 F 101 H 19 113/72 98 08/03/17 13:00 08/03/17 13:00 08/03/17 13:00 08/03/17 13:00 08/03/17 13:00 Intake and Output: 08/03/17 08/03/17 06:59 18:59 Intake Total 340 Balance 340 - Medications Medications: Current Medications Folic Acid (Folic Acid) 1 mg PO DAILY [facility] Last Admin: 08/03/17 09:50 Dose: 1 mg Furosemide (Lasix) 40 mg PO DAILY [facility] Last Admin: 08/01/17 11:08 Dose: 40 mg Home Med (Zinc Gluconate [Zinc]) 50 mg PO DAILY [facility] Levofloxacin/Dextrose (Levaquin 750mg) 750 mg in 150 mls @ 150 mls/hr IVPB DAILY [facility] Last Admin: 08/03/17 09:00 Dose: 150 mls/hr Piperacillin Sod/Tazobactam Sod (Zosyn 4.5 Gm Iv Premix) 4.5 gm in 100 mls @ 100 mls/hr IVPB Q6 RHONDA PRN Reason: Protocol Last Admin: 08/03/17 04:18 Dose: 100 mls/hr Aminocaproic Acid 19,000 mg/ (Dextrose) 1,000 mls @ 200 mls/hr IV .Q5H ONE Stop: 08/03/17 19:59 Last Admin: 08/03/17 15:01 Dose: 200 mls/hr Ketorolac Tromethamine (Toradol) 15 mg IVP Q6 PRN PRN Reason: Pain, moderate (4-7) Last Admin: 08/02/17 03:15 Dose: 15 mg Lactulose (Enulose) 20 gm PO DAILY [facility] Last Admin: 08/03/17 09:49 Dose: 20 gm Magnesium Oxide (Mag-Ox) 400 mg PO BID [facility] Last Admin: 08/03/17 09:50 Dose: 400 mg Morphine Sulfate (Morphine) 2 mg IVP Q6 PRN PRN Reason: Pain, moderate (4-7) Last Admin: 08/03/17 13:52 Dose: 2 mg Ondansetron HCl (Zofran Inj) 4 mg IVP Q6 PRN PRN Reason: Nausea/Vomiting Last Admin: 08/01/17 08:52 Dose: 4 mg Pantoprazole Sodium (Protonix Ec Tab) 40 mg PO DAILY [facility] Last Admin: 08/03/17 09:51 Dose: 40 mg Promethazine HCl/Codeine (Phenergan/Codeine Oral Syrup) 5 ml PO Q6 [facility] Last Admin: 08/03/17 04:18 Dose: 5 ml Propranolol HCl (Inderal) 20 mg PO BID [facility] Last Admin: 08/03/17 09:50 Dose: Not Given Spironolactone (Aldactone) 100 mg PO DAILY [facility] Last Admin: 08/01/17 16:40 Dose: 100 mg - Labs Labs: 08/01/17 01:25 08/02/17 07:28 PT 20.3 Seconds (9.8-13.1) H 08/02/17 07:28 INR 1.8 (0.9-1.2) H 08/02/17 07:28 APTT 44.8 Seconds (25.6-37.1) H 08/01/17 01:25
--- NOTE | 2017-08-03 17:41 | CP.PCM.DIS ---
Provider - Provider Date of Admission: 08/01/17 02:12 Attending physician: Greta Araya MD Time Spent in preparation of Discharge (in minutes): 30 Diagnosis - Discharge Diagnosis (1) Intraventricular hemorrhage Status: Acute Priority: High (2) Pleural effusion on left Status: Acute (3) Cryptogenic cirrhosis of liver Status: Chronic Priority: Medium Hospital Course - Lab Results Lab Results: Micro Results 08/01/17 01:25 Blood-Venous Blood Culture - Preliminary NO GROWTH AFTER 48 HOURS 08/01/17 06:40 Nose MRSA Culture (Admit) - Final MRSA NOT DETECTED 08/01/17 09:32 Urine Urine Culture - Final No Growth (<1,000 CFU/ML) Most Recent Lab Values WBC 1.7 K/uL (4.8-10.8) L* 08/01/17 01:25 RBC 2.81 Mil/uL (3.80-5.20) L 08/01/17 01:25 Hgb 9.0 g/dL (12.0-16.0) L 08/01/17 01:25 Hct 26.9 % (34.0-47.0) L 08/01/17 01:25 MCV 95.8 fl (81.0-99.0) 08/01/17 01:25 MCH 32.1 pg (27.0-31.0) H 08/01/17 01:25 MCHC 33.5 g/dL (33.0-37.0) 08/01/17 01:25 RDW 18.8 % (11.5-14.5) H 08/01/17 01:25 Plt Count 9 K/uL (130-400) L* D 08/01/17 01:25 Manual Plt Count 28 K/uL (130-400) L* 08/02/17 09:30 MPV 10.2 fl (7.2-11.7) 08/01/17 01:25 Neut % (Auto) 78.6 % (50.0-75.0) H 08/01/17 01:25 Lymph % (Auto) 7.7 % (20.0-40.0) L 08/01/17 01:25 Marion % (Auto) 13.0 % (0.0-10.0) H 08/01/17 01:25 Eos % (Auto) 0.6 % (0.0-4.0) 08/01/17 01:25 Baso % (Auto) 0.1 % (0.0-2.0) 08/01/17 01:25 Neut # 1.3 K/uL (1.8-7.0) L 08/01/17 01:25 Lymph # 0.1 K/uL (1.0-4.3) L 08/01/17 01:25 Marion # 0.2 K/uL (0.0-0.8) 08/01/17 01:25 Eos # 0.0 K/uL (0.0-0.7) 08/01/17 01:25 Baso # 0.0 K/uL (0.0-0.2) 08/01/17 01:25 Neutrophils % (Manual) 88 % (42-75) H 08/01/17 01:25 Lymphocytes % (Manual) 6 % (20-50) L 08/01/17 01:25 Monocytes % (Manual) 5 % (0-10) 08/01/17 01:25 Eosinophils % (Manual) 1 % (0-7) 08/01/17 01:25 Platelet Estimate Markedly decreased (NORMAL) L 08/01/17 01:25 Poikilocytosis (manual Slight 08/01/17 01:25 Anisocytosis (manual) Slight 08/01/17 01:25 Ovalocytes Slight 08/01/17 01:25 PT 20.3 Seconds (9.8-13.1) H 08/02/17 07:28 INR 1.8 (0.9-1.2) H 08/02/17 07:28 APTT 44.8 Seconds (25.6-37.1) H 08/01/17 01:25 Sodium 138 mmol/l (132-148) 08/02/17 07:28 Potassium 3.6 MMOL/L (3.6-5.0) 08/02/17 07:28 Chloride 114 mmol/L (98-107) H 08/02/17 07:28 Carbon Dioxide 19 mmol/L (22-30) L 08/02/17 07:28 Anion Gap 9 (10-20) L 08/02/17 07:28 BUN 21 mg/dl (7-17) H 08/02/17 07:28 Creatinine 0.9 mg/dl (0.7-1.2) 08/02/17 07:28 Est GFR ( Amer) > 60 08/02/17 07:28 Est GFR (Non-Af Amer) > 60 08/02/17 07:28 Random Glucose 82 mg/dL (65-105) 08/02/17 07:28 Lactic Acid 0.9 MMOL/L (0.7-2.1) 08/01/17 01:25 Calcium 7.8 mg/dL (8.4-10.2) L 08/02/17 07:28 Total Bilirubin 1.9 mg/dl (0.2-1.3) H 08/02/17 07:28 AST 45 U/L (14-36) H D 08/02/17 07:28 ALT 61 U/L (9-52) H 08/02/17 07:28 Alkaline Phosphatase 95 U/L (38-126) 08/02/17 07:28 Ammonia 24 umo/L (11-51) D 08/02/17 08:57 Lactate Dehydrogenase 475 U/L (313-618) 08/02/17 08:57 Total Protein 5.0 G/DL (6.3-8.2) L 08/02/17 07:28 Albumin 2.2 g/dL (3.5-5.0) L 08/02/17 07:28 Globulin 2.8 gm/dL (2.2-3.9) 08/02/17 07:28 Albumin/Globulin Ratio 0.8 (1.0-2.1) L 08/02/17 07:28 Lipase 148 U/L (23-300) 08/01/17 01:25 Procalcitonin 0.25 NG/ML (0.19-0.49) 08/01/17 04:20 Urine Color Yellow (YELLOW) 08/01/17 01:15 Urine Clarity Slighty-cloudy (Clear) 08/01/17 01:15 Urine pH 6.0 (5.0-8.0) 08/01/17 01:15 Ur Specific Shickley 1.020 (1.003-1.030) 08/01/17 01:15 Urine Protein Negative mg/dL (NEGATIVE) 08/01/17 01:15 Urine Glucose (UA) Neg mg/dL (Normal) 08/01/17 01:15 Urine Ketones Negative mg/dL (NEGATIVE) 08/01/17 01:15 Urine Blood Large (NEGATIVE) 08/01/17 01:15 Urine Nitrate Negative (NEGATIVE) 08/01/17 01:15 Urine Bilirubin Negative (NEGATIVE) 08/01/17 01:15 Urine Urobilinogen 0.2-1.0 mg/dL (0.2-1.0) 08/01/17 01:15 Ur Leukocyte Esterase Neg Oren/uL (Negative) 08/01/17 01:15 Urine RBC (Auto) 44 /hpf (0-3) H 08/01/17 01:15 Urine Microscopic WBC 2 /hpf (0-5) 08/01/17 01:15 Ur Squamous Epith Cells 1 /hpf (0-5) 08/01/17 01:15 Urine Bacteria Rare (<OCC) 08/01/17 01:15 Hyaline Casts 0-2 /hpf (0-2) 08/01/17 01:15 Blood Type A POSITIVE 08/01/17 02:20 Antibody Screen Negative 08/01/17 02:20 BBK History Checked Patient has bt 08/01/17 02:20 - Hospital Course Hospital Course: 31 year old female with PMH of cryptogenic cirrhosis, pancytopenia, previous intracranial bleed was admitted for nausea, vomiting and abdominal pain. Patient was having some difficulty breathing and was having coughing during her stay. Imaging was done and patient was noted to have a large left sided plural effusion and some possible consolidation. She was given IV antibiotics and started on treatment for HCAP. Patient was scheduled tor a thoracocentesis however was unable to do the procedure because of patients platelet count did not improve much after two units of platelets even after two units of transfusion. - Patient developed a progressively worsening headache. CT of the head was ordered. Patient was found a have a large intraventricular bleed. Neurosurgery was consulted, .Patient was transferred to [facility] for further treatment Discharge Exam - Head Exam Head Exam: NORMAL INSPECTION - Eye Exam Eye Exam: Normal appearance - Neck Exam Neck exam: Full Rom Additional comments: No neck tenderness. Brudzink and kernig sign negative - Respiratory Exam Respiratory Exam: Clear to PA & Lateral, NORMAL BREATHING PATTERN. absent: Wheezes, Respiratory Distress - Cardiovascular Exam Cardiovascular Exam: REGULAR RHYTHM, +S1, +S2 - GI/Abdominal Exam GI & Abdominal Exam: Normal Bowel Sounds, Soft, Tenderness Additional comments: Protruding umbical hernia - Neurological Exam Neurological exam: Alert, CN II-XII Intact, Oriented x3 Additional comments: Motor and sensation grossly intact - Skin Skin Exam: Normal Color, Warm Discharge Plan - Follow Up Plan Condition: GUARDED Disposition: OTHER INSTITUTION Additional Instructions: Transfer to [facility]
--- NOTE | 2017-08-03 18:31 | CT ---
PROCEDURE: CT HEAD WITHOUT CONTRAST. HISTORY: f/u Intraventricular Hemorrhage COMPARISON: Noncontrast head CT performed 08/03/17, 07/12/17 TECHNIQUE: Axial computed tomography images were obtained through the head/brain without intravenous contrast. Radiation dose: Total exam DLP = 833.05 mGy-cm. This CT exam was performed using one or more of the following dose reduction techniques: Automated exposure control, adjustment of the mA and/or kV according to patient size, and/or use of iterative reconstruction technique. FINDINGS: HEMORRHAGE: Large intraventricular hemorrhage re-identified involving the left lateral ventricle and 3rd ventricle similar to prior study. BRAIN: No mass effect or edema. Mild encephalomalacia within the right frontal lobe. Mild scattered white matter hypodensities, which are nonspecific, but often seen with chronic microvascular ischemic disease. Please note that MRI with diffusion imaging is more sensitive in the detection of acute ischemic event. VENTRICLES: As above. CALVARIUM: Evidence of prior rachel hole, right frontal calvarium. PARANASAL SINUSES: Unremarkable as visualized. No significant inflammatory changes. MASTOID AIR CELLS: Unremarkable as visualized. No inflammatory changes. OTHER FINDINGS: None. IMPRESSION: Large intraventricular hemorrhage re-identified involving the left lateral ventricle and 3rd ventricle similar to prior study. Additional incidental findings as above.
[2017-08-03 20:38] VITALS: BP 107/70; PULSE 91; RESP 17; TEMP 98.3; O2SAT 94
--- NOTE | 2017-08-04 18:10 | CP.PCM.PN ---
Subjective - Date & Time of Evaluation Date of Evaluation: 08/03/17 Time of Evaluation: 14:00 - Subjective Subjective: Has headache transferred to ICU for ICH Objective - Vital Signs/Intake and Output Vital Signs (last 24 hours): Temp Pulse Resp BP Pulse Ox 98.3 F 91 H 17 107/70 94 L 08/03/17 20:00 08/03/17 20:00 08/03/17 20:00 08/03/17 20:00 08/03/17 20:00 - Labs Labs: 08/01/17 01:25 08/02/17 07:28 PT 20.3 Seconds (9.8-13.1) H 08/02/17 07:28 INR 1.8 (0.9-1.2) H 08/02/17 07:28 APTT 44.8 Seconds (25.6-37.1) H 08/01/17 01:25 - Head Exam Head Exam: ATRAUMATIC - Eye Exam Eye Exam: Scleral icterus - Respiratory Exam Respiratory Exam: Clear to Ausculation Bilateral - Cardiovascular Exam Cardiovascular Exam: +S1, +S2 - GI/Abdominal Exam GI & Abdominal Exam: Normal Bowel Sounds Assessment and Plan (1) Intracranial hemorrhage Assessment & Plan: to receive 2U platelet, 2U FFP, vit K IV, desmopressin 0.3 mcg/kg IV, and aminocaproic acid drip repeat imaging of brain per neurology/neurosurgery if bleeding or clinical status worsens, for prothrombin concentrate infusion transfer to [facility] Status: Acute (2) Pancytopenia Status: Chronic (3) Coagulopathy Status: Chronic
== END 2017-08-03 20:20 | disposition short-term general hospital (02) | DRG 557 ==
LOC: H.ER 23:46 → H.ERHOLD 08-01 02:12 → H.ICU/CCU 08-01 03:31 → H.TEL 08-01 19:47 → H.ICU/CCU 08-03 13:06
PROVIDERS: ADMIT Family Medicine Geriatric Medicine; ATTEND Family Medicine Geriatric Medicine
PROC: 6A551Z2 Pheresis of Platelets, Multiple (ICD-10-PCS; principal; 2017-08-01)
PROC: 30233K1 Transfusion of Nonautologous Frozen Plasma into Peripheral Vein, Percutaneous Approach (ICD-10-PCS; 2017-08-03)
DX: K74.69 Other cirrhosis of liver (principal); J18.9 Pneumonia, unspecified organism; I61.5 Nontraumatic intracerebral hemorrhage, intraventricular; D61.818 Other pancytopenia; J91.8 Pleural effusion in other conditions classified elsewhere; E72.20 Disorder of urea cycle metabolism, unspecified; Z76.82 Awaiting organ transplant status; D68.4 Acquired coagulation factor deficiency; R18.8 Other ascites; K76.6 Portal hypertension; Y95 Nosocomial condition; Z91.013 Allergy to seafood; Z91.14 Patient's other noncompliance with medication regimen; R16.1 Splenomegaly, not elsewhere classified; R74.0 Nonspecific elevation of levels of transaminase and lactic acid dehydrogenase [LDH]; K43.9 Ventral hernia without obstruction or gangrene